=== PATIENT | female | born 1930 | race Caucasian/White ===

== ENCOUNTER 2018-04-18 16:07 | Emergency (ER) | payer MEDICARE, BC ==
[~2018-04-18] VITALS: Ht 160 cm; Wt 67.0 kg
[~2018-04-18 16:07] MED LIST: COUM2.5T PO; DOFE500 PO; FURO1TAB60 PO; LOSA50TA PO; METO50TA PO; NORC5TAB PO; OCUVTAB PO; PANT40TA3 PO; POTA-163 PO
[2018-04-18 16:46] VITALS: BP 113/69; PULSE 109; RESP 17; TEMP 97.3; O2SAT 98
[2018-04-18 17:46] LABS: BASOPHIL # 0.1 TH/MM3 (0-0.2); BASOPHIL % 2.1 % (0.0-2.0); EOSINOPHIL # 0.3 TH/MM3 (0-0.4); EOSINOPHIL % 5.1 % (0.0-4.0); HEMATOCRIT 37.3 % (35.0-46.0); HEMOGLOBIN 12.1 GM/DL (11.6-15.3); LYMPH % 19.4 % (9.0-44.0); MEAN CELL VOLUME 95.9 FL (80.0-100.0); MEAN CORPUSCULAR HEMOGLOBIN 31.1 PG (27.0-34.0); MEAN CORPUSCULAR HGB CONC 32.4 % (32.0-36.0); MEAN PLATELET VOLUME 7.9 FL (7.0-11.0); MONO % 14.6 % (0.0-8.0); MONOCYTE # 0.7 TH/MM3 (0-0.9); NEUT % 58.8 % (16.0-70.0); PLATELET COUNT 287 TH/MM3 (150-450); RED BLOOD COUNT 3.89 MIL/MM3 (4.00-5.30); WHITE BLOOD COUNT 5.1 TH/MM3 (4.0-11.0)
[2018-04-18 17:59] LABS: LACTIC ACID SEPSIS PROTOCOL 2.2 mmol/L (0.4-2.0)
[2018-04-18 18:02] LABS: ALBUMIN 3.3 GM/DL (3.4-5.0); ALT (GPT) 23 U/L (10-53); AST (GOT) 33 U/L (15-37); BICARBONATE 34.4 MEQ/L (21.0-32.0); BLOOD UREA NITROGEN 19 MG/DL (7-18); CALCIUM 8.8 MG/DL (8.5-10.1); CHLORIDE 102 MEQ/L (98-107); CREATININE 1.25 MG/DL (0.50-1.00); GLOMERULAR FILTRATION RATE 41 ML/MIN (>89); GLUCOSE,RANDOM 92 MG/DL (74-106); SODIUM (NA) 143 MEQ/L (136-145)
[2018-04-18 18:04] LABS: ALKALINE PHOSPHATASE 110 U/L (45-117); TOTAL BILIRUBIN ADULT 1.8 MG/DL (0.2-1.0); TOTAL PROTEIN 7.6 GM/DL (6.4-8.2)
[2018-04-18 19:24] LABS: BILIRUBIN, URINE NEG (NEG); BLOOD, URINE NEG (NEG); GLUCOSE,URINE NEG (NEG); KETONE, URINE NEG (NEG); NITRITE,URINE NEG (NEG); SQUAMOUS EPITHELIAL CELL URINE <1 /hpf (0-5); URINE COLOR LIGHT-YELLOW (YELLW/STRAW); URINE LEUKOCYTE ESTERASE NEG (NEG)
[2018-04-18 19:38] VITALS: BP 125/60; PULSE 109; RESP 18; O2SAT 98
--- NOTE | 2018-04-18 19:55 | PD ---
HPI Chief Complaint: Altered Mental Status Time Seen by Provider: 19:50 Travel History International Travel<30 days: No Contact w/Intl Traveler<30days: No Traveled to known affect area: No History of Present Illness HPI 87-year-old female presents to the emergency department by private transportation the care of her [id number]-uco for evaluation of possible altered mentation. Patient has underlying dementia diagnosis. Patient was recently hospitalized 1 month for pneumonia sepsis in [facility] and recently returned back to the [facility] where she lives with her daughter-in- law. Patient had been in the care of her grandson. Patient returned Sunday and according to the kibllccs-hh-xzz she was in her normal normal health and her baseline mentation. Patient was actually seen by her primary care provider Dr. Cisse on 04/17/18 for a routine medicine visit at which time her INR was checked and was reportedly elevated at 6.8. At that time the recommendation was to hold her Coumadin dosing. Reportedly according to the [id number]-mc-gmq last evening last afternoon she started act peculiar acting as though she was confused and even reportedly walked about the house without clothing at one point. The zmdfrigo-vr-crg phoned the primary care provider this morning Dr. Cisse and told her of her change in behavior he ordered a CT brain noncontrast to be performed as an outpatient for tomorrow at [place] but because of her intermittent confusion the daughter decided to bring her to the emergency department at this time. According to the daughter- in-law and the patient she has had no fever patient denies chills patient has had no headache no change in her speech no chest pain no shortness of breath no cough no abdominal pain no reported nausea no vomiting no diarrhea no dysuria no frequency no urgency no new joint pain joint swelling or skin rash. Patient has been noted to have some chronic recurrent pedal and ankle edema that is associated with dependent position but resolves upon lower extremity elevation. There is been no report of shortness of breath orthopnea PND dyspnea on exertion. Patient here denies any symptoms. Patient does report occasionally she will have some chest discomfort and while she was hospitalized she had chest discomfort that was treated with Tylenol but when she returned home she did receive a one-time dose of hydrocodone with acetaminophen that resolved her symptoms. Patient has had no chest pain over the past several days and daughter -in-law reports she only received a one-time half dose of hydrocodone with acetaminophen on Sunday and has had no subsequent doses of narcotic medication. Patient is taking no antibiotics. Patient's chronic medications does include warfarin. Past medical history is significant for hypertension atrial fibrillation aortic valve replacement CHF GERD pneumonia with sepsis and patient is status post aortic valve replacement hysterectomy AICD pacemaker placement and left ankle tib-fib fracture repair. No tobacco use no alcohol use. PFS Past Medical History Narrative Medical Coumadin therapy hypertension A. fib CHF GERD pneumonia sepsis aortic valve replacement and ICD pacemaker appendectomy hysterectomy left ankle fracture repair tib-fib fracture repair no tobacco use no alcohol use; nursing notes reviewed Arthritis: No Asthma: No Autoimmune Disease: No Anxiety: No Depression: No Heart Rhythm Problems: Yes (AFIB) Cancer: No Cardiovascular Problems: Yes High Cholesterol: No Chemotherapy: No Chest Pain: No Congestive Heart Failure: Yes COPD: No Cerebrovascular Accident: No Diabetes: No Diminished Hearing: Yes Endocrine: No Gastrointestinal Disorders: Yes (GERD) GERD: Yes Genitourinary: No Headaches: No Hiatal Hernia: No Heparin Induced Thrombocytopen: No Hypertension: Yes Immune Disorder: No Implanted Vascular Access Dvce: Yes Kidney Stones: No Musculoskeletal: No Neurologic: Yes Psychiatric: No Reproductive: No Respiratory: Yes Migraines: No Radiation Therapy: No Renal Failure: No Seizures: No Sickle Cell Disease: No Sleep Apnea: No Thyroid Disease: No Ulcer: No Tetanus Vaccination: Unknown Influenza Vaccination: Yes Past Surgical History Abdominal Surgery: Yes (APPENDECTOMY) AICD: Yes Appendectomy: Yes Arteriovenous Shunt: No Cardiac Surgery: Yes (AICD;AVR) Ear Surgery: No Endocrine Surgery: No Eye Surgery: No Genitourinary Surgery: No Gynecologic Surgery: No Hysterectomy: Yes Insulin Pump: No Joint Replacement: Yes (LEFT ANKLE//SPIRAL FX LEFT TIB/FIB) Neurologic Surgery: No Oral Surgery: No Pacemaker: No Thoracic Surgery: No Other Surgery: Yes Social History Alcohol Use: No Tobacco Use: No Substance Use: No Allergies-Medications (Allergen,Severity, Reaction): Coded Allergies: benazepril (Unverified Allergy, Severe, 06/26/17) captopril (Unverified Allergy, Severe, 06/26/17) enalaprilat (Unverified Allergy, Severe, 06/26/17) fosinopril (Unverified Allergy, Severe, 06/26/17) lisinopril (Unverified Allergy, Severe, 06/26/17) penicillin G (Unverified Allergy, Severe, 06/26/17) quinapril (Unverified Allergy, Severe, 06/26/17) Reported Meds & Prescriptions Reported Meds & Active Scripts Active Ceftin (Cefuroxime Axetil) 250 Mg Tab 500 Mg PO BID 7 Days Reported Spironolactone 25 Mg Tab 25 Mg PO DAILY Digoxin 0.125 Mg Tab 0.125 Mg PO DAILY [place] Respiclick Inh (Fluticasone Propionate) 55 Mcg/Actuation Aer.pow.ba 55 Mg INH BID Torsemide 20 Mg Tab 20 Mg PO DAILY Acetaminophen 325 Mg Capsule Lactulose Liq (Lactulose) 10 Gm/15 Ml Soln 30 Ml PO Q6H PRN Warfarin 4 Mg Tab 4 Mg PO DAILY [place] (Hydrocodone-Acetaminophen) 5-325 mg Tab 1-2 Tab PO Q6H PRN Ocuvite (Multiple Vitamins W/ Minerals) 1 Tab 1 Tab PO DAILY Metoprolol Tartrate 50 Mg Tab 50 Mg PO BID Potassium Chloride ER (Potassium Chloride) 20 Meq Tab 20 Meq PO QID (KLOR-CON) Review of Systems Except as stated in HPI: all other systems reviewed are Neg General / Constitutional: No: Fever, Chills HENT: No: Headaches, Lightheadedness, Sore Throat, Congestion, Neck Pain Cardiovascular: Positive: Edema (Dependent), No: Chest Pain or Discomfort, Palpitations, Diaphoresis, Syncope, Dyspnea on exertion Respiratory: No: Cough ( pedal and ankle edema), Shortness of Breath, Wheezing Gastrointestinal: No: Nausea, Vomiting, Diarrhea, Abdominal Pain Genitourinary: No: Urgency, Frequency, Dysuria Musculoskeletal: Positive: Edema, No: Myalgias, Arthralgias Skin: No Rash (Recurrent dependent pedal and ankle edema) Neurologic: Positive: Change in Mentation (Orxixxpv-it-zxe states intermittent agitation and at times behavior change), No: Weakness, Dizziness, Syncope, Focal Abnormalities Psychiatric: No: Anxiety, Depression, Suicidal Ideations Hematologic/Lymphatic: No: Easy Bruising (Noted elevated INR 04/17/18) Physical Exam Narrative GENERAL: Well-developed well-nourished pleasant female no acute distress no respiratory distress is aware of who she is where she is her date of her zpvwnlnb-tc-oif and identified president but unable to identify the year--this is baseline mentation according to fozyjvtk-cj-csf at bedside SKIN: Warm and dry. HEAD: Atraumatic. Normocephalic. EYES: Pupils equal and round. No scleral icterus. No injection or drainage. ENT: No nasal bleeding or discharge. Mucous membranes pink and moist. NECK: Trachea midline. No JVD. CARDIOVASCULAR: Regular rate and rhythm. RESPIRATORY: No accessory muscle use. Clear to auscultation. Breath sounds equal bilaterally. GASTROINTESTINAL: Abdomen soft, non-tender, nondistended. Hepatic and splenic margins not palpable. MUSCULOSKELETAL: Extremities without clubbing, cyanosis, bilateral distal lower leg ankle and pedal edema. No obvious deformities. Radial and dorsalis pedis pulses 2+ to palpation bilaterally NEUROLOGICAL: Awake and alert. No obvious cranial nerve deficits. Motor grossly within normal limits. Five out of 5 muscle strength in the arms and legs. Normal speech. PSYCHIATRIC: Appropriate mood and affect; insight and judgment normal. Data Data Last Documented VS Vital Signs Date Time Temp Pulse Resp B/P (MAP) Pulse Ox O2 Delivery O2 Flow Rate FiO2 04/18/18 23:22 04/18/18 22:52 95 16 98 Room Air 04/18/18 16:46 97.3 Orders Orders Complete Blood Count With Diff (04/18/18 16:48) Comprehensive Metabolic Panel (04/18/18 16:48) Urinalysis - C+S If Indicated (04/18/18 16:48) Lactic Acid Sepsis Protocol (04/18/18 16:48) Ct Brain W/O Iv Contrast(Rout) (04/18/18 ) Electrocardiogram (04/18/18 ) Chest, Single Ap (04/18/18 ) Troponin I (04/18/18 19:50) Ckmb (Isoenzyme) Profile (04/18/18 19:50) Lipase (04/18/18 19:50) Prothrombin Time / Inr (Pt) (04/18/18 19:50) Chest, Pa & Lat (04/18/18 ) Sodium Chlor 0.9% 250 Ml Inj (Ns 250 Ml (04/18/18 21:45) Blood Culture (04/18/18 22:42) Ceftriaxone Inj (Rocephin Inj) (04/18/18 22:45) Ed Discharge Order (04/18/18 23:21) Labs Laboratory Tests Test 04/18/18 17:25 04/18/18 18:48 04/18/18 20:10 White Blood Count 5.1 TH/MM3 Red Blood Count 3.89 MIL/MM3 Hemoglobin 12.1 GM/DL Hematocrit 37.3 % Mean Corpuscular Volume 95.9 FL Mean Corpuscular Hemoglobin 31.1 PG Mean Corpuscular Hemoglobin Concent 32.4 % Red Cell Distribution Width 18.0 % Platelet Count 287 TH/MM3 Mean Platelet Volume 7.9 FL Neutrophils (%) (Auto) 58.8 % Lymphocytes (%) (Auto) 19.4 % Monocytes (%) (Auto) 14.6 % Eosinophils (%) (Auto) 5.1 % Basophils (%) (Auto) 2.1 % Neutrophils # (Auto) 3.0 TH/MM3 Lymphocytes # (Auto) 1.0 TH/MM3 Monocytes # (Auto) 0.7 TH/MM3 Eosinophils # (Auto) 0.3 TH/MM3 Basophils # (Auto) 0.1 TH/MM3 CBC Comment DIFF FINAL Differential Comment Blood Urea Nitrogen 19 MG/DL Creatinine 1.25 MG/DL Random Glucose 92 MG/DL Total Protein 7.6 GM/DL Albumin 3.3 GM/DL Calcium Level 8.8 MG/DL Alkaline Phosphatase 110 U/L Aspartate Amino Transf (AST/SGOT) 33 U/L Alanine Aminotransferase (ALT/SGPT) 23 U/L Total Bilirubin 1.8 MG/DL Sodium Level 143 MEQ/L Potassium Level 3.6 MEQ/L Chloride Level 102 MEQ/L Carbon Dioxide Level 34.4 MEQ/L Anion Gap 7 MEQ/L Estimat Glomerular Filtration Rate 41 ML/MIN Lactic Acid Level 2.2 mmol/L 2.1 mmol/L Total Creatine Kinase 54 U/L Troponin I 0.02 NG/ML Lipase 206 U/L Urine Color LIGHT-YELLOW Urine Turbidity CLEAR Urine pH 7.0 Urine Specific [place] 1.006 Urine Protein NEG mg/dL Urine Glucose (UA) NEG mg/dL Urine Ketones NEG mg/dL Urine Occult Blood NEG Urine Nitrite NEG Urine Bilirubin NEG Urine Urobilinogen LESS THAN 2.0 MG/DL Urine Leukocyte Esterase NEG Urine RBC LESS THAN 1 /hpf Urine WBC LESS THAN 1 /hpf Urine Squamous Epithelial Cells <1 /hpf Microscopic Urinalysis Comment CULT NOT INDICATED Prothrombin Time 48.8 SEC Prothromb Time International Ratio 4.9 RATIO MDM Medical Decision Making Medical Screen Exam Complete: Yes Emergency Medical Condition: Yes Medical Record Reviewed: Yes Interpretation(s) EKG: Ventricular paced rhythm rate 114 Differential Diagnosis Altered mental status, dehydration, hypoxemia, sepsis, UTI, pneumonia, electrolyte disturbance, TIA, CVA, coagulopathy, dementia exacerbation, , adverse medication reaction Narrative Course Pleasant 87-year-old female in no acute distress no apparent distress vital signs remarkable for mild tachycardia heart rate 109 stable blood pressure O2 saturations and afebrile. Specimens collected per protocol in triage; additional orders will include EKG and cardiac enzymes INR is patient is on Coumadin and CT brain noncontrast and chest x-ray is patient with recent pneumonia; current lab values resulted CBC with automated differential normal total white cell count otherwise grossly within normal range except for nonspecific monocytosis; complete metabolic panel values grossly normal range except for renal insufficiency BUN 19 creatinine 1.25; urinalysis normal. EKG is paced rhythm rate of 114; cardiac enzymes are found to be in normal range ; INR is 4.9 this is decreased from reported INR of 6.8 at doctor's office yesterday; CT brain noncontrast reveals no acute intracranial abnormality and specifically no bleed; chest x-ray reveals no acute obvious abnormality on AP portable study although electrode overlies area of suspicion for possible infiltrate therefore electrodes changed location and chest x-ray PA and lateral ordered; also as part of initial labs ordered a lactic acid was obtained which was 2.2 mildly elevated however repeat lactic acid per sepsis protocol was 2.1 without any medication intervention. Patient will be given small bolus of normal saline in view of heart rate and renal insufficiency along with repeat chest x-ray and patient be reassessed for probable outpatient management as no clear indication for admission at this time @ 9:45 ambulates with ease with walker assistance to bathroom and back in no acute distress no respiratory distress without complaint of discomfort fatigue or pain. Patient and wnenqvee-[id number] informed INR has now decreased to 4.9 after holding Wednesdays dose of Coumadin and patient has not yet received dose of Coumadin is encouraged that this does be held as well with recommendation for INR recheck tomorrow Sunday through her primary care provider or through the emergency department. At this point time only significant lab abnormality with relative nonspecific information is a lactic acid of 2.2 upon initial assessment and because performed is a sepsis protocol repeat lactic acid was 2.1 without intervention patient is noted to have some mild renal insufficiency has been ordered a 250 bolus of normal saline remains afebrile in the emergency department will obtain additional complete set of vital signs with plan to discharge patient to home with close follow-up through primary care provider and with ongoing monitoring of temperature at home. At 11:20 PM patient is responded well to fluid hydration patient has been given one-time dose of IV antibiotic and stable for oral antibiotic as an outpatient patient is continue current medications as presently prescribed except she is to hold her warfarin/Coumadin dose again today 04/18/18 and she should have her INR checked tomorrow 04/19/18 at her primary care provider's office or through the emergency department. Patient is complete oral antibiotic as prescribed. Daughter is to monitor her closely for fever and patient and daughter are aware of plan for return to the emergency department for reevaluation should she develop fever or have another episode of change in behavior. Mentation appears intact at this time patient has been completely coherent cooperative and able to provide all her information [id number] affirming her mentation being back to normal at this time. Unclear as to significance of lactic acid of 2.2 patient has remained afebrile tachycardia has resolved and blood pressures remained stable patient appears stable at this time for outpatient management of nonspecific left pulmonary infiltrate on chest x-ray unclear if this is residual from pneumonia that was identified during hospitalization recently at [facility] supratherapeutic INR is being addressed with holding warfarin and identifies this to be tapering towards therapeutic range and dependent edema is a chronic condition that is not a new finding. Sepsis Criteria SIRS Criteria (2 or more): Heart rate over 90 Diagnosis Primary Impression: Supratherapeutic INR Additional Impressions: Left pulmonary infiltrate on CXR Dependent edema Referrals: Roman Cisse MD 1 day Patient Instructions: General Instructions Additional Instructions: Monitor temperature every 4 hours with thermometer administer as needed Tylenol every 4-6 hours for fever 100.4F or greater Encourage fluid hydration Elevate lower extremities Complete course of antibiotic as prescribed Follow-up with primary care provider 1 day for reevaluation and for INR check Return to the emergency department for concern or change in condition; recommend 1 day recheck to the emergency department if unable to be seen by primary care in order to have INR rechecked and to reassess status in 12-24 hours. Med/Other Pt SpecificInfo: Existing Med Changed (HOLD COUMADIN 04/18/18; INR check 04/19/18) Scripts Cefuroxime (Ceftin) 250 Mg Tab 500 MG PO BID for 7 Days, #28 TAB Prov: China Bernard MD 04/18/18 Disposition: 01 DISCHARGE HOME Condition: Stable China Bernard MD Apr 18, 2018 19:54
[2018-04-18 20:21] LABS: TROPONIN I 0.02 NG/ML (0.02-0.05)
--- NOTE | 2018-04-18 20:24 | RADRPT ---
EXAM DATE: 04/18/2018 8:18 PM EDT AGE/SEX: 87 years / Female INDICATIONS: Short of breath. CLINICAL DATA: This is the patient's initial encounter. Patient reports that signs and symptoms have been present for 1 day and indicates a pain score of 0/10. MEDICAL/SURGICAL HISTORY: . A-fib. Pacemaker. [place] [facility] [place]. . FINDINGS: Upright portable AP view of the chest demonstrates mildly enlarged cardiac silhouette with calcificat ion of the aorta. Median sternotomy wires are present with biventricular leads. EKG lines overlie the patient. No pleural effusion or pneumothorax is identified. There is a questionable opacity in the l eft midlung zone directly adjacent to the overlying EKG leads. Bones demonstrate no acute finding. CONCLUSION: 1. No definite acute abnormality is identified. 2. There is a questionable airspace opacity in the left midlung zone. There is an overlying EKG lead s in this region and therefore the density could be related to that structure. Suggest either attenti on to this at follow-up imaging when EKG leads are removed or consider repositioning EKG leads and re peating chest x-ray. Electronically signed by: Randy Wick MD 04/18/2018 8:22 PM EDT
--- NOTE | 2018-04-18 20:37 | RADRPT ---
EXAM DATE: 04/18/2018 8:30 PM EDT AGE/SEX: 87 years / Female INDICATIONS: Altered mental status. CLINICAL DATA: This is the patient's initial encounter. Patient reports that signs and symptoms have been present for 1 day and indicates a pain score of 0/10. MEDICAL/SURGICAL HISTORY: Hypertension. Congestive heart failure. Cardiovascular disease. Umbilic al hernia repair. RADIATION DOSE: 56.35 CTDI (mGy) [place] [facility] [place]. . TECHNIQUE: CT of the head without contrast. Using automated exposure control and adjustment of the mA and/or kV according to patient size, radiation dose was kept as low as reasonably achievable to ob tain optimal diagnostic quality images. FINDINGS: Cerebrum: There is mild generalized atrophy and ventricles are normal given the degree of atrophy. M ild periventricular white matter change is present. No midline shift, mass lesion, hemorrhage or acu te infarction. No extraaxial fluid collections are seen. Posterior Fossa: The cerebellum and brainstem demonstrate no acute abnormality. The 4th ventricle is midline. The cerebellopontine angle is within normal limits. Extracranial: The visualized sinuses are clear. Skull: The calvaria is intact. No skull fracture. CONCLUSION: 1. Stable noncontrast head CT. No acute intracranial abnormality is identified. 2. Stable chronic findings include mild generalized atrophy and periventricular white matter change characteristic of chronic microvascular ischemia. Electronically signed by: Randy Wick MD 04/18/2018 8:36 PM EDT
[2018-04-18 20:47] LABS: INTERNATIONAL NORMALIZED RATIO 4.9 RATIO; PROTHROMBIN TIME - PATIENT 48.8 SEC (9.8-11.6)
[2018-04-18] MEDS ORDERED: WARF-20 PO (21:22)
[2018-04-18] MEDS ORDERED: SPIR25TA PO (21:22)
[2018-04-18] MEDS ORDERED: LACT10SO PO (21:22)
[2018-04-18] MEDS ORDERED: DIGO0.12 PO (21:22)
[2018-04-18] MEDS ORDERED: TORS20TA PO (21:22)
[2018-04-18] MEDS ORDERED: FLUT55AE INH (21:22)
[2018-04-18] MEDS ORDERED: ACET325C (21:22)
[2018-04-18] MEDS ORDERED: SODIUM CHLOR 0.9% 250 ML INJ 250 ML IV ONE (21:45)
--- NOTE | 2018-04-18 22:23 | RADRPT ---
EXAM DATE: 04/18/2018 10:17 PM EDT AGE/SEX: 87 years / Female INDICATIONS: Possible altered mental status. Evaluate for pneumonia. CLINICAL DATA: This is the patient's initial encounter. Patient reports that signs and symptoms have been present for 3 days and indicates a pain score of 3/10. MEDICAL/SURGICAL HISTORY: Congestive heart failure. Gastroesophageal reflux disease. Hyperten alycia. AICD. AVR. AFIB. Hysterectomy. Appendectomy. Internal defibrillator COMPARISON: [facility], CHEST SINGLE AP, 04/18/2018. . FINDINGS: Frontal and lateral views of the chest demonstrate mildly enlarged cardiac silhouette with calcificat ion of the aorta. Median sternotomy wires are present. Left chest wall cardiac pacing device/AICD is in place. The EKG leads on the left was not removed. The right EKG lead has been removed. Lateral vie w demonstrates no definite airspace consolidation to correspond with the questionable opacity adjacen t to the EKG leads. However, there is mild airspace opacity in one of the lower lobes on the lateral projection. No pleural effusion or pneumothorax is seen. CONCLUSION: 1. Unfortunately, the left EKG leads was not moved as suggested. The right EKG leads was removed. Ho wever, on the lateral view I do not see a definite airspace opacity to correlate suggesting that it i s most likely related to overlying structures. Consider follow-up chest x-ray once condition improves . 2. Mild airspace opacity in one of the lower lobes only visualized on the lateral projection. This c ould represent atelectasis or consolidation. Electronically signed by: Randy Wick MD 04/18/2018 10:22 PM EDT
[2018-04-18 22:30] VITALS: BP 110/70; PULSE 105; RESP 16; O2SAT 98
[2018-04-18] MEDS ORDERED: CEFU1TAB18 PO (22:42)
[2018-04-18] MEDS ORDERED: cefTRIAXone INJ 1,000 MG in SODIUM CHLORIDE 0.9% INJ 100 ML IV ONE (22:45)
[2018-04-18 22:52] VITALS: BP 121/68; PULSE 100; PULSE 95; RESP 16; O2SAT 98
--- NOTE | 2018-04-19 16:16 | EKG ---
Date Performed: 04/18/2018 Time Performed: 20:01:25 PTAGE: 87 years EKG: ELECTRONIC VENTRICULAR PACEMAKER ABNORMAL RHYTHM ECG Compared to PREVIOUS TRACING , previously EKG showed atrial fibrillation. Present EKG shows dual oneil matilda pacing. PREVIOUS TRACIN09/24/2016 09.58 DOCTOR: Jb Mckeon Interpretating Date/Time 04/19/2018 16:15:39
== END 2018-04-18 23:38 | disposition home or self-care (01) ==
LOC: NEPC 16:07
DX: R79.1 Abnormal coagulation profile (principal); R91.8 Other nonspecific abnormal finding of lung field; R60.9 Edema, unspecified; R94.31 Abnormal electrocardiogram [ECG] [EKG]; F03.90 Unspecified dementia, unspecified severity, without behavioral disturbance, psychotic disturbance, mood disturbance, and anxiety; I11.0 Hypertensive heart disease with heart failure; I50.9 Heart failure, unspecified; K21.9 Gastro-esophageal reflux disease without esophagitis; I48.91 Unspecified atrial fibrillation
CPT/HCPCS: 70450; 71045; 71046; 80053; 81001; 82550; 83605; 83690; 84484; 85025; 85610; 87040; 93005; 96361; 96365; 99285; J0696; J7050

== ENCOUNTER 2018-04-20 21:06 | Inpatient (IN) | payer MEDICARE, BC ==
[~2018-04-20] VITALS: Ht 160 cm; Wt 59.0 kg
[~2018-04-20 21:06] MED LIST changes: +ACET325C; +CEFU1TAB18 PO; -COUM2.5T PO; +DIGO0.12 PO; -DOFE500 PO; +FLUT55AE INH; -FURO1TAB60 PO; +LACT10SO PO; -LOSA50TA PO; -PANT40TA3 PO; +SPIR25TA PO; +TORS20TA PO; +WARF-20 PO
[2018-04-20 21:19] VITALS: BP 119/68; PULSE 117; RESP 18; TEMP 98.1; O2SAT 99
[2018-04-20 21:26] VITALS: PULSE 90
[2018-04-20] MEDS ORDERED: SODIUM CHLORID 0.9% 500 ML INJ 500 ML IV ONE (21:30)
[2018-04-20] MEDS ORDERED: DOFE500 PO (21:30)
[2018-04-20] MEDS ORDERED: SODIUM CHLORIDE 0.9% FLUSH 10 ML FLUSH IV FLUSH PRN (21:30)
[2018-04-20 21:41] VITALS: O2SAT 98
[2018-04-20 21:42] VITALS: PULSE 127
--- NOTE | 2018-04-20 21:59 | PD ---
HPI Chief Complaint: Abnormal Results Time Seen by Provider: 21:49 Travel History International Travel<30 days: No Contact w/Intl Traveler<30days: No Traveled to known affect area: No History of Present Illness HPI Patient is an 87-year-old female presenting to the emergency department for evaluation of abnormal vital signs. [id number] stated that home health nurse was at their house this afternoon and patient's blood pressure was recorded at 98 over 60s. She was advised to call the [employer] developer who told her to come to the emergency department to be evaluated. She also states that patient's heart rate goes up and down as well. Patient has no physical complaints, she denies any chest pain, shortness of breath, abdominal pain, fever, chills, headache. Patient has a history of atrial fibrillation, she reports compliance with her medications. PFSH Past Medical History Atrial Fibrillation: Yes Congestive Heart Failure: Yes Diminished Hearing: Yes GERD: Yes Hypertension: Yes Implanted Vascular Access Dvce: Yes Neurologic: Yes Respiratory: Yes Tetanus Vaccination: Unknown Influenza Vaccination: No Past Surgical History AICD: Yes Appendectomy: Yes Cardiac Surgery: Yes (AVR) Hysterectomy: Yes Joint Replacement: Yes (LEFT ANKLE//SPIRAL FX LEFT TIB/FIB) Social History Alcohol Use: No Tobacco Use: No Substance Use: No Allergies-Medications (Allergen,Severity, Reaction): Coded Allergies: benazepril (Unverified Allergy, Severe, 04/20/18) captopril (Unverified Allergy, Severe, 04/20/18) enalaprilat (Unverified Allergy, Severe, 04/20/18) fosinopril (Unverified Allergy, Severe, 04/20/18) lisinopril (Unverified Allergy, Severe, 04/20/18) penicillin G (Unverified Allergy, Severe, 04/20/18) quinapril (Unverified Allergy, Severe, 04/20/18) Reported Meds & Prescriptions Reported Meds & Active Scripts Active Ceftin (Cefuroxime Axetil) 250 Mg Tab 500 Mg PO BID 7 Days Reported Tikosyn (Dofetilide) 500 Mcg Cap 500 Mcg PO BID For Creatinine Clearance >60 mL/min Spironolactone 25 Mg Tab 25 Mg PO DAILY Digoxin 0.125 Mg Tab 0.125 Mg PO DAILY [place]on[place] Respiclick Inh (Fluticasone Propionate) 55 Mcg/Actuation Aer.pow.ba 55 Mg INH BID Torsemide 20 Mg Tab 20 Mg PO DAILY Acetaminophen 325 Mg Capsule Lactulose Liq (Lactulose) 10 Gm/15 Ml Soln 30 Ml PO Q6H PRN Warfarin 4 Mg Tab 4 Mg PO DAILY [place] (Hydrocodone-Acetaminophen) 5-325 mg Tab 1-2 Tab PO Q6H PRN Ocuvite (Multiple Vitamins W/ Minerals) 1 Tab 1 Tab PO DAILY Metoprolol Tartrate 50 Mg Tab 50 Mg PO BID Potassium Chloride ER (Potassium Chloride) 20 Meq Tab 20 Meq PO QID (KLOR-CON) Review of Systems Except as stated in HPI: all other systems reviewed are Neg General / Constitutional: No: Fever, Chills Eyes: No: Blurred Vision HENT: No: Headaches, Lightheadedness Cardiovascular: Positive: Irregular Rhythm, No: Chest Pain or Discomfort Respiratory: No: Shortness of Breath Gastrointestinal: No: Nausea, Abdominal Pain Physical Exam Narrative GENERAL: Well-developed, well-nourished, alert elderly female. Presenting in no acute distress. SKIN: Warm and dry. HEAD: Atraumatic. Normocephalic. EYES: Pupils equal and round. No scleral icterus. No injection or drainage. ENT: No nasal bleeding or discharge. Mucous membranes pink and moist. NECK: Trachea midline. No JVD. CARDIOVASCULAR: Irregularly irregular RESPIRATORY: No accessory muscle use. Clear to auscultation. Breath sounds equal bilaterally. GASTROINTESTINAL: Abdomen soft, non-tender, nondistended. Hepatic and splenic margins not palpable. MUSCULOSKELETAL: Extremities without clubbing, cyanosis, or edema. No obvious deformities. NEUROLOGICAL: Awake and alert. No obvious cranial nerve deficits. Motor grossly within normal limits. Five out of 5 muscle strength in the arms and legs. Normal speech. PSYCHIATRIC: Appropriate mood and affect; insight and judgment normal. Data Data Last Documented VS Vital Signs Date Time Temp Pulse Resp B/P (MAP) Pulse Ox O2 Delivery O2 Flow Rate FiO2 04/20/18 21:42 127 04/20/18 21:41 98 Room Air 04/20/18 21:19 98.1 18 Orders Orders Electrocardiogram (04/20/18 21:28) Complete Blood Count With Diff (04/20/18 21:28) Comprehensive Metabolic Panel (04/20/18 21:28) Prothrombin Time / Inr (Pt) (04/20/18 21:28) Act Partial Throm Time (Ptt) (04/20/18 21:28) Chest, Single Ap (04/20/18 21:28) Ecg Monitoring (04/20/18 21:28) Iv Access Insert/Monitor (04/20/18 21:28) Oximetry (04/20/18 21:28) Sodium Chloride 0.9% Flush (Ns Flush) (04/20/18 21:30) Sodium Chlorid 0.9% 500 Ml Inj (Ns 500 M (04/20/18 21:30) Troponin I (04/20/18 22:16) Ckmb (Isoenzyme) Profile (04/20/18 22:16) Acetaminophen (Tylenol) (04/20/18 22:30) Metoprolol Tartrate Inj (Lopressor Inj) (04/20/18 22:30) Labs Laboratory Tests Test 04/20/18 21:55 White Blood Count 6.2 TH/MM3 Red Blood Count 3.74 MIL/MM3 Hemoglobin 11.7 GM/DL Hematocrit 35.8 % Mean Corpuscular Volume 95.7 FL Mean Corpuscular Hemoglobin 31.2 PG Mean Corpuscular Hemoglobin Concent 32.6 % Red Cell Distribution Width 18.2 % Platelet Count 259 TH/MM3 Mean Platelet Volume 7.9 FL Neutrophils (%) (Auto) 66.4 % Lymphocytes (%) (Auto) 14.8 % Monocytes (%) (Auto) 12.9 % Eosinophils (%) (Auto) 5.0 % Basophils (%) (Auto) 0.9 % Neutrophils # (Auto) 4.1 TH/MM3 Lymphocytes # (Auto) 0.9 TH/MM3 Monocytes # (Auto) 0.8 TH/MM3 Eosinophils # (Auto) 0.3 TH/MM3 Basophils # (Auto) 0.1 TH/MM3 CBC Comment DIFF FINAL Differential Comment Blood Urea Nitrogen 29 MG/DL Creatinine 2.06 MG/DL Random Glucose 98 MG/DL Total Protein 7.0 GM/DL Albumin 2.9 GM/DL Calcium Level 8.4 MG/DL Alkaline Phosphatase 103 U/L Aspartate Amino Transf (AST/SGOT) 31 U/L Alanine Aminotransferase (ALT/SGPT) 21 U/L Total Bilirubin 1.3 MG/DL Sodium Level 137 MEQ/L Potassium Level 4.6 MEQ/L Chloride Level 100 MEQ/L Carbon Dioxide Level 26.5 MEQ/L Anion Gap 11 MEQ/L Estimat Glomerular Filtration Rate 23 ML/MIN MDM Medical Decision Making Medical Screen Exam Complete: Yes Emergency Medical Condition: Yes Medical Record Reviewed: Yes Interpretation(s) Vital Signs Date Time Temp Pulse Resp B/P (MAP) Pulse Ox O2 Delivery O2 Flow Rate FiO2 04/20/18 21:42 127 04/20/18 21:41 98 Room Air 04/20/18 21:26 90 04/20/18 21:19 98.1 117 18 119/68 (85) 99 Room Air Differential Diagnosis Cardiac arrhythmia versus metabolic abnormality versus hypotension versus normal examination versus other Narrative Course Patient is well-appearing 87-year-old female presenting for evaluation of abnormal vital signs. Patient is normotensive in the emergency department, her heart rate does fluctuate between low 100s and 120s. Patient was seen and evaluated in the emergency department 2 days ago. She had an essentially negative workup at that time and was discharged home. Again patient has no complaints at this time. She was sent in on the advice of her home health nurse. We will check basic labs, EKG and chest x-ray. Patient was given a small fluid bolus. 2014 patient complained of chest pain. She asked for a Lortab or Tylenol for the pain. She states after that she would feel better. Cardiac enzymes were added onto patient's labs. Discussed findings with my attending physician. Dr. Dorantes ordered Lopressor 3 doses as needed for tachycardia. Care of patient transferred to my attending physician, she will determine patient's disposition. Laura Saleem Apr 20, 2018 21:59
--- NOTE | 2018-04-20 22:06 | RADRPT ---
EXAM DATE: 04/20/2018 9:57 PM EDT AGE/SEX: 87 years / Female INDICATIONS: Palpitations. General weakness. CLINICAL DATA: This is the patient's initial encounter. Patient reports that signs and symptoms have been present for 1 day and indicates a pain score of 0/10. MEDICAL/SURGICAL HISTORY: . Congestive heart failure. Gastroesophageal reflux disease. Hyperten alycia. AICD. AVR. AFIB. . Hysterectomy. Appendectomy. Internal defibrillator. COMPARISON: [facility] [place], CHEST SINGLE AP, 04/18/2018. . FINDINGS: Facial leads overlie right atrium, right ventricle and coronary sinus. Cardiomegaly. Subsegmental bas ilar airspace disease. No effusion. No pneumothorax. CONCLUSION: Subsegmental basilar opacity most characteristic of atelectasis. Cardiomegaly with pacer leads as abo ve. Electronically signed by: Dylan Vasquez MD 04/20/2018 10:05 PM EDT
[2018-04-20 22:15] LABS: AUTOMATED NEUTROPHIL # 4.1 TH/MM3 (1.8-7.7); BASOPHIL # 0.1 TH/MM3 (0-0.2); BASOPHIL % 0.9 % (0.0-2.0); EOSINOPHIL # 0.3 TH/MM3 (0-0.4); HEMATOCRIT 35.8 % (35.0-46.0); HEMOGLOBIN 11.7 GM/DL (11.6-15.3); LYMPH % 14.8 % (9.0-44.0); LYMPHOCYTE # 0.9 TH/MM3 (1.0-4.8); MEAN CELL VOLUME 95.7 FL (80.0-100.0); MEAN CORPUSCULAR HEMOGLOBIN 31.2 PG (27.0-34.0); MEAN CORPUSCULAR HGB CONC 32.6 % (32.0-36.0); MEAN PLATELET VOLUME 7.9 FL (7.0-11.0); MONO % 12.9 % (0.0-8.0); MONOCYTE # 0.8 TH/MM3 (0-0.9); NEUT % 66.4 % (16.0-70.0); PLATELET COUNT 259 TH/MM3 (150-450); RED BLOOD COUNT 3.74 MIL/MM3 (4.00-5.30); RED CELL DISTRIBUTION WIDTH 18.2 % (11.6-17.2); WHITE BLOOD COUNT 6.2 TH/MM3 (4.0-11.0)
[2018-04-20] MEDS ORDERED: ACETAMINOPHEN 325 MG TAB PO ONE (22:30)
[2018-04-20] MEDS: METOPROLOL TARTRATE 5 MG/5 ML VIAL IV PUSH PRN (22:36)
[2018-04-20 22:37] LABS: ALBUMIN 2.9 GM/DL (3.4-5.0); ALKALINE PHOSPHATASE 103 U/L (45-117); ALT (GPT) 21 U/L (10-53); AST (GOT) 31 U/L (15-37); BICARBONATE 26.5 MEQ/L (21.0-32.0); BLOOD UREA NITROGEN 29 MG/DL (7-18); CALCIUM 8.4 MG/DL (8.5-10.1); CHLORIDE 100 MEQ/L (98-107); CREATININE 2.06 MG/DL (0.50-1.00); GLOMERULAR FILTRATION RATE 23 ML/MIN (>89); GLUCOSE,RANDOM 98 MG/DL (74-106); SODIUM (NA) 137 MEQ/L (136-145); TOTAL BILIRUBIN ADULT 1.3 MG/DL (0.2-1.0)
[2018-04-20 23:02] LABS: TROPONIN I 0.04 NG/ML (0.02-0.05)
[2018-04-20 23:28] VITALS: BP 118/60; PULSE 124; RESP 18; O2SAT 96
[2018-04-20 23:36] LABS: INTERNATIONAL NORMALIZED RATIO 3.5 RATIO; PROTHROMBIN TIME - PATIENT 35.7 SEC (9.8-11.6)
[2018-04-20 23:55] VITALS: BP 116/57; PULSE 130; RESP 18; O2SAT 98
[2018-04-21] VITALS (14 sets, daily range): BP systolic 76–116; BP diastolic 43–70; PULSE 69–127; RESP 12–22; TEMP 97.6–98; O2SAT 98–100
[2018-04-21] MEDS: METOPROLOL TARTRATE 5 MG/5 ML VIAL IV PUSH PRN
[2018-04-21] MEDS ORDERED: ESMOLOL DRIP INJ PREMIX 250 ML IV PRN (00:45)
--- NOTE | 2018-04-21 01:31 | PD ---
Physical Exam Date Seen by Provider: Apr 21, 2018 Data Data Last Documented VS Vital Signs Date Time Temp Pulse Resp B/P (MAP) Pulse Ox O2 Delivery O2 Flow Rate FiO2 04/21/18 01:06 125 115/58 04/21/18 00:59 18 98 Room Air 04/20/18 21:19 98.1 Orders Orders Electrocardiogram (04/20/18 21:28) Complete Blood Count With Diff (04/20/18 21:28) Comprehensive Metabolic Panel (04/20/18 21:28) Prothrombin Time / Inr (Pt) (04/20/18 21:28) Act Partial Throm Time (Ptt) (04/20/18 21:28) Chest, Single Ap (04/20/18 21:28) Ecg Monitoring (04/20/18:28) Iv Access Insert/Monitor (04/20/18 21:28) Oximetry (04/20/18 21:28) Sodium Chloride 0.9% Flush (Ns Flush) (04/20/18 21:30) Sodium Chlorid 0.9% 500 Ml Inj (Ns 500 M (04/20/18 21:30) Troponin I (04/20/18 22:16) Ckmb (Isoenzyme) Profile (04/20/18 22:16) Acetaminophen (Tylenol) (04/20/18 22:30) Metoprolol Tartrate Inj (Lopressor Inj) (04/20/18 22:30) Esmolol Drip Inj Premix (Brevibloc Drip (04/21/18 00:45) Admit Order (Ed Use Only) (04/21/18 01:31) Labs Laboratory Tests Test 04/20/18 21:55 04/20/18 22:44 White Blood Count 6.2 TH/MM3 Red Blood Count 3.74 MIL/MM3 Hemoglobin 11.7 GM/DL Hematocrit 35.8 % Mean Corpuscular Volume 95.7 FL Mean Corpuscular Hemoglobin 31.2 PG Mean Corpuscular Hemoglobin Concent 32.6 % Red Cell Distribution Width 18.2 % Platelet Count 259 TH/MM3 Mean Platelet Volume 7.9 FL Neutrophils (%) (Auto) 66.4 % Lymphocytes (%) (Auto) 14.8 % Monocytes (%) (Auto) 12.9 % Eosinophils (%) (Auto) 5.0 % Basophils (%) (Auto) 0.9 % Neutrophils # (Auto) 4.1 TH/MM3 Lymphocytes # (Auto) 0.9 TH/MM3 Monocytes # (Auto) 0.8 TH/MM3 Eosinophils # (Auto) 0.3 TH/MM3 Basophils # (Auto) 0.1 TH/MM3 CBC Comment DIFF FINAL Differential Comment Blood Urea Nitrogen 29 MG/DL Creatinine 2.06 MG/DL Random Glucose 98 MG/DL Total Protein 7.0 GM/DL Albumin 2.9 GM/DL Calcium Level 8.4 MG/DL Alkaline Phosphatase 103 U/L Aspartate Amino Transf (AST/SGOT) 31 U/L Alanine Aminotransferase (ALT/SGPT) 21 U/L Total Bilirubin 1.3 MG/DL Sodium Level 137 MEQ/L Potassium Level 4.6 MEQ/L Chloride Level 100 MEQ/L Carbon Dioxide Level 26.5 MEQ/L Anion Gap 11 MEQ/L Estimat Glomerular Filtration Rate 23 ML/MIN Total Creatine Kinase 56 U/L Troponin I 0.04 NG/ML Prothrombin Time 35.7 SEC Prothromb Time International Ratio 3.5 RATIO Activated Partial Thromboplast Time 42.5 SEC MDM Medical Record Reviewed: Yes Supervised Visit with NEAL: Yes Narrative Course I, Dr. Dorantes, have reviewed the advance practice practitioner's documentation and am in agreement, met with the patient face to face, made the diagnosis, and the medical decision making was done by me. *My assessment and Findings: Patient is an 87-year-old female who returns to the emergency room for evaluation of abnormal vital signs. As per the home health nurse, patient was hypotensive with a blood pressure of 98/60 at home today. Reports concerns of an abnormal heart rate as her heart rate goes high to low and has been erratic. Patient does have history of atrial fibrillation is not taking Lopressor for this. She does follow up with Dr. Pichardo in the office, reports that they have been trying to get an appointment for the past week with him but is unable to reach him. Also reports that she was recently hospitalized for treatment of pneumonia in [place], reports that she was seen in the emergency room a few days ago and was also diagnosed with pneumonia and was discharged on antibiotics. Patient at this point has no complaints. Patient reports that she did have chest pain while in the emergency room, patient was found to be in A. fib with RVR. Patient was given 3 doses of Lopressor 5 mg IV 5 minutes apart, heart rate still in the 120s-130s. An esmolol drip was started, patient will require admission to the ICU. Patient's INR is 3.5, she is currently on Coumadin as she has history of atrial fibrillation. Patient's BUN is 29, creatinine is 2.06 which is elevated from baseline. Patient was placed on esmolol gtt, hr now 80. Case reviewed with Dr Hay who accepts pt to service Critical Care Narrative Aggregate critical care time was 30 minutes. Time to perform other separately billable procedures was not included in the critical care time. My time did not include minutes spent treating any other patients simultaneously or on activities that did not directly contribute to the patient's treatment. The services I provided to this patient were to treat and/or prevent clinically significant deterioration that could result in: , decompensation, deterioration. I provided critical care services requiring my management, as noted below: Chart data review, documentation time, medication orders and management, vital sign assessments/reviewing monitor data, ordering and reviewing lab tests, ordering and interpreting/reviewing x-rays and diagnostic studies, care of the patient and discussion of the patient with the admitting physicians. Diagnosis Primary Impression: Atrial fibrillation with RVR Additional Impressions: Renal failure Chest pain Admitting Information Admitting Physician Requests: Admit Jenny Dorantes DO Apr 21, 2018 01:31
[2018-04-21] MEDS ORDERED: SODIUM CHLOR 0.9% 1000 ML INJ 1,000 ML IV SCH ×2 (02:59→04:45)
[2018-04-21] MEDS ORDERED: ACETAMINOPHEN/HYDROcodone 325 MG/5 MG TAB PO PRN (03:00)
[2018-04-21] MEDS ORDERED: NURSING INFORMATION XX SCH (03:00)
[2018-04-21] MEDS ORDERED: ONDANSETRON ODT 4 MG TAB PO PRN (03:00)
[2018-04-21] MEDS ORDERED: SODIUM CHLORIDE 0.9% FLUSH 10 ML FLUSH IV FLUSH PRN (03:00)
[2018-04-21] MEDS ORDERED: CHLORHEXIDINE GLUCONATE 2 % 1 PACK (2 CLOTHS) TOP PRN (03:00)
[2018-04-21] MEDS ORDERED: SENNOSIDES 8.6 MG TAB PO PRN (03:00)
[2018-04-21] MEDS ORDERED: LACTULOSE SYRUP 20 GM/30 ML CUP PO PRN (03:00)
[2018-04-21] MEDS ORDERED: TEMAZEPAM 15 MG CAP PO PRN (03:00)
[2018-04-21] MEDS ORDERED: ACETAMINOPHEN 325 MG TAB PO PRN (03:00)
[2018-04-21] MEDS ORDERED: BISACODYL 10 MG SUPP RECTAL PRN (03:00)
[2018-04-21] MEDS ORDERED: MAGNESIUM HYDROXIDE SUSP 30 ML CUP PO PRN (03:00)
[2018-04-21] MEDS ORDERED: RESP: ALBUTEROL 2.5 MG/IPRATROPIUM 0.5 MG NEB (PRN) INH (03:00)
--- NOTE | 2018-04-21 03:02 | HHI.HP ---
[facility] Service Critical Care Medicine Primary Care Physician Roman Cisse MD Admission Diagnosis Afib with RVR Diagnosis: Travel History International Travel<30 Days: No Contact w/Intl Traveler <30 Da: No Traveled to Known Affected Are: No History of Present Illness 87-year-old female presents for an evaluation of abnormal vital signs. Daughter -in-law stated that home health nurse was at their house this afternoon and patient's blood pressure was recorded at 98 over 60s. She was advised to call the metal pattern maker who told her to come to the emergency department to be evaluated. She also states that patient's heart rate goes up and down as well. Patient has no physical complaints, she denies any chest pain, shortness of breath, abdominal pain, fever, chills, headache. Patient has a history of atrial fibrillation, she reports compliance with her medications. Review of Systems Constitutional: DENIES: Diaphoretic episodes, Fatigue, Fever, Weight gain, Weight loss, Chills, Dizziness, Change in appetite, Night Sweats Endocrine: DENIES: Abnorml menstrual pattern, Heat/cold intolerance, Polydipsia , Polyuria, Polyphagia Eyes: DENIES: Blurred vision, Diplopia, Eye inflammation, Eye pain, Vision loss , Photosensitivity, Double Vision Ears, nose, mouth, throat: DENIES: Tinnitus, Hearing loss, Vertigo, Nasal discharge, Oral lesions, Throat pain, Hoarseness, Ear Pain, Running Nose, Epistaxis, Sinus Pain, Toothache, Odynophagia Respiratory: DENIES: Apneas, Cough, Snoring, Wheezing, Hemoptysis, Sputum production, Shortness of breath Cardiovascular: DENIES: Chest pain, Palpitations, Syncope, Dyspnea on Exertion , PND, Lower Extremity Edema, Orthopnea, Claudication Gastrointestinal: DENIES: Abdominal pain, Black stools, Bloody stools, Constipation, Diarrhea, Nausea, Vomiting, Difficulty Swallowing, Anorexia Genitourinary: DENIES: Abnormal vaginal bleeding, Dysmenorrhea, Dyspareunia, Sexual dysfunction, Urinary frequency, Urinary incontinence, Urgency, Hematuria , Dysuria, Nocturia, Vaginal discharge Musculoskeletal: DENIES: Joint pain, Muscle aches, Stiffness, Joint Swelling, Back pain, Neck pain Integumentary: DENIES: Abnormal pigmentation, Pruritus, Rash, Nail changes, Breast masses, Breast skin changes, Nipple discharge Hematologic/lymphatic: DENIES: Bruising, Lymphadenopathy Immunologic/allergic: DENIES: Eczema, Urticaria Neurologic: DENIES: Abnormal gait, Headache, Localized weakness, Paresthesias, Seizures, Speech Problems, Tremor, Poor Balance Psychiatric: DENIES: Anxiety, Confusion, Mood changes, Depression, Hallucinations, Agitation, Suicidal Ideation, Homicidal Ideation, Delusions Past Family Social History Allergies: Coded Allergies: benazepril (Unverified Allergy, Severe, 04/20/18) captopril (Unverified Allergy, Severe, 04/20/18) enalaprilat (Unverified Allergy, Severe, 04/20/18) fosinopril (Unverified Allergy, Severe, 04/20/18) lisinopril (Unverified Allergy, Severe, 04/20/18) penicillin G (Unverified Allergy, Severe, 04/20/18) quinapril (Unverified Allergy, Severe, 04/20/18) Past Medical History Aortic valve replacement on chronic anticoagulation with Coumadin AICD/pacemaker, Chronic congestive heart failure Hypertension Atrial fibrillation Past Surgical History Aortic valve replacement with mechanical valve on chronic anticoagulation with Coumadin AICD/pacemaker placement Appendectomy 2 Fracture of the left tibia and fibula status post repair February 2016 Left hip fracture with left hip intramedullary near nail placement 06/09/2016 Reported Medications Reported Meds & Active Scripts Active Ceftin (Cefuroxime Axetil) 250 Mg Tab 500 Mg PO BID 7 Days Reported Tikosyn (Dofetilide) 500 Mcg Cap 500 Mcg PO BID For Creatinine Clearance >60 mL/min Spironolactone 25 Mg Tab 25 Mg PO DAILY Digoxin 0.125 Mg Tab 0.125 Mg PO DAILY Armonair Respiclick Inh (Fluticasone Propionate) 55 Mcg/Actuation Aer.pow.ba 55 Mg INH BID Torsemide 20 Mg Tab 20 Mg PO DAILY Acetaminophen 325 Mg Capsule Lactulose Liq (Lactulose) 10 Gm/15 Ml Soln 30 Ml PO Q6H PRN Warfarin 4 Mg Tab 4 Mg PO DAILY [place] (Hydrocodone-Acetaminophen) 5-325 mg Tab 1-2 Tab PO Q6H PRN Ocuvite (Multiple Vitamins W/ Minerals) 1 Tab 1 Tab PO DAILY Metoprolol Tartrate 50 Mg Tab 50 Mg PO BID Potassium Chloride ER (Potassium Chloride) 20 Meq Tab 20 Meq PO QID (KLOR-CON) Active Ordered Medications Current Medications Medications (Trade) Dose Ordered Sig/Suman Route PRN Reason Start Time Stop Time Status Last Admin Dose Admin Metoprolol Tartrate (Lopressor Inj) 5 mg Q5M PRN IV PUSH RAPID HEART RATE 04/20/18 22:30 04/21/18 00:00 Digoxin (Lanoxin) 0.125 mg DAILY PO 04/21/18 09:00 Dofetilide (Tikosyn) 500 mcg BID PO 04/21/18 09:00 Acetaminophen/ Hydrocodone Bitart ([place] 5-325 Mg) 1 tab Q6H PRN PO PAIN 04/21/18 03:00 Metoprolol Tartrate (Lopressor) 50 mg BID PO 04/21/18 09:00 Vit C/Vit E/Zinc/ Copper/Lutein (Ocuvite) 1 tab DAILY PO 04/21/18 09:00 Potassium Chloride (KCl) 20 meq QID PO 04/21/18 09:00 Spironolactone (Aldactone) 25 mg DAILY PO 04/21/18 09:00 Torsemide (Demadex) 20 mg DAILY PO 04/21/18 09:00 Warfarin Sodium (Coumadin) 4 mg DAILY@1600 PO 04/21/18 16:00 Patient Own Medication PT OWN MED: Fluticas... BID INH 04/21/18 09:00 Esmolol HCl/ Sodium Chloride 250 ml @ 18.6 mls/hr TITRATE PRN IV Blood Pressure Management 04/21/18 03:00 Sodium Chloride 1,000 ml @ 84 mls/hr [id number] IV 04/21/18 02:59 04/21/18 14:53 04/21/18 03:42 Sodium Chloride (NS Flush) 2 ml UNSCH PRN IV FLUSH FLUSH AFTER USING IV ACCESS 04/21/18 03:00 Sodium Chloride (NS Flush) 2 ml BID IV FLUSH 04/21/18 09:00 Acetaminophen (Tylenol) 650 mg Q6H PRN PO PAIN 1-10 AND/OR FEVER >101F 04/21/18 03:00 Famotidine (Pepcid) 20 mg Q12HR PO 04/21/18 09:00 Ondansetron HCl (Zofran Odt) 4 mg Q6H PRN PO NAUSEA OR VOMITING 04/21/18 03:00 Temazepam (Restoril) 15 mg HS PRN PO INSOMNIA 04/21/18 03:00 Albuterol/ Ipratropium (Duoneb Neb) 1 ampule Q2HR NEB PRN INH WHEEZING 04/21/18 03:00 Heparin Sodium (Porcine) (Heparin Inj) 5,000 units Q8H SQ 04/21/18 06:00 Miscellaneous Information ([facility] [place] [facility]) 1 [id number] XX 04/21/18 03:00 04/21/18 03:00 Chlorhexidine Gluconate (Chlorhexidine 2% Cloth) 3 pack Taper DAILY@04 TOP 04/21/18 04:00 04/17/19 03:59 04/21/18 03:13 Chlorhexidine Gluconate (Chlorhexidine 2% Cloth) 3 pack UNSCH PRN TOP HYGIENIC CARE 04/21/18 03:00 Senna/Docusate Sodium (Rhea-Colace) 1 tab BID PO 04/21/18 09:00 Magnesium Hydroxide (Milk Of Magnesia Liq) 30 ml Q12H PRN PO Mild constipation 04/21/18 03:00 Sennosides (Senokot) 17.2 mg Q12H PRN PO Moderate constipation 04/21/18 03:00 Bisacodyl (Dulcolax Supp) 10 mg DAILY PRN RECTAL SEVERE CONSITIPATION 04/21/18 03:00 Lactulose (Lactulose Liq) 30 ml DAILY PRN PO SEVERE CONSITIPATION 04/21/18 03:00 Family History Patient's mother in her 90s of old age did have hypertension Patient's father 68 secondary congestive heart failure Social History Patient lives at home with her [id number] EtOH use proximally once a month she'll have a beer with pizza She quit smoking 40+ years ago Denies illicit drug use Physical Exam Vital Signs Vital Signs Date Time Temp Pulse Resp B/P (MAP) Pulse Ox O2 Delivery O2 Flow Rate FiO2 04/21/18 01:53 80 16 101/48 (65) 98 Room Air 04/21/18 01:06 125 115/58 04/21/18 00:59 124 18 115/60 (78) 98 Room Air 04/21/18 00:09 127 04/20/18 23:55 130 18 116/57 (76) 98 Room Air 04/20/18 23:28 124 18 118/60 (79) 96 Room Air 04/20/18 21:42 127 04/20/18 21:41 98 Room Air 04/20/18 21:26 90 04/20/18 21:19 98.1 117 18 119/68 (85) 99 Room Air Physical Exam GENERAL: Well-nourished, well-developed patient. SKIN: Warm and dry. HEAD: Normocephalic. EYES: No scleral icterus. No injection or drainage. NECK: Supple, trachea midline. No JVD or lymphadenopathy. CARDIOVASCULAR: Regular rate and rhythm without gallops, or rubs. RESPIRATORY: Breath sounds equal bilaterally. No accessory muscle use. GASTROINTESTINAL: Abdomen soft, non-tender, nondistended. MUSCULOSKELETAL: No cyanosis, or edema. BACK: Nontender without obvious deformity. NEURO EXAM: GCS: 15 Mental Status: The patient is alert and oriented to person, place, and time with normal speech. Cranial Nerves: Visual acuity intact bilaterally. Visual mueller normal in all quadrants. Pupils are round, reactive to light. Extraocular movements are intact without ptosis. Hearing is normal bilaterally. Voice is normal. Tongue protrudes midline and moves symmetrically. Laboratory Laboratory Tests Test 04/20/18 21:55 04/20/18 22:44 White Blood Count 6.2 Red Blood Count 3.74 Hemoglobin 11.7 Hematocrit 35.8 Mean Corpuscular Volume 95.7 Mean Corpuscular Hemoglobin 31.2 Mean Corpuscular Hemoglobin Concent 32.6 Red Cell Distribution Width 18.2 Platelet Count 259 Mean Platelet Volume 7.9 Neutrophils (%) (Auto) 66.4 Lymphocytes (%) (Auto) 14.8 Monocytes (%) (Auto) 12.9 Eosinophils (%) (Auto) 5.0 Basophils (%) (Auto) 0.9 Neutrophils # (Auto) 4.1 Lymphocytes # (Auto) 0.9 Monocytes # (Auto) 0.8 Eosinophils # (Auto) 0.3 Basophils # (Auto) 0.1 CBC Comment DIFF FINAL Differential Comment Blood Urea Nitrogen 29 Creatinine 2.06 Random Glucose 98 Total Protein 7.0 Albumin 2.9 Calcium Level 8.4 Alkaline Phosphatase 103 Aspartate Amino Transf (AST/SGOT) 31 Alanine Aminotransferase (ALT/SGPT) 21 Total Bilirubin 1.3 Sodium Level 137 Potassium Level 4.6 Chloride Level 100 Carbon Dioxide Level 26.5 Anion Gap 11 Estimat Glomerular Filtration Rate 23 Total Creatine Kinase 56 Troponin I 0.04 Prothrombin Time 35.7 Prothromb Time International Ratio 3.5 Activated Partial Thromboplast Time 42.5 Result Diagram: 04/20/18215404/20/182154 Imaging Last 24 hours Impressions Chest X-Ray 04/20/182127 Signed Impressions: CONCLUSION: Subsegmental basilar opacity most characteristic of atelectasis. Cardiomegaly w ith pacer leads as above. Caprini VTE Risk Assessment Caprini VTE Risk Assessment: Mod/High Risk (score >= 2) Caprini Risk Assessment Model Point Value = 1 Point Value = 2 Point Value = 3 Point Value = 5 Age 41-60 Minor surgery BMI > 25 kg/m2 Swollen legs Varicose veins or History of unexplained or recurrent spontaneous Oral contraceptives or hormone replacement Sepsis (< 1 month) Serious lung disease, including pneumonia (< 1 month) Abnormal pulmonary function Acute myocardial infarction Congestive heart failure (< 1 month) History of inflammatory bowel disease Medical patient at bed rest Age 61-74 Arthroscopic surgery Major open surgery (> 45 min) Laparoscopic surgery (> 45 min) Malignancy Confined to bed (> 72 hours) Immobilizing plaster cast Central venous access Age >= 75 History of VTE Family history of VTE Factor V Leiden Prothrombin [id number] Lupus anticoagulant Anticardiolipin antibodies Elevated serum homocysteine Heparin-induced thrombocytopenia Other congenital or acquired thrombophilia Stroke (< 1 month) Elective arthroplasty Hip, pelvis, or leg fracture Acute spinal cord injury (< 1 month) Prophylaxis Regimen Total Risk Factor Score Risk Level Prophylaxis Regimen 0-1 Low Early ambulation 2 Moderate Order ONE of the following: *Sequential Compression Device (SCD) *Heparin 5000 units SQ BID 3-4 Higher Order ONE of the following medications: *Heparin 5000 units SQ TID *Enoxaparin/Lovenox 40 mg SQ daily (WT < 150 kg, CrCl > 30 mL/min) *Enoxaparin/Lovenox 30 mg SQ daily (WT < 150 kg, CrCl > 10-29 mL/min) *Enoxaparin/Lovenox 30 mg SQ BID (WT < 150 kg, CrCl > 30 mL/min) AND/OR *Sequential Compression Device (SCD) 5 or more Highest Order ONE of the following medications: *Heparin 5000 units SQ TID (Preferred with Epidurals) *Enoxaparin/Lovenox 40 mg SQ daily (WT < 150 kg, CrCl > 30 mL/min) *Enoxaparin/Lovenox 30 mg SQ daily (WT < 150 kg, CrCl > 10-29 mL/min) *Enoxaparin/Lovenox 30 mg SQ BID (WT < 150 kg, CrCl > 30 mL/min) AND *Sequential Compression Device (SCD) Assessment and Plan Assessment and Plan Atrial fibrillation -Esmolol drip for rate control -Continue home meds -Metoprolol -Digoxin -Tikosyn -Coumadin per pharmacy Congestive heart failure -Metoprolol -Torsemide Hypertension -Metoprolol Acute kidney injury -Dehydration -Hold diuretic -Gentle IV hydration -Monitor trend of creatinine and electrolyte DVT GI prophylaxis -Kiran's and SCDs -Subcu heparin -Pepcid Critical Care: The total critical care time was 35 minutes. Time to perform other separately billable procedures was not included in the critical care time. Pankaj Tsai MD Apr 21, 2018 03:02
[2018-04-21] MEDS: CHLORHEXIDINE GLUCONATE 2 % 1 PACK (2 CLOTHS) TOP SCH (03:13)
[2018-04-21] MEDS ORDERED: ALBUMIN 5% INJ 500 ML IV ONE (05:15)
[2018-04-21] MEDS ORDERED: SODIUM CHLOR 0.9% 1000 ML INJ 1,000 ML IV ONE (05:15)
[2018-04-21] MEDS: HEPARIN SODIUM - SQ 10,000 UNITS/ML VIAL SQ SCH ×3 (05:27→21:23)
[2018-04-21] MEDS ORDERED: POTASSIUM CHLORIDE 25 MEQ EFFERVESCENT TAB PO PRN (07:00)
[2018-04-21] MEDS ORDERED: POTASSIUM PHOSPHATE INJ 30 MMOL in SODIUM CHLOR 0.9% 250 ML INJ 250 ML IV PRN (07:00)
[2018-04-21] MEDS ORDERED: POTASSIUM PHOSPHATE MONOBASIC 500 MG TAB PO PRN (07:00)
[2018-04-21] MEDS ORDERED: MAGNESIUM SULFATE INJ 2 GM in SODIUM CHLORIDE 0.9% INJ 96 ML IV PRN (07:00)
[2018-04-21] MEDS ORDERED: SODIUM PHOSPHATE INJ 30 MMOL in SODIUM CHLOR 0.9% 250 ML INJ 240 ML IV PRN (07:00)
[2018-04-21] MEDS ORDERED: POTASSIUM CHLOR 40 MEQ PREMIX 100 ML IV PRN ×2 (07:00)
[2018-04-21] MEDS ORDERED: POTASSIUM PHOSPHATE MONOBASIC 500 MG TAB PO/TUBE PRN (07:00)
[2018-04-21] MEDS ORDERED: MAGNESIUM SULFATE INJ 4 GM in SODIUM CHLORIDE 0.9% INJ 92 ML IV PRN (07:00)
[2018-04-21] MEDS ORDERED: MAGNESIUM OXIDE 400 MG TAB PO PRN (07:00)
[2018-04-21] MEDS ORDERED: POTASSIUM CHLOR 20 MEQ PREMIX 100 ML IV PRN ×2 (07:00)
[2018-04-21] MEDS: FLUTICASONE PROPIONATE INH SCH (09:00)
[2018-04-21] MEDS: MULTIVITAMIN-OPHTHALMIC 1 TAB PO SCH (09:00)
[2018-04-21] MEDS ORDERED: METOPROLOL TARTRATE 50 MG TAB PO SCH (09:00)
[2018-04-21] MEDS: FAMOTIDINE 20 MG TAB PO SCH ×2 (09:14→21:22)
[2018-04-21] MEDS: DIGOXIN 0.125 MG TAB PO SCH (09:14)
[2018-04-21] MEDS: SPIRONOLACTONE 25 MG TAB PO SCH (09:14)
[2018-04-21] MEDS: DOCUSATE SODIUM 50 MG/SENNA 8.6 MG TAB PO SCH ×2 (09:14→21:00)
[2018-04-21] MEDS: SODIUM CHLORIDE 0.9% FLUSH 10 ML FLUSH IV FLUSH SCH ×2 (09:15→21:00)
[2018-04-21] MEDS: TORSEMIDE 20 MG TAB PO SCH (09:15)
[2018-04-21] MEDS: DOFETILIDE 250 MCG CAP PO SCH ×2 (09:15→21:23)
[2018-04-21] MEDS: POTASSIUM CHLORIDE 20 MEQ CONTROLLED RELEASE TAB PO SCH ×4 (09:15→21:23)
--- NOTE | 2018-04-21 14:27 | EKG ---
Date Performed: 04/21/2018 Time Performed: 09:09:41 PTAGE: 87 years EKG: ELECTRONIC ATRIAL PACEMAKER ELECTRONIC VENTRICULAR PACEMAKER ABNORMAL RHYTHM ECG PREVIOUS TRACING : 04/21/2018 03.59 Since the previous tracing, no significant change noted DOCTOR: Andrea Avery Interpretating Date/Time 04/21/2018 14:25:23
--- NOTE | 2018-04-21 14:31 | EKG ---
Date Performed: 04/21/2018 Time Performed: 03:59:38 PTAGE: 87 years EKG: DUAL-CHAMBER PACEMAKER RHYTHM Abnormal ECG NO PREVIOUS TRACING DOCTOR: Andrea Avery Interpretating Date/Time 04/21/2018 14:29:39
--- NOTE | 2018-04-21 14:37 | EKG ---
Date Performed: 04/20/2018 Time Performed: 20:29:49 PTAGE: 87 years EKG: ELECTRONIC ATRIAL PACEMAKER ELECTRONIC VENTRICULAR PACEMAKER ABNORMAL RHYTHM ECG INTERPRETA TION BASED ON A DEFAULT AGE OF 40 YEARS PREVIOUS TRACING : 04/18/2018 20.01 Since the previous tracing, no significant change not ed DOCTOR: Andrea Avery Interpretating Date/Time 04/21/2018 14:35:33
[2018-04-21] MEDS ORDERED: WARFARIN SOD 4 MG TAB PO SCH (16:00)
--- NOTE | 2018-04-21 16:06 | MB ---
cc: Devon Shultz DO DATE: 04/21/2018 REASON FOR CONSULTATION: Atrial fibrillation, hypotension. HISTORY OF PRESENT ILLNESS: Karis Howell is a pleasant 87-year-old female who sees my partner, Dr. Pichardo, in the office and presented to [facility] on 04/20/2018 due to atrial fibrillation and hypotension. She was seen by the visiting nurse yesterday who called me and stated that her blood pressure was 90/40 and 90/50 with heart rates mostly around 100, but occasionally higher than this. I suggested that she come to the hospital to be further evaluated. On arrival, she was found to be in atrial fibrillation with rapid ventricular response and started on an esmolol drip. Around 4:00 a.m. this morning, she converted to sinus rhythm and since then, heart rates have been in the 60s-70s and blood pressures have been much better at around 120/60. She states that yesterday when she was hypotensive, her [id number] told her that she was somewhat lethargic and confused. She denied chest pain, shortness of breath or palpitations during those episodes. In seeing her, she states that she feels well with no complaints at this time. PAST MEDICAL HISTORY: 1. Chronic congestive heart failure. 2. Atrial fibrillation. 3. Hypertension. PAST SURGICAL HISTORY: 1. Aortic valve replacement with a mechanical valve, on chronic anticoagulation with Coumadin (patient believes this was done around 20 years ago). 2. AICD placement for cardiomyopathy. 3. Appendectomy. 4. x 2. 5. Fracture of left tibia and fibula, status post repair (02/2016). 6. Left hip fracture with left hip intramedullary nail placement (06/09/2016). ALLERGIES: 1. ANTHONY INHIBITORS. 2. PENICILLIN. MEDICATIONS: 1. Ceftin 500 mg b.i.d. 2. Coumadin 4 mg daily. 3. Tikosyn 500 mcg b.i.d. 4. Digoxin 0.125 mg daily. 5. Metoprolol tartrate 50 mg b.i.d. 6. Spironolactone 25 mg daily. 7. Pierce 5/325 every 6 hours as needed for pain. 8. Potassium 20 mEq q.i.d. 9. Furosemide 20 mg daily. FAMILY HISTORY: Mother in her 90s of old age, but did have a history of hypertension. Father at 68 secondary to congestive heart failure. SOCIAL HISTORY: The patient lives at home with her [id number]. Rarely drinks alcohol. Previously smoked, but quit greater than 40 years ago. Denies drug abuse. REVIEW OF SYSTEMS: Fourteen systems were reviewed including osteopathic. Pertinent positives and negatives above, otherwise negative. PHYSICAL EXAMINATION: VITAL SIGNS: Temperature 97.6, heart rate 69, blood pressure 120/60, respirations 12, pulse oximetry 100 percent on room air. GENERAL: The patient appears well, in no acute distress, alert, awake and oriented x 3. HEENT: Extraocular muscles intact. Mucous membranes moist. NECK: Supple. No JVD at 45 degrees. No carotid bruits heard bilaterally. Carotid upstroke is brisk in nature. HEART: Regular rate and rhythm. Positive for and second heart sounds with a I/ holosystolic murmur noted at the apex. LUNGS: Clear to auscultation bilaterally. No wheezes, rales or rhonchi. ABDOMEN: Soft, nontender and nondistended. No organomegaly noted. EXTREMITIES: Show no clubbing, cyanosis or edema. Femoral distal pulses intact bilaterally. NEUROLOGIC: No focal deficits. SKIN: Warm, dry and intact. OSTEOPATHIC: Mild kyphoscoliosis. No lordosis or paraspinal tender points. LABORATORY DATA: Hemoglobin 11.7, hematocrit 35.8, platelets 259. INR is 3.5, potassium 4.6, BUN 29, creatinine 2.06. Troponin negative x 2. Electrocardiogram (04/21/2018 at 0909) AV paced. IMPRESSION: 1. Atrial fibrillation with rapid ventricular response, currently atrioventricular paced with occasional sinus rhythm. 2. Supratherapeutic INR. 3. Acute kidney injury. 4. Chronic congestive heart failure. 5. Previous hypotension with atrial fibrillation with rapid ventricular response. 6. History of mechanical aortic valve replacement. 7. Known cardiomyopathy with implantable cardioverter-defibrillator placement. RECOMMENDATIONS: 1. Ms. Howell presented, as she was noted to have atrial fibrillation with rapid ventricular response, as well as hypotension. Since that time, she has converted back to sinus rhythm with AV pacing and blood pressure is much better. 2. She was supratherapeutic on her INR, and this may be due to the antibiotic she was given for what was believed to be a UTI. 3. She will continue on Coumadin for her mechanical aortic valve. 4. She will continue on her torsemide, spironolactone and metoprolol tartrate for her cardiomyopathy. 5. She will continue on digoxin and dofetilide for now for her atrial fibrillation. 6. Dr. Pichardo will return tomorrow for further recommendations. Thank you for allowing me to see Karis Howell. If there are any questions, please do not hesitate to call. Devon Shultz DO VGP/KD , 03:38 PM , 04:04 PM
[2018-04-22] VITALS (11 sets, daily range): BP systolic 107–128; BP diastolic 53–75; PULSE 69–130; RESP 14–23; TEMP 97.6–98.2; O2SAT 94–100
[2018-04-22] MEDS: CHLORHEXIDINE GLUCONATE 2 % 1 PACK (2 CLOTHS) TOP SCH (04:00)
[2018-04-22 04:27] LABS: BASOPHIL # 0.1 TH/MM3 (0-0.2); BASOPHIL % 3.2 % (0.0-2.0); EOSINOPHIL # 0.2 TH/MM3 (0-0.4); EOSINOPHIL % 7.2 % (0.0-4.0); HEMATOCRIT 33.5 % (35.0-46.0); LYMPH % 17.7 % (9.0-44.0); LYMPHOCYTE # 0.6 TH/MM3 (1.0-4.8); MEAN CELL VOLUME 95.4 FL (80.0-100.0); MEAN CORPUSCULAR HEMOGLOBIN 31.2 PG (27.0-34.0); MEAN CORPUSCULAR HGB CONC 32.7 % (32.0-36.0); MEAN PLATELET VOLUME 8.4 FL (7.0-11.0); MONO % 12.1 % (0.0-8.0); MONOCYTE # 0.4 TH/MM3 (0-0.9); NEUT % 59.8 % (16.0-70.0); PLATELET COUNT 199 TH/MM3 (150-450); RED BLOOD COUNT 3.52 MIL/MM3 (4.00-5.30); RED CELL DISTRIBUTION WIDTH 17.6 % (11.6-17.2); WHITE BLOOD COUNT 3.3 TH/MM3 (4.0-11.0)
[2018-04-22 04:33] LABS: INTERNATIONAL NORMALIZED RATIO 4.5 RATIO; PROTHROMBIN TIME - PATIENT 45.2 SEC (9.8-11.6)
[2018-04-22 04:45] LABS: ALBUMIN 3.1 GM/DL (3.4-5.0); AST (GOT) 24 U/L (15-37); BICARBONATE 28.2 MEQ/L (21.0-32.0); BLOOD UREA NITROGEN 28 MG/DL (7-18); CALCIUM 8.6 MG/DL (8.5-10.1); CHLORIDE 104 MEQ/L (98-107); CREATININE 1.41 MG/DL (0.50-1.00); GLOMERULAR FILTRATION RATE 35 ML/MIN (>89); GLUCOSE,RANDOM 72 MG/DL (74-106); MAGNESIUM 2.1 MG/DL (1.5-2.5); SODIUM (NA) 141 MEQ/L (136-145)
[2018-04-22 04:46] LABS: ALT (GPT) 19 U/L (10-53); PHOSPHORUS 3.1 MG/DL (2.5-4.9)
[2018-04-22 05:00] LABS: ALKALINE PHOSPHATASE 87 U/L (45-117); DIGOXIN 0.6 NG/ML (0.8-2.0); TOTAL BILIRUBIN ADULT 1.2 MG/DL (0.2-1.0); TOTAL PROTEIN 6.7 GM/DL (6.4-8.2)
[2018-04-22] MEDS: HEPARIN SODIUM - SQ 10,000 UNITS/ML VIAL SQ SCH ×3 (06:27→21:02)
[2018-04-22] MEDS: TORSEMIDE 20 MG TAB PO SCH (08:36)
[2018-04-22] MEDS: DOCUSATE SODIUM 50 MG/SENNA 8.6 MG TAB PO SCH ×2 (08:36→21:02)
[2018-04-22] MEDS: DOFETILIDE 250 MCG CAP PO SCH ×2 (08:36→21:04)
[2018-04-22] MEDS: POTASSIUM CHLORIDE 20 MEQ CONTROLLED RELEASE TAB PO SCH ×4 (08:36→21:02)
[2018-04-22] MEDS: SPIRONOLACTONE 25 MG TAB PO SCH (08:36)
[2018-04-22] MEDS: MULTIVITAMIN-OPHTHALMIC 1 TAB PO SCH (08:36)
[2018-04-22] MEDS: FAMOTIDINE 20 MG TAB PO SCH ×2 (08:36→21:02)
[2018-04-22] MEDS: SODIUM CHLORIDE 0.9% FLUSH 10 ML FLUSH IV FLUSH SCH ×2 (08:36→21:02)
[2018-04-22] MEDS: DIGOXIN 0.125 MG TAB PO SCH (08:36)
[2018-04-22] MEDS: FLUTICASONE PROPIONATE INH SCH ×2 (09:00→21:00)
--- NOTE | 2018-04-22 09:01 | PD.CARD.PN ---
Subjective Subjective Remarks no complaints Objective Medications Current Medications Medications (Trade) Dose Ordered Sig/Suman Route Start Time Stop Time Status Last Admin (Lopressor Inj) 5 mg Q5M PRN IV PUSH 04/20/18 22:30 04/21/18 00:00 (Lanoxin) 0.125 mg DAILY PO 04/21/18 09:00 04/22/18 08:36 (Tikosyn) 500 mcg BID PO 04/21/18 09:00 04/22/18 08:36 ([place] 5-325 Mg) 1 tab Q6H PRN PO 04/21/18 03:00 (Lopressor) 50 mg BID PO 04/21/18 09:00 Future Hold (Ocuvite) 1 tab DAILY PO 04/21/18 09:00 04/22/18 08:36 (KCl) 20 meq QID PO 04/21/18 09:00 04/22/18 08:36 (Aldactone) 25 mg DAILY PO 04/21/18 09:00 04/22/18 08:36 (Demadex) 20 mg DAILY PO 04/21/18 09:00 04/22/18 08:36 (Coumadin) 4 mg DAILY@1600 PO 04/21/18 16:00 04/21/18 16:10 Patient Own Medication PT OWN MED: Fluticas... BID INH 04/21/18 09:00 Esmolol HCl/ Sodium Chloride 250 ml @ 18.6 mls/hr TITRATE PRN IV 04/21/18 03:00 (NS Flush) 2 ml UNSCH PRN IV FLUSH 04/21/18 03:00 (NS Flush) 2 ml BID IV FLUSH 04/21/18 09:00 04/22/18 08:36 (Tylenol) 650 mg Q6H PRN PO 04/21/18 03:00 04/21/18 19:01 (Pepcid) 20 mg Q12HR PO 04/21/18 09:00 04/22/18 08:36 (Zofran Odt) 4 mg Q6H PRN PO 04/21/18 03:00 (Restoril) 15 mg HS PRN PO 04/21/18 03:00 (Duoneb Neb) 1 ampule Q2HR NEB PRN INH 04/21/18 03:00 (Heparin Inj) 5,000 units Q8H SQ 04/21/18 06:00 04/22/18 06:27 ([facility]) 1 Q361D XX 04/21/18 03:00 04/21/18 03:00 (Chlorhexidine 2% Cloth) 3 pack Taper DAILY@04 TOP 04/21/18 04:00 04/17/19 03:59 04/21/18 03:13 (Chlorhexidine 2% Cloth) 3 pack UNSCH PRN TOP 04/21/18 03:00 (Rhea-Colace) 1 tab BID PO 04/21/18 09:00 04/22/18 08:36 (Milk Of Magnesia Liq) 30 ml Q12H PRN PO 04/21/18 03:00 (Senokot) 17.2 mg Q12H PRN PO 04/21/18 03:00 (Dulcolax Supp) 10 mg DAILY PRN RECTAL 04/21/18 03:00 (Lactulose Liq) 30 ml DAILY PRN PO 04/21/18 03:00 Potassium Chloride 100 ml @ 50 mls/hr Q2H PRN IV 04/21/18 07:00 Potassium Chloride 100 ml @ 50 mls/hr Q2H PRN IV 04/21/18 07:00 (K-Lyte Cl Eff) 50 meq UNSCH PRN PO 04/21/18 07:00 Potassium Chloride 100 ml @ 25 mls/hr UNSCH PRN IV 04/21/18 07:00 Potassium Chloride 100 ml @ 50 mls/hr Q2H PRN IV 04/21/18 07:00 Magnesium Sulfate 4 gm/Sodium Chloride 100 ml @ 50 mls/hr UNSCH PRN IV 04/21/18 07:00 (Mag-Ox) 800 mg UNSCH PRN PO 04/21/18 07:00 Magnesium Sulfate 2 gm/Sodium Chloride 100 ml @ 50 mls/hr UNSCH PRN IV 04/21/18 07:00 (K-Phos) 2,000 mg Q4H PRN PO 04/21/18 07:00 Sodium Phosphate 30 mmol/Sodium Chloride 250 ml @ 42 mls/hr UNSCH PRN IV 04/21/18 07:00 (K-Phos) 2,000 mg UNSCH PRN PO/TUBE 04/21/18 07:00 Potassium Phosphate 30 mmol/ Sodium Chloride 260 ml @ 42 mls/hr UNSCH PRN IV 04/21/18 07:00 Vital Signs / I&O Vital Signs Date Time Temp Pulse Resp B/P (MAP) Pulse Ox O2 Delivery O2 Flow Rate FiO2 04/22/18 07:00 98 Room Air 04/22/18 06:00 69 04/22/18 04:00 97.6 69 14 128/58 (81) 94 04/22/18 04:00 69 04/22/18 02:00 69 04/22/18 00:00 69 04/21/18 22:00 69 04/21/18 20:00 96 Room Air 04/21/18 20:00 98.0 69 20 98/49 (65) 98 04/21/18 20:00 69 04/21/18 18:00 69 04/21/18 16:00 69 04/21/18 16:00 97.6 69 21 116/56 (76) 99 04/21/18 14:00 69 04/21/18 12:00 69 04/21/18 12:00 97.9 69 17 107/55 (72) 100 04/21/18 10:00 69 I/O 04/21/18 04/21/18 04/21/18 04/22/18 04/22/18 04/22/18 07:00 15:00 23:00 07:00 15:00 23:00 Intake Total 2053 ml 609 ml 720 ml 150 ml Output Total 650 ml Balance 2053 ml 609 ml 720 ml -500 ml Intake Oral 720 ml 150 ml IV Total 2053 ml 609 ml Output Urine Total 650 ml # Voids 1 3 # Bowel Movements 2 Physical Exam Alert neck no JVD chest clear CV nl S1, click S2, 1/6 MR 1+ edema Laboratory Laboratory Tests Test 04/21/18 13:47 04/22/18 03:59 Troponin I 0.04 NG/ML White Blood Count 3.3 TH/MM3 Red Blood Count 3.52 MIL/MM3 Hemoglobin 11.0 GM/DL Hematocrit 33.5 % Mean Corpuscular Volume 95.4 FL Mean Corpuscular Hemoglobin 31.2 PG Mean Corpuscular Hemoglobin Concent 32.7 % Red Cell Distribution Width 17.6 % Platelet Count 199 TH/MM3 Mean Platelet Volume 8.4 FL Neutrophils (%) (Auto) 59.8 % Lymphocytes (%) (Auto) 17.7 % Monocytes (%) (Auto) 12.1 % Eosinophils (%) (Auto) 7.2 % Basophils (%) (Auto) 3.2 % Neutrophils # (Auto) 2.0 TH/MM3 Lymphocytes # (Auto) 0.6 TH/MM3 Monocytes # (Auto) 0.4 TH/MM3 Eosinophils # (Auto) 0.2 TH/MM3 Basophils # (Auto) 0.1 TH/MM3 CBC Comment DIFF FINAL Differential Comment Prothrombin Time 45.2 SEC Prothromb Time International Ratio 4.5 RATIO Activated Partial Thromboplast Time 58.5 SEC Blood Urea Nitrogen 28 MG/DL Creatinine 1.41 MG/DL Random Glucose 72 MG/DL Total Protein 6.7 GM/DL Albumin 3.1 GM/DL Calcium Level 8.6 MG/DL Phosphorus Level 3.1 MG/DL Magnesium Level 2.1 MG/DL Alkaline Phosphatase 87 U/L Aspartate Amino Transf (AST/SGOT) 24 U/L Alanine Aminotransferase (ALT/SGPT) 19 U/L Total Bilirubin 1.2 MG/DL Sodium Level 141 MEQ/L Potassium Level 4.8 MEQ/L Chloride Level 104 MEQ/L Carbon Dioxide Level 28.2 MEQ/L Anion Gap 9 MEQ/L Estimat Glomerular Filtration Rate 35 ML/MIN Digoxin Level 0.6 NG/ML Assessment and Plan Problem List: (1) Cardiomyopathy ICD Codes: I42.9 - Cardiomyopathy, unspecified Permanent Comment: Non-ischemic Last Edited By: Baltazar Pichardo MD on Apr 22, 2018 09:00 (2) AICD (automatic cardioverter/defibrillator) present ICD Codes: Z95.810 - Presence of automatic (implantable) cardiac defibrillator Status: Chronic (3) S/P AVR ICD Codes: Z95.2 - Presence of prosthetic heart valve Status: Chronic Permanent Comment: [facility] mechanical bileaflet Last Edited By: Baltazar Pichardo MD on Apr 22, 2018 09:00 (4) Paroxysmal atrial fibrillation ICD Codes: I48.0 - Paroxysmal atrial fibrillation Status: Chronic Plan: Consult Dr. Woodard (5) CHF (congestive heart failure) ICD Codes: I50.9 - Heart failure, unspecified Status: Chronic Plan: stable at present Problem Qualifiers (1) CHF (congestive heart failure): Qualified Codes: I50.22 - Chronic systolic (congestive) heart failure Baltazar Pichardo MD Apr 22, 2018 09:01
--- NOTE | 2018-04-22 09:05 | HHI.PR ---
Subjective Remarks Patient reports she is feeling okay today. No chest pain or shortness of breath. V pacing overnight. Objective Vitals Vital Signs Date Time Temp Pulse Resp B/P (MAP) Pulse Ox O2 Delivery O2 Flow Rate FiO2 04/22/18 07:00 98 Room Air 04/22/18 06:00 69 04/22/18 04:00 97.6 69 14 128/58 (81) 94 04/22/18 04:00 69 04/22/18 02:00 69 04/22/18 00:00 69 04/21/18 22:00 69 04/21/18 20:00 96 Room Air 04/21/18 20:00 98.0 69 20 98/49 (65) 98 04/21/18 20:00 69 04/21/18 18:00 69 04/21/18 16:00 69 04/21/18 16:00 97.6 69 21 116/56 (76) 99 04/21/18 14:00 69 04/21/18 12:00 69 04/21/18 12:00 97.9 69 17 107/55 (72) 100 04/21/18 10:00 69 I/O 04/21/18 04/21/18 04/21/18 04/22/18 04/22/18 04/22/18 07:00 15:00 23:00 07:00 15:00 23:00 Intake Total 2053 ml 609 ml 720 ml 150 ml Output Total 650 ml Balance 2053 ml 609 ml 720 ml -500 ml Intake Oral 720 ml 150 ml IV Total 2053 ml 609 ml Output Urine Total 650 ml # Voids 1 3 # Bowel Movements 2 Result Diagram: 04/22/18 0359 04/22/18 0359 Objective Remarks GENERAL: Elderly female, in no apparent distress. CARDIOVASCULAR: Normal rate and regular rhythm without murmurs, gallops, or rubs. RESPIRATORY: Good respiratory efforts. Breath sounds equal and clear to auscultation bilaterally. GASTROINTESTINAL: Abdomen soft, non-tender, non-distended. Normal active bowel sounds MUSCULOSKELETAL: Extremities without cyanosis, or edema. NEURO: Alert & Oriented x4 to person, place, time, situation. Moves all ext x4. Apparent mild dementia PSYCH: Appropriate mood and affect. A/P Problem List: (1) Atrial fibrillation, persistent ICD Code: I48.1 - Persistent atrial fibrillation Plan: Appreciate cardiology following. Status post esmolol drip. Law Enforcement Director, Dr. Woodard has been consulted Continue metoprolol, digoxin, and Tikosyn, continue warfarin (2) Cardiomyopathy ICD Code: I42.9 - Cardiomyopathy, unspecified Plan: Continue home dose medications. Metoprolol and torsemide. Cardiology following. Permanent Comment: Non-ischemic Last Edited By: Baltazar Pichardo MD on Apr 22, 2018 09:00 (3) AICD (automatic cardioverter/defibrillator) present ICD Code: Z95.810 - Presence of automatic (implantable) cardiac defibrillator Status: Chronic (4) S/P AVR ICD Code: Z95.2 - Presence of prosthetic heart valve Status: Chronic Plan: Continue warfarin. Permanent Comment: [facility] mechanical bileaflet Last Edited By: Baltazar Pichardo MD on Apr 22, 2018 09:00 (5) CHAO (acute kidney injury) ICD Code: N17.9 - Acute kidney failure, unspecified Plan: Likely secondary to A. fib and dehydration. Much improved. Continue to monitor. Avoid nephrotoxins. Discharge Planning Stable for transfer to [facility]. Jose C Cueto MD Apr 22, 2018 09:05
[2018-04-22] MEDS: METOPROLOL TARTRATE 5 MG/5 ML VIAL IV PUSH PRN (23:22)
[2018-04-23] VITALS (8 sets, daily range): BP systolic 97–120; BP diastolic 52–66; PULSE 69–116; RESP 17–22; TEMP 97.8–98.2; O2SAT 83–100
[2018-04-23] MEDS: CHLORHEXIDINE GLUCONATE 2 % 1 PACK (2 CLOTHS) TOP SCH (02:31)
[2018-04-23] MEDS: HEPARIN SODIUM - SQ 10,000 UNITS/ML VIAL SQ SCH ×3 (05:34→21:25)
[2018-04-23 06:19] LABS: HEMATOCRIT 33.1 % (35.0-46.0); MEAN CELL VOLUME 94.8 FL (80.0-100.0); MEAN CORPUSCULAR HEMOGLOBIN 31.4 PG (27.0-34.0); MEAN CORPUSCULAR HGB CONC 33.1 % (32.0-36.0); MEAN PLATELET VOLUME 8.6 FL (7.0-11.0); PLATELET COUNT 202 TH/MM3 (150-450); RED CELL DISTRIBUTION WIDTH 17.7 % (11.6-17.2); WHITE BLOOD COUNT 5.1 TH/MM3 (4.0-11.0)
[2018-04-23 06:26] LABS: BICARBONATE 28.2 MEQ/L (21.0-32.0); CALCIUM 8.7 MG/DL (8.5-10.1); CREATININE 1.03 MG/DL (0.50-1.00)
--- NOTE | 2018-04-23 08:54 | HHI.PR ---
Subjective Remarks Patient reprots she is feeling ok today. Heart rate went up last night and she was given a dose of IV Lopressor. Rate controlled this morning. RUBA RN. Objective Vitals Vital Signs Date Time Temp Pulse Resp B/P (MAP) Pulse Ox O2 Delivery O2 Flow Rate FiO2 04/23/18 04:00 69 04/23/18 04:00 97.8 69 21 120/66 (84) 84 04/23/18 00:00 98.0 69 17 108/62 (77) 97 04/23/18 00:00 69 04/22/18 20:00 97.7 130 18 110/57 (74) 100 04/22/18 20:00 130 04/22/18 19:00 100 Room Air 04/22/18 18:00 129 04/22/18 16:00 127 04/22/18 16:00 98.2 127 23 107/75 (86) 04/22/18 14:00 71 04/22/18 12:00 97.9 69 18 108/53 (71) 100 04/22/18 12:00 69 04/22/18 10:00 71 I/O 04/22/18 04/22/18 04/22/18 04/23/18 04/23/18 04/23/18 07:00 15:00 23:00 07:00 15:00 23:00 Intake Total 150 ml 400 ml 240 ml Output Total 650 ml 1000 ml Balance -500 ml 400 ml -760 ml Intake Oral 150 ml 400 ml 240 ml Output Urine Total 650 ml 1000 ml # Voids 5 # Bowel Movements 1 0 Result Diagram: 04/23/18 0324 04/23/18 0324 Objective Remarks GENERAL: Elderly female, in no apparent distress. CARDIOVASCULAR: Normal rate and regular rhythm without murmurs, gallops, or rubs. RESPIRATORY: Good respiratory efforts. Breath sounds equal and clear to auscultation bilaterally. GASTROINTESTINAL: Abdomen soft, non-tender, non-distended. Normal active bowel sounds MUSCULOSKELETAL: Extremities without cyanosis, or edema. NEURO: Alert & Oriented x4 to person, place, time, situation. Moves all ext x4. Apparent mild dementia PSYCH: Appropriate mood and affect. A/P Problem List: (1) Atrial fibrillation, persistent ICD Code: I48.1 - Persistent atrial fibrillation Plan: Appreciate cardiology following. Status post esmolol drip. Shoe Folder, Dr. Woodard has been consulted. RUBA RN. Plans for ablation. Continue metoprolol, digoxin, and Tikosyn, continue warfarin (2) Cardiomyopathy ICD Code: I42.9 - Cardiomyopathy, unspecified Plan: Continue home dose medications. Metoprolol and torsemide. Cardiology following. Permanent Comment: Non-ischemic Last Edited By: Baltazar Pichardo MD on Apr 22, 2018 09:00 (3) AICD (automatic cardioverter/defibrillator) present ICD Code: Z95.810 - Presence of automatic (implantable) cardiac defibrillator Status: Chronic (4) S/P AVR ICD Code: Z95.2 - Presence of prosthetic heart valve Status: Chronic Plan: Warfarin on hold for INR of 4.5 Repeat INR. Permanent Comment: [facility] mechanical bileaflet Last Edited By: Baltazar Pichardo MD on Apr 22, 2018 09:00 (5) CHAO (acute kidney injury) ICD Code: N17.9 - Acute kidney failure, unspecified Plan: Likely secondary to A. fib and dehydration. Much improved. Continue to monitor. Avoid nephrotoxins. Discharge Planning Stable for transfer to [facility]. Jose C Cueto MD Apr 23, 2018 08:53
[2018-04-23] MEDS: DOCUSATE SODIUM 50 MG/SENNA 8.6 MG TAB PO SCH ×2 (09:00→21:00)
[2018-04-23] MEDS: FLUTICASONE PROPIONATE INH SCH ×2 (09:00→21:00)
[2018-04-23] MEDS: DIGOXIN 0.125 MG TAB PO SCH (09:00)
[2018-04-23] MEDS: SODIUM CHLORIDE 0.9% FLUSH 10 ML FLUSH IV FLUSH SCH ×2 (09:00→21:24)
[2018-04-23] MEDS: TORSEMIDE 20 MG TAB PO SCH (09:00)
[2018-04-23] MEDS: POTASSIUM CHLORIDE 20 MEQ CONTROLLED RELEASE TAB PO SCH ×4 (09:01→21:24)
[2018-04-23] MEDS: SPIRONOLACTONE 25 MG TAB PO SCH (09:02)
[2018-04-23] MEDS: DOFETILIDE 250 MCG CAP PO SCH ×2 (09:02→21:24)
[2018-04-23] MEDS: MULTIVITAMIN-OPHTHALMIC 1 TAB PO SCH (09:02)
[2018-04-23] MEDS: FAMOTIDINE 20 MG TAB PO SCH (09:02)
[2018-04-23 11:02] LABS: INTERNATIONAL NORMALIZED RATIO 3.6 RATIO; PROTHROMBIN TIME - PATIENT 35.9 SEC (9.8-11.6)
[2018-04-23] MEDS: METOPROLOL TARTRATE 5 MG/5 ML VIAL IV PUSH PRN ×5 (14:24→19:38)
--- NOTE | 2018-04-23 17:11 | ECHRPT ---
Indication: ATRIAL FIB/FLUTTER CONCLUSIONS Moderately dilated left ventricle. Wall thickness is measured at the upper limits of normal. The left ventricular systolic function is severely reduced with an estimated ejection fraction in th e range of 20-25%. There is global left ventricular dysfunction. A pacemaker/defibrillator wire is noted. The left atrial size is aicp-pd-rveyrfmmwf dilated. The right atrial size is azvd-hv-clyyrxnufg dilated. There is a pacemaker/defibrillator wire present in the right atrial cavity. No atrial level shunt is demonstrated by color flow Doppler interrogation. The aortic root and proximal ascending aorta are not well visualized. Ectx-ux-frktyvyj mitral valve regurgitation. Mild thickening of the mitral valve leaflets. The aortic valve mechanical prosthesis is normal to two-dimensional, color flow and Doppler interrog ation. There is moderate tricuspid regurgitation. The estimated pulmonary arterial pressure is 39 mmHg. The pulmonary valve is not well visualized. A right sided pleural effusion is present. BP: 128 / 59 HR: 69 Rhythm: Atrial fibrillation, Atrial flut ter MEASUREMENTS (Male / Female) Normal Values Technical Quality:Fair 2D ECHO LV Diastolic Diameter PLAX 4.3 cm 4.2 - 5.9 / 3.9 - 5.3 cm LV Systolic Diameter PLAX 3.7 cm IVS Diastolic Thickness 1.0 cm 0.6 - 1.0 / 0.6 - 0.9 cm LVPW Diastolic Thickness 1.0 cm 0.6 - 1.0 / 0.6 - 0.9 cm LV Relative Wall Thickness 0.5 RV Internal Dim ED PLAX 2.8 cm LVOT Diameter 2.8 cm Aortic Root Diameter 4.2 cm LA Systolic Diameter LX 4.2 cm 3.0 - 4.0 / 2.7 - 3.8 cm DOPPLER AV Peak Velocity 154.0 cm/s AV Peak Gradient 9.5 mmHg AV Mean Gradient 5.7 mmHg AV Velocity Time Integral 21.2 cm LVOT Peak Velocity 48.9 cm/s LVOT Peak Gradient 1.0 mmHg LVOT Velocity Time Integral 6.2 cm AV Area Cont Eq vti 1.8 cm AV Area Cont Eq pk 2.0 cm Mitral E Point Velocity 101.6 cm/s TR Peak Velocity 266.0 cm/s TR Peak Gradient 28.3 mmHg Right Atrial Pressure 10.0 mmHg Pulmonary Artery Systolic Pressu 38.3 mmHg Right Ventricular Systolic Press 38.3 mmHg FINDINGS LEFT VENTRICLE Moderately dilated left ventricle. Wall thickness is measured at the upper limits of normal. The left ventricular systolic function is severely reduced with an estimated ejection fraction in th e range of 20-25%. There is global left ventricular dysfunction. RIGHT VENTRICLE Normal right ventricular size and systolic function. A pacemaker/defibrillator wire is noted. LEFT ATRIUM The left atrial size is jjkd-tb-umoudjgins dilated. RIGHT ATRIUM The right atrial size is tdsb-og-kgcpxkaptm dilated. There is a pacemaker/defibrillator wire present in the right atrial cavity. ATRIAL SEPTUM No atrial level shunt is demonstrated by color flow Doppler interrogation. AORTA The aortic root and proximal ascending aorta are not well visualized. MITRAL VALVE Dlnp-fu-qfahpdof mitral valve regurgitation. Mild thickening of the mitral valve leaflets. AORTIC VALVE The aortic valve mechanical prosthesis is normal to two-dimensional, color flow and Doppler interrog ation. TRICUSPID VALVE There is moderate tricuspid regurgitation. The estimated pulmonary arterial pressure is 39 mmHg. PULMONARY VALVE The pulmonary valve is not well visualized. VESSELS The inferior vena cava is normal in size. PERICARDIUM No pericardial effusion. A right sided pleural effusion is present. Durga Hsieh MD, FACC (Electronically Signed) Final Date:23 April 2018 17:10
[2018-04-24] VITALS (8 sets, daily range): BP systolic 100–133; BP diastolic 51–58; PULSE 69–119; RESP 18–23; TEMP 97.8–98.8; O2SAT 94–100
[2018-04-24] MEDS: CHLORHEXIDINE GLUCONATE 2 % 1 PACK (2 CLOTHS) TOP SCH (01:19)
[2018-04-24 05:44] LABS: BICARBONATE 29.5 MEQ/L (21.0-32.0); CREATININE 1.04 MG/DL (0.50-1.00)
[2018-04-24] MEDS: HEPARIN SODIUM - SQ 10,000 UNITS/ML VIAL SQ SCH ×3 (06:00→21:22)
[2018-04-24] MEDS: SPIRONOLACTONE 25 MG TAB PO SCH (08:26)
[2018-04-24] MEDS: DOCUSATE SODIUM 50 MG/SENNA 8.6 MG TAB PO SCH ×2 (08:26→21:22)
[2018-04-24] MEDS: DOFETILIDE 250 MCG CAP PO SCH ×2 (08:26→21:22)
[2018-04-24] MEDS: MULTIVITAMIN-OPHTHALMIC 1 TAB PO SCH (08:26)
[2018-04-24] MEDS: FAMOTIDINE 20 MG TAB PO SCH (08:26)
[2018-04-24] MEDS: POTASSIUM CHLORIDE 20 MEQ CONTROLLED RELEASE TAB PO SCH ×4 (08:26→21:22)
[2018-04-24] MEDS: SODIUM CHLORIDE 0.9% FLUSH 10 ML FLUSH IV FLUSH SCH ×2 (08:29→21:23)
[2018-04-24] MEDS: DIGOXIN 0.125 MG TAB PO SCH (08:35)
[2018-04-24] MEDS: TORSEMIDE 20 MG TAB PO SCH (11:44)
[2018-04-24] MEDS: METOPROLOL TARTRATE 5 MG/5 ML VIAL IV PUSH PRN ×3 (13:51→15:23)
[2018-04-24] MEDS: ESMOLOL DRIP INJ PREMIX 250 ML IV PRN ×2 (15:50→20:08)
--- NOTE | 2018-04-24 16:04 | HHI.PR ---
Subjective Remarks Patient resting in bed "feeling fine" Discussed with nurse No acute event overnight Objective Vitals Vital Signs Date Time Temp Pulse Resp B/P (MAP) Pulse Ox O2 Delivery O2 Flow Rate FiO2 04/24/18 15:50 121 110/57 04/24/18 08:25 98.8 04/24/18 07:00 96 Room Air 04/24/18 04:00 98.0 69 19 133/58 (83) 97 04/24/18 04:00 69 04/24/18 00:00 69 04/24/18 00:00 97.8 69 20 118/56 (76) 94 04/23/18 20:00 69 04/23/18 20:00 98.2 69 22 97/52 (67) 83 04/23/18 19:00 100 Room Air I/O 04/23/18 04/23/18 04/23/18 04/24/18 04/24/18 04/24/18 07:00 15:00 23:00 07:00 15:00 23:00 Intake Total 240 ml 0 ml Output Total 1000 ml 350 ml Balance -760 ml -350 ml Intake Oral 240 ml 0 ml Output Urine Total 1000 ml 350 ml # Bowel Movements 0 0 Result Diagram: 04/23/18 0324 04/24/18 0315 Objective Remarks GENERAL: Frail elderly female in no apparent distress. CARDIOVASCULAR: Paced rhythm RESPIRATORY: Fair air entry bilaterally. No W, R, or R GASTROINTESTINAL: Abdomen soft, non-tender, nondistended. Positive bowel sounds MUSCULOSKELETAL: Extremities without clubbing, cyanosis, or edema. Pedal pulses appreciated NEUROLOGICAL: Awake and alert. Moves all extremity. Normal speech.no focal neurological deficit A/P Problem List: (1) Atrial fibrillation, persistent ICD Code: I48.1 - Persistent atrial fibrillation (2) Cardiomyopathy ICD Code: I42.9 - Cardiomyopathy, unspecified Permanent Comment: Non-ischemic Last Edited By: Baltazar Pichardo MD on Apr 22, 2018 09:00 (3) AICD (automatic cardioverter/defibrillator) present ICD Code: Z95.810 - Presence of automatic (implantable) cardiac defibrillator Status: Chronic (4) S/P AVR ICD Code: Z95.2 - Presence of prosthetic heart valve Status: Chronic Permanent Comment: [facility] mechanical bileaflet Last Edited By: Baltazar Pichardo MD on Apr 22, 2018 09:00 (5) CHAO (acute kidney injury) ICD Code: N17.9 - Acute kidney failure, unspecified Assessment and Plan 04/24: Creatinine trending nicely down from 2.06-1.04, INR is 3 today EF 20-25%, Repeat CBC BMP in a.m., monitor temperature, blood pressure (1) Atrial fibrillation, persistent Cardiology consult, on esmolol drip, EP athletic equipment manager consultation and for ablation Continue metoprolol, digoxin, and Tikosyn, continue warfarin (2) Cardiomyopathy Non-ischemic Continue home dose medications. Metoprolol and torsemide. Cardiology following. (3) AICD (automatic cardioverter/defibrillator) present (4) S/P AVR Warfarin on hold for INR of 4.5 [facility] mechanical bileaflet (5) CHAO (acute kidney injury) Likely secondary to A. fib and dehydration. Much improved. Continue to monitor. Avoid nephrotoxins. Cirilo Rodriguez MD Apr 24, 2018 16:04
[2018-04-24] MEDS: FLUTICASONE PROPIONATE INH SCH (21:00)
[2018-04-25] VITALS (34 sets, daily range): BP systolic 87–125; BP diastolic 46–57; PULSE 68–71; RESP 14–32; TEMP 97.9–98.3; O2SAT 91–100
[2018-04-25] MEDS: ESMOLOL DRIP INJ PREMIX 250 ML IV PRN ×2 (00:08→05:29)
[2018-04-25] MEDS: CHLORHEXIDINE GLUCONATE 2 % 1 PACK (2 CLOTHS) TOP SCH (03:15)
[2018-04-25] MEDS: HEPARIN SODIUM - SQ 10,000 UNITS/ML VIAL SQ SCH ×3 (05:21→19:23)
[2018-04-25] MEDS: TORSEMIDE 20 MG TAB PO SCH (08:47)
[2018-04-25] MEDS: MULTIVITAMIN-OPHTHALMIC 1 TAB PO SCH (08:47)
[2018-04-25] MEDS: FAMOTIDINE 20 MG TAB PO SCH (08:47)
[2018-04-25] MEDS: SPIRONOLACTONE 25 MG TAB PO SCH (08:48)
[2018-04-25] MEDS: DOFETILIDE 250 MCG CAP PO SCH ×2 (08:48→21:17)
[2018-04-25] MEDS: DIGOXIN 0.125 MG TAB PO SCH (08:48)
[2018-04-25] MEDS: POTASSIUM CHLORIDE 20 MEQ CONTROLLED RELEASE TAB PO SCH ×4 (08:48→21:17)
[2018-04-25] MEDS: FLUTICASONE PROPIONATE INH SCH (08:49)
[2018-04-25] MEDS: SODIUM CHLORIDE 0.9% FLUSH 10 ML FLUSH IV FLUSH SCH ×2 (08:49→21:18)
[2018-04-25] MEDS: DOCUSATE SODIUM 50 MG/SENNA 8.6 MG TAB PO SCH ×2 (08:51→21:00)
[2018-04-25 12:32] LABS: INTERNATIONAL NORMALIZED RATIO 1.8 RATIO; PROTHROMBIN TIME - PATIENT 18.1 SEC (9.8-11.6)
--- NOTE | 2018-04-25 14:53 | HHI.PR ---
Subjective Remarks Late entry note patient seen earlier this morning around 1130 Patient resting she denied complain No fever acute event overnight Heart rate is controlled on esmolol drip still cardiology following INR was 3 yesterday, awaiting level today Objective Vitals Vital Signs Date Time Temp Pulse Resp B/P (MAP) Pulse Ox O2 Delivery O2 Flow Rate FiO2 04/25/18 14:00 70 04/25/18 12:00 69 04/25/18 12:00 98.1 69 18 116/53 (74) 100 04/25/18 11:00 69 20 120/55 (76) 100 04/25/18 10:00 69 04/25/18 10:00 69 18 109/56 (73) 99 04/25/18 09:01 71 27 122/57 (78) 96 04/25/18 09:00 69 22 95 04/25/18 09:00 69 122/57 04/25/18 08:00 98.3 69 15 99/51 (67) 92 04/25/18 08:00 69 04/25/18 08:00 69 99/51 04/25/18 07:00 95 Room Air 04/25/18 07:00 69 18 102/51 (68) 91 04/25/18 07:00 69 102/51 04/25/18 06:00 69 04/25/18 05:29 70 97/49 04/25/18 04:00 97.9 69 16 92/46 (61) 94 04/25/18 04:00 69 04/25/18 02:00 69 04/25/18 00:08 69 87/47 04/25/18 00:00 98.1 69 16 87/47 (60) 93 04/25/18 00:00 69 04/24/18 22:00 119 04/24/18 20:08 69 100/51 04/24/18 20:00 69 04/24/18 20:00 98.1 69 19 100/51 (67) 100 04/24/18 19:00 97 Room Air 04/24/18 16:00 97.8 70 18 114/57 (76) 94 04/24/18 16:00 70 04/24/18 15:50 121 110/57 I/O 04/24/18 04/24/18 04/24/18 04/25/18 04/25/18 04/25/18 07:00 15:00 23:00 07:00 15:00 23:00 Intake Total 0 ml 730 ml 740 ml Output Total 350 ml 1000 ml Balance -350 ml -270 ml 740 ml Intake Oral 0 ml 480 ml 240 ml IV Total 250 ml 500 ml Output Urine Total 350 ml 1000 ml # Voids 7 3 # Bowel Movements 0 2 0 Result Diagram: 04/23/18 0324 04/24/18 0315 Objective Remarks GENERAL: Frail elderly female in no apparent distress. CARDIOVASCULAR: Paced rhythm RESPIRATORY: Fair air entry bilaterally. No W, R, or R GASTROINTESTINAL: Abdomen soft, non-tender, nondistended. Positive bowel sounds MUSCULOSKELETAL: Extremities without clubbing, cyanosis, or edema. Pedal pulses appreciated NEUROLOGICAL: Awake and alert. Moves all extremity. Normal speech.no focal neurological deficit A/P Problem List: (1) Atrial fibrillation, persistent ICD Code: I48.1 - Persistent atrial fibrillation (2) Cardiomyopathy ICD Code: I42.9 - Cardiomyopathy, unspecified Permanent Comment: Non-ischemic Last Edited By: Baltazar Pichardo MD on Apr 22, 2018 09:00 (3) AICD (automatic cardioverter/defibrillator) present ICD Code: Z95.810 - Presence of automatic (implantable) cardiac defibrillator Status: Chronic (4) S/P AVR ICD Code: Z95.2 - Presence of prosthetic heart valve Status: Chronic Permanent Comment: [facility] mechanical bileaflet Last Edited By: Baltazar Pichardo MD on Apr 22, 2018 09:00 (5) CHAO (acute kidney injury) ICD Code: N17.9 - Acute kidney failure, unspecified Assessment and Plan 04/24: Creatinine trending nicely down from 2.06-1.04, INR is 3 today, EF 20-25% , repeat CBC BMP in a.m., monitor temperature, blood pressure 04/25: Patient on esmolol drip per cardiology, heart rate control, INR yesterday was 3, today is 1.8 will resume Coumadin, I discussed with pharmacist regarding Coumadin, DC heparin for DVT prophylaxis is no need for A/P: Atrial fibrillation, persistent Cardiology consult, on esmolol drip, EP head girls golf coach consultation and for ablation Continue metoprolol, digoxin, and Tikosyn, continue warfarin Cardiomyopathy Non-ischemic Continue home dose medications. Metoprolol and torsemide. Cardiology following. EF 20-25%, -AICD (automatic cardioverter/defibrillator) present -S/P AVR on Coumadin -Coumadin toxicity Warfarin on hold for INR of 4.5 [facility] mechanical bileaflet - CHAO (acute kidney injury) Likely secondary to A. fib and dehydration. Much improved. Continue to monitor. Avoid nephrotoxins. Cirilo Rodriguez MD Apr 25, 2018 14:53
--- NOTE | 2018-04-25 15:27 | MB ---
cc: Jeffrey Woodard MD,Devon Hood MD, DO DATE: 04/22/2018 REASON FOR CONSULTATION: Atrial fibrillation, unable to control with medication. HISTORY OF PRESENT ILLNESS: Ms. Howell is an 87-year-old female with history of atrial fibrillation with ablation years ago. The patient is on Tikosyn. Despite that, heart rate cannot be controlled and she was admitted for atrial fibrillation and fast ventricular response. Your multiple medications were initiated. Heart rate still high. I was consulted for evaluation and management. The chart was reviewed. The patient was evaluated. ALLERGIES: MULTIPLE. BENAZEPRIL, CAPTOPRIL, ENALAPRIL, FOSINOPRIL, PRINIVIL, PENICILLIN, QUINAPRIL. SOCIAL HISTORY: Negative for smoking and drinking. FAMILY HISTORY: Noncontributory to her current medical condition. MEDICATIONS: She is on potassium, magnesium. She is on [place], digoxin 0.125 mg per day, Tikosyn 500 mg twice a day, famotidine, metoprolol 50 mg twice per day, and Coumadin as directed. REVIEW OF SYSTEMS: Currently the patient refers no chest pain, no chest discomfort. Shortness of breath and palpitations, but no fever. PHYSICAL EXAMINATION: GENERAL: Alert, fully oriented. VITAL SIGNS: Blood pressure 110/57, pulse 130, respiratory rate 20. LUNGS: Ventilated. CARDIOVASCULAR: S1, S2, tachycardic. ABDOMEN: Soft. EXTREMITIES: No edema. ELECTROCARDIOGRAM: Episode of supraventricular tachyarrhythmia with fast ventricular response. LABORATORY DATA: Hemoglobin 11, white blood cell count 3.3. Potassium is 4.8, creatinine 1.2. INR is 4.5. ASSESSMENT AND RECOMMENDATIONS: Mrs. Howell' heart rate is very high. Around a year or 2 ago, I had a conversation with her about the need for atrioventricular node modification. She already has a defibrillator. At that time, she refused. This conversation was brought up again today. She is still thinking about it. I discussed the case with Dr. Pichardo who is her primary patrol man. The risks, the nature and the benefits of the procedure were clearly stated to her. The risks include cardiac arrest, infection, need for open heart surgery and even . She understands and tomorrow morning we will talk again and if she wants to proceed, the procedure will be scheduled. MD LILIANA Li , 02:47 PM , 03:24 PM
[2018-04-25] MEDS: WARFARIN SOD 3 MG TAB PO SCH (16:00)
--- NOTE | 2018-04-25 18:17 | HHI.PR ---
Subjective Remarks Tired Objective Vital Signs Date Time Temp Pulse Resp B/P (MAP) Pulse Ox O2 Delivery O2 Flow Rate FiO2 04/25/18 18:00 69 04/25/18 16:00 69 04/25/18 14:00 70 04/25/18 12:00 69 04/25/18 12:00 98.1 69 18 116/53 (74) 100 04/25/18 11:00 69 20 120/55 (76) 100 04/25/18 10:00 69 04/25/18 10:00 69 18 109/56 (73) 99 04/25/18 09:01 71 27 122/57 (78) 96 04/25/18 09:00 69 22 95 04/25/18 09:00 69 122/57 04/25/18 08:00 98.3 69 15 99/51 (67) 92 04/25/18 08:00 69 04/25/18 08:00 69 99/51 04/25/18 07:00 95 Room Air 04/25/18 07:00 69 18 102/51 (68) 91 04/25/18 07:00 69 102/51 04/25/18 06:00 69 04/25/18 05:29 70 97/49 04/25/18 04:00 97.9 69 16 92/46 (61) 94 04/25/18 04:00 69 04/25/18 02:00 69 04/25/18 00:08 69 87/47 04/25/18 00:00 98.1 69 16 87/47 (60) 93 04/25/18 00:00 69 04/24/18 22:00 119 04/24/18 20:08 69 100/51 04/24/18 20:00 69 04/24/18 20:00 98.1 69 19 100/51 (67) 100 04/24/18 19:00 97 Room Air I/O 04/24/18 04/24/18 04/24/18 04/25/18 04/25/18 04/25/18 07:00 15:00 23:00 07:00 15:00 23:00 Intake Total 0 ml 730 ml 740 ml Output Total 350 ml 1000 ml Balance -350 ml -270 ml 740 ml Intake Oral 0 ml 480 ml 240 ml IV Total 250 ml 500 ml Output Urine Total 350 ml 1000 ml # Voids 7 3 # Bowel Movements 0 2 0 Result Diagram: 04/23/18 0324 04/24/18 0315 Imaging Alert, fully oriented Lungs: ventilated Heart: s1, S2 regular, no gallop abdomen: soft, no mass Ext: no edema Vital Signs Date Time Temp Pulse Resp B/P (MAP) Pulse Ox O2 Delivery O2 Flow Rate FiO2 04/25/18 18:00 69 04/25/18 16:00 69 04/25/18 14:00 70 04/25/18 12:00 69 04/25/18 12:00 98.1 69 18 116/53 (74) 100 04/25/18 11:00 69 20 120/55 (76) 100 04/25/18 10:00 69 04/25/18 10:00 69 18 109/56 (73) 99 04/25/18 09:01 71 27 122/57 (78) 96 04/25/18 09:00 69 22 95 04/25/18 09:00 69 122/57 04/25/18 08:00 98.3 69 15 99/51 (67) 92 04/25/18 08:00 69 04/25/18 08:00 69 99/51 04/25/18 07:00 95 Room Air 04/25/18 07:00 69 18 102/51 (68) 91 04/25/18 07:00 69 102/51 04/25/18 06:00 69 04/25/18 05:29 70 97/49 04/25/18 04:00 97.9 69 16 92/46 (61) 94 04/25/18 04:00 69 04/25/18 02:00 69 04/25/18 00:08 69 87/47 04/25/18 00:00 98.1 69 16 87/47 (60) 93 04/25/18 00:00 69 04/24/18 22:00 119 04/24/18 20:08 69 100/51 04/24/18 20:00 69 04/24/18 20:00 98.1 69 19 100/51 (67) 100 04/24/18 19:00 97 Room Air Current Medications Medications (Trade) Dose Ordered Sig/Suman Route Start Time Stop Time Status Last Admin (Lopressor Inj) 5 mg Q5M PRN IV PUSH 04/20/18 22:30 04/24/18 15:23 (Lanoxin) 0.125 mg DAILY PO 04/21/18 09:00 04/24/18 08:35 (Tikosyn) 500 mcg BID PO 04/21/18 09:00 04/25/18 08:48 ([place] 5-325 Mg) 1 tab Q6H PRN PO 04/21/18 03:00 (Lopressor) 50 mg BID PO 04/21/18 09:00 Future Hold (Ocuvite) 1 tab DAILY PO 04/21/18 09:00 04/25/18 08:47 (KCl) 20 meq QID PO 04/21/18 09:00 04/25/18 08:48 (Aldactone) 25 mg DAILY PO 04/21/18 09:00 04/25/18 08:48 (Demadex) 20 mg DAILY PO 04/21/18 09:00 04/25/18 08:47 Patient Own Medication PT OWN MED: Fluticas... BID INH 04/21/18 09:00 Esmolol HCl/ Sodium Chloride 250 ml @ 18.6 mls/hr TITRATE PRN IV 04/21/18 03:00 04/25/18 05:29 (NS Flush) 2 ml UNSCH PRN IV FLUSH 04/21/18 03:00 (NS Flush) 2 ml BID IV FLUSH 04/21/18 09:00 04/25/18 08:49 (Tylenol) 650 mg Q6H PRN PO 04/21/18 03:00 04/21/18 19:01 (Zofran Odt) 4 mg Q6H PRN PO 04/21/18 03:00 (Restoril) 15 mg HS PRN PO 04/21/18 03:00 (Duoneb Neb) 1 ampule Q2HR NEB PRN INH 04/21/18 03:00 (Heparin Inj) 5,000 units Q8H SQ 04/21/18 06:00 04/25/18 05:21 ([facility] [place] [facility]) 1 Q361D XX 04/21/18 03:00 04/21/18 03:00 (Chlorhexidine 2% Cloth) 3 pack Taper DAILY@04 TOP 04/21/18 04:00 04/17/19 03:59 04/25/18 03:15 (Chlorhexidine 2% Cloth) 3 pack UNSCH PRN TOP 04/21/18 03:00 (Rhea-Colace) 1 tab BID PO 04/21/18 09:00 04/24/18 21:22 (Milk Of Magnesia Liq) 30 ml Q12H PRN PO 04/21/18 03:00 (Senokot) 17.2 mg Q12H PRN PO 04/21/18 03:00 (Dulcolax Supp) 10 mg DAILY PRN RECTAL 04/21/18 03:00 (Lactulose Liq) 30 ml DAILY PRN PO 04/21/18 03:00 Potassium Chloride 100 ml @ 50 mls/hr Q2H PRN IV 04/21/18 07:00 Potassium Chloride 100 ml @ 50 mls/hr Q2H PRN IV 04/21/18 07:00 (K-Lyte Cl Eff) 50 meq UNSCH PRN PO 04/21/18 07:00 Potassium Chloride 100 ml @ 25 mls/hr UNSCH PRN IV 04/21/18 07:00 Potassium Chloride 100 ml @ 50 mls/hr Q2H PRN IV 04/21/18 07:00 Magnesium Sulfate 4 gm/Sodium Chloride 100 ml @ 50 mls/hr UNSCH PRN IV 04/21/18 07:00 (Mag-Ox) 800 mg UNSCH PRN PO 04/21/18 07:00 Magnesium Sulfate 2 gm/Sodium Chloride 100 ml @ 50 mls/hr UNSCH PRN IV 04/21/18 07:00 (K-Phos) 2,000 mg Q4H PRN PO 04/21/18 07:00 Sodium Phosphate 30 mmol/Sodium Chloride 250 ml @ 42 mls/hr UNSCH PRN IV 04/21/18 07:00 (K-Phos) 2,000 mg UNSCH PRN PO/TUBE 04/21/18 07:00 Potassium Phosphate 30 mmol/ Sodium Chloride 260 ml @ 42 mls/hr UNSCH PRN IV 04/21/18 07:00 (Pepcid) 20 mg DAILY PO 04/23/18 09:00 04/25/18 08:47 Pharmacy Profile Note 0 ml @ 0 mls/hr UNSCH OTHER 04/25/18 15:00 (Coumadin) 3 mg DAILY@16 PO 04/25/18 16:00 Assessment and Plan Problem List: (1) Atrial fibrillation with rapid ventricular response ICD Codes: I48.91 - Unspecified atrial fibrillation; T18.128A - Food in esophagus causing other injury, initial encounter Status: Acute Plan: In sinus rhythm A pacing V sensing Doing better AV node modification was planning for today, case delayed by anesthesia. Because of recurrent episodes of afib and a tach, ablation is necessary. Will be scheduled for tomorrow (2) CHF (congestive heart failure) ICD Codes: I50.9 - Heart failure, unspecified Status: Chronic Plan: On optimal medical management some SOB reported Problem Qualifiers (1) CHF (congestive heart failure): Qualified Codes: I50.22 - Chronic systolic (congestive) heart failure Jeffrey Woodard MD Apr 25, 2018 18:17
[2018-04-26] VITALS (40 sets, daily range): BP systolic 91–131; BP diastolic 46–78; PULSE 68–125; RESP 15–25; TEMP 97.8–98.5; O2SAT 92–100
[2018-04-26] MEDS: HEPARIN SODIUM - SQ 10,000 UNITS/ML VIAL SQ SCH ×3 (06:00→22:00)
[2018-04-26 07:13] LABS: BICARBONATE 24.4 MEQ/L (21.0-32.0); CALCIUM 8.5 MG/DL (8.5-10.1); CREATININE 0.98 MG/DL (0.50-1.00)
[2018-04-26] MEDS: FLUTICASONE PROPIONATE INH SCH ×2 (09:00→21:00)
[2018-04-26] MEDS: DIGOXIN 0.125 MG TAB PO SCH (09:00)
[2018-04-26] MEDS: SODIUM CHLORIDE 0.9% FLUSH 10 ML FLUSH IV FLUSH SCH ×2 (09:00→22:02)
[2018-04-26] MEDS: DOCUSATE SODIUM 50 MG/SENNA 8.6 MG TAB PO SCH ×2 (09:00→21:00)
[2018-04-26] MEDS: FAMOTIDINE 20 MG TAB PO SCH (09:43)
[2018-04-26] MEDS: DOFETILIDE 250 MCG CAP PO SCH (09:43)
[2018-04-26] MEDS: POTASSIUM CHLORIDE 20 MEQ CONTROLLED RELEASE TAB PO SCH ×4 (09:43→21:00)
[2018-04-26] MEDS: MULTIVITAMIN-OPHTHALMIC 1 TAB PO SCH (09:43)
[2018-04-26] MEDS: TORSEMIDE 20 MG TAB PO SCH (09:44)
[2018-04-26] MEDS: SPIRONOLACTONE 25 MG TAB PO SCH (09:44)
[2018-04-26] MEDS: METOPROLOL TARTRATE 5 MG/5 ML VIAL IV PUSH PRN ×2 (10:33→11:45)
[2018-04-26 11:46] LABS: INTERNATIONAL NORMALIZED RATIO 1.5 RATIO; PROTHROMBIN TIME - PATIENT 15.3 SEC (9.8-11.6)
[2018-04-26] MEDS ORDERED: PROPOFOL 200 MG/20 ML AMP IV ONE (12:00)
[2018-04-26] MEDS ORDERED: PHENYLEPH/NS 1000 MCG/10 ML SYR IV ONE (12:00)
[2018-04-26] MEDS ORDERED: LIDOCAINE HCL 1% PF 5 ML SYRINGE OTHER ONE (12:00)
[2018-04-26] MEDS ORDERED: ONDANSETRON HCL 4 MG/2 ML VIAL IV ONE (12:00)
[2018-04-26] MEDS ORDERED: MIDAZOLAM HCL 2 MG/2 ML VIAL ONE (14:34)
[2018-04-26] MEDS ORDERED: ISOPROTERENOL INJ PREMIX 0 ML IV ONE (14:34)
[2018-04-26] MEDS ORDERED: HEPARIN SODIUM - IV 10,000 UNITS/10 ML VIAL ONE (14:34)
[2018-04-26] MEDS ORDERED: HEPARIN-NS/PF INJ 500 ML ONE (14:54)
--- NOTE | 2018-04-26 15:29 | HHI.PR ---
Subjective Remarks Seen earlier today patient is going for ablation No acute event overnight Objective Vitals Vital Signs Date Time Temp Pulse Resp B/P (MAP) Pulse Ox O2 Delivery O2 Flow Rate FiO2 04/26/18 14:00 110 04/26/18 14:00 110 22 111/78 (89) 97 04/26/18 13:00 111 25 104/56 (72) 97 04/26/18 12:00 98.0 117 19 91/54 (66) 97 04/26/18 12:00 109 04/26/18 11:00 119 20 92/57 (69) 97 04/26/18 10:00 125 04/26/18 10:00 125 20 104/55 (71) 96 04/26/18 09:00 68 24 131/56 (81) 97 04/26/18 08:00 69 04/26/18 08:00 97.8 69 16 100/50 (67) 92 04/26/18 07:00 69 24 115/56 (75) 96 04/26/18 07:00 96 Room Air 04/26/18 06:00 69 15 125/58 (80) 93 04/26/18 06:00 69 04/26/18 05:48 69 15 93 04/26/18 05:33 69 16 94 04/26/18 05:18 69 15 92 04/26/18 05:03 69 16 94 04/26/18 05:00 69 19 105/52 (69) 93 04/26/18 04:48 69 20 94 04/26/18 04:33 69 15 94 04/26/18 04:18 70 16 95 04/26/18 04:03 69 16 92 04/26/18 04:00 69 15 122/56 (78) 95 04/26/18 04:00 69 04/26/18 04:00 98.3 04/26/18 03:48 69 16 94 04/26/18 03:33 69 16 95 04/26/18 03:18 69 16 94 04/26/18 03:03 69 17 94 04/26/18 03:00 69 16 97/51 (66) 94 04/26/18 02:48 69 17 94 04/26/18 02:33 71 22 95 04/26/18 02:18 69 21 95 04/26/18 02:00 69 04/26/18 02:00 69 17 110/55 (73) 94 04/26/18 01:45 69 19 94 04/26/18 01:30 71 20 95 04/26/18 01:15 69 19 94 04/26/18 01:00 69 18 109/53 (71) 94 04/26/18 00:45 69 16 94 04/26/18 00:30 69 17 93 04/26/18 00:15 69 16 93 04/26/18 00:00 98.2 04/26/18 00:00 69 04/26/18 00:00 69 17 92/46 (61) 93 04/25/18 23:30 69 16 94 04/25/18 23:15 69 16 94 04/25/18 23:00 69 16 105/51 (69) 94 04/25/18 22:45 70 23 96 04/25/18 22:30 69 19 94 04/25/18 22:15 69 16 94 04/25/18 22:00 69 23 106/53 (70) 95 04/25/18 22:00 69 04/25/18 21:45 69 17 95 04/25/18 21:30 69 21 98 04/25/18 21:15 69 32 97 04/25/18 21:00 69 22 111/53 (72) 100 04/25/18 20:45 69 18 98 04/25/18 20:30 69 21 100 04/25/18 20:15 69 18 98 04/25/18 20:00 68 17 105/51 (69) 99 04/25/18 20:00 98.3 04/25/18 20:00 96 Room Air 04/25/18 20:00 68 04/25/18 19:45 68 19 99 04/25/18 18:00 69 04/25/18 18:00 68 17 99/49 (66) 100 04/25/18 17:01 69 19 101/50 (67) 100 04/25/18 17:00 69 20 100 04/25/18 16:00 98.1 69 24 117/56 (76) 100 04/25/18 16:00 69 I/O 04/25/18 04/25/18 04/25/18 04/26/18 04/26/18 04/26/18 07:00 15:00 23:00 07:00 15:00 23:00 Intake Total 740 ml 240 ml 200 ml Output Total 1700 ml 600 ml Balance 740 ml -1460 ml -400 ml Intake Oral 240 ml 240 ml 200 ml IV Total 500 ml Output Urine Total 1700 ml 600 ml # Voids 3 # Bowel Movements 0 0 0 Result Diagram: 04/23/18 0324 04/26/18 0449 Objective Remarks GENERAL: Frail elderly female in no apparent distress. CARDIOVASCULAR: Paced rhythm RESPIRATORY: Fair air entry bilaterally. No W, R, or R GASTROINTESTINAL: Abdomen soft, non-tender, nondistended. Positive bowel sounds MUSCULOSKELETAL: Extremities without clubbing, cyanosis, or edema. Pedal pulses appreciated NEUROLOGICAL: Awake and alert. Moves all extremity. Normal speech.no focal neurological deficit A/P Problem List: (1) Atrial fibrillation, persistent ICD Code: I48.1 - Persistent atrial fibrillation (2) Cardiomyopathy ICD Code: I42.9 - Cardiomyopathy, unspecified Permanent Comment: Non-ischemic Last Edited By: Baltazar Pichardo MD on Apr 22, 2018 09:00 (3) AICD (automatic cardioverter/defibrillator) present ICD Code: Z95.810 - Presence of automatic (implantable) cardiac defibrillator Status: Chronic (4) S/P AVR ICD Code: Z95.2 - Presence of prosthetic heart valve Status: Chronic Permanent Comment: [employer] mechanical bileaflet Last Edited By: Baltazar Pichardo MD on Apr 22, 2018 09:00 (5) CHAO (acute kidney injury) ICD Code: N17.9 - Acute kidney failure, unspecified Assessment and Plan 04/24: Creatinine trending nicely down from 2.06-1.04, INR is 3 today, EF 20-25% , repeat CBC BMP in a.m., monitor temperature, blood pressure 04/25: Patient on esmolol drip per cardiology, heart rate control, INR yesterday was 3, today is 1.8 will resume Coumadin, I discussed with pharmacist regarding Coumadin, DC heparin for DVT prophylaxis is no need for 04/26: Stable going for ablation today, monitor postprocedure, INR in a.m. today' s 1.5 A/P: Atrial fibrillation, persistent Cardiology consult, on esmolol drip, EP sterile processing technologist consultation and for ablation Continue metoprolol, digoxin, and Tikosyn, continue warfarin Cardiomyopathy Non-ischemic Continue home dose medications. Metoprolol and torsemide. Cardiology following. EF 20-25%, -AICD (automatic cardioverter/defibrillator) present -S/P AVR on Coumadin -Coumadin toxicity Warfarin on hold for INR of 4.5 [facility] [facility] mechanical bileaflet - CHAO (acute kidney injury) Likely secondary to A. fib and dehydration. Much improved. Continue to monitor. Avoid nephrotoxins. Cirilo Rodriguez MD Apr 26, 2018 15:29
[2018-04-26] MEDS: WARFARIN SOD 3 MG TAB PO SCH (16:00)
--- NOTE | 2018-04-26 16:13 | CATHPROC ---
Patient Name: KAZ MILIAN Study #: [id number] Initial MD: Jeffrey Woodard Date of : 1930 Study Date: 04/26/2018 Cardiac Catheterization Report 04/26/2018 4:23:04 PM Financial #: [id number] 1 of 9 Patient Name: KAZ MILIAN Study #: [id number] Initial MD: Jeffrey Woodard Date of : 1930 Study Date: 04/26/2018 Entire Case Report Patient Information Patient Name KAZ MILIAN Date of 1930 Age 87 years Financial # [id number] Gender F AlternateID Lab Number 2 Room Number 503 Height (in) 65.0 Height (cm) 165.1 BSA 1.72 Weight (lbs) 144.1 Weight (kg) 65.5 Patient Address/Phone Number Home Address [facility] Home Phone Number [facility] [id number] Study Information Study Number Admission Scheduled Start Study Start [id number] Apr 21 2018 1:33AM 04/26/2018 Apr 26 2018 2:42PM [facility] Electrophysiology Study Admit Source Facility Department Other [facility] - Bakery Manager Physician and Clinical Staff Initial Jeffrey Olsen Vegetable Grader Nuha Cheek,PULMONARY CARE NURSE TECH2 Other Anesthesia, CHAINSTITCH ELASTIC ATTACHER Recorder Donna Maxwell,RN Recorder Susanne Reis,TREMAYNE Scrub Chayito Parker,RT(R) TECH2 Procedures Performed Procedure Location (Site) Vessel Name Cardioversion RF Ablation Isthmus Other 04/26/2018 4:23:04 PM Financial #: [id number] 2 of 9 Patient Name: KAZ MILIAN Study #: [id number] Initial MD: Jeffrey Woodard Date of : 1930 Study Date: 04/26/2018 Equipment Time Food And Beverage Assistant Manager Description Size Mfg Part Number Used/Scraped BIOSENSE DODGE CATHETER, CELSIUS DS, 8MM, F [id number] 15:05 FR 7 Used INC. TYPE QUAD *[id number] 14:44 Mayvenn BLANKET,WARM AIR CCL * Used *[id number] 14:44 MEDLINE IND[employer] PACK, CCL CUSTOM * Used *[id number] 14:44 MEDLINE PACER SALVADOR, LIMB * 2530 *[id number] Used [id number] 14:44 [employer] MEDICAL CATHETER, JSN, QUAD FR 5 Used *[id number] 14:44 [employer] MEDICAL CATHETER, JSN, QUAD FR 5 Used *[id number] 14:44 [employer] MEDICAL CATHETER, JSN, QUAD FR 5 Used *[id number] 14:44 [employer] MEDICAL ELECTRODE KIT, TRAVON X SURFACE * Used *[id number] 14:45 [employer] MEDICAL SHEATH, EPS, FR5 FAST CATH FR 5 Used *[id number] 14:45 [employer] MEDICAL SHEATH, EPS, FR5 FAST CATH FR 5 Used *[id number] 14:45 [facility] MEDICAL SHEATH, EPS, FR6 FAST CATH FR 6 Used *[id number] 14:45 [facility] MEDICAL SHEATH, EPS, FR8 FAST CATH FR 8 Used *[id number] [facility] PAD, ELECTROSURGICAL 14:44 * [id number] *[id number] Used SURGICAL GROUNDING (BLUE) Insurance Information Insurance Payor Medicare Third Republican Third Republican Number MEDICARE A B MCRAB History: Allergies Allergy Reaction captopril lisinopril benazepril quinapril fosinopril penicillin G enalaprilat History: Risk Factors Hypertension Previous Heart Failure Yes Yes 04/26/2018 4:23:04 PM Financial #: [id number] 3 of 9 Patient Name: KAZ MILIAN Study #: [id number] Initial MD: Jeffrey Woodard Date of : 1930 Study Date: 04/26/2018 Labs Hgb (g/dl) Hct (%) RBC (MIL/MM3) WBC (l/cumm) Platelets (thousands) 11.60-17.00 35.00-51.00 4.00-5.90 4.00-11.00 150.00-450.00 11.0 33 3.5 5.1 202 Glucose (mg/dl) BUN (mg/dl) Creatinine (mg/dl) BUN:Creatinine (1:x) 74.00-106.00 7.00-18.00 0.50-1.30 10.00-20.00 70 25 0.9 27.8 Na (meq/l) K (meq/l) 136.00-145.00 3.50-5.10 136 4.7 INR (PTT:PT) 0.90-1.10 1.8 Medication Medication Total Dose (Bolus/Oral) Medication Total Dosage/Unit 1% XYLOCAINE 20 mL Medications (Bolus/Oral) Medication Time Given Dosage/Unit Administered By Reason 1% XYLOCAINE 04/26/2018 3:20:08 PM 20 mL Jeffrey Woodard 20 mL 1% XYLOCAINE given in lab by Jeffrey Woodard via Subcutaneous. Ordered by Jeffrey Woodard. 04/26/2018 4:23:04 PM Financial #: [id number] 4 of 9 Patient Name: KAZ MILIAN Study #: [id number] Initial MD: Jeffrey Woodard Date of : 1930 Study Date: 04/26/2018 Initial Case Assessment Cardiovascular HR Rhythm NIBP Chest Pain 111 af 115/56 0 Edema Present Skin color Skin Mild Normal Warm Dry Circulatory - Right Pulses Dorsalis Pedis 1 Scale (0,1,2,3,4,d) Circulatory - Left Pulses Dorsalis Pedis 1 Scale (0,1,2,3,4,d) Circulatory - Lower Extremities Color Lower Right Color Lower Left Normal Normal Neurological State Oriented to time-place- Alert Moves all extremities person Respiration - General Respiration Rate SpO2 (%) (B/min) 18 98 04/26/2018 4:23:04 PM Financial #: [id number] 5 of 9 Patient Name: KAZ MILIAN Study #: [id number] Initial MD: Jeffrey Woodard Date of : 1930 Study Date: 04/26/2018 Final Case Assessment Cardiovascular HR NIBP 80 100/58 Edema Present Skin color Skin None Normal Warm Dry Circulatory - Right Pulses Dorsalis Pedis 1 Scale (0,1,2,3,4,d) Circulatory - Left Pulses Dorsalis Pedis 1 Scale (0,1,2,3,4,d) Circulatory - Lower Extremities Color Lower Right Color Lower Left Normal Normal Neurological State Drowsy Moves all extremities Respiration - General Respiration Rate SpO2 (%) (B/min) 14 91 Chronological Log Time Study Chronological Log 14:41:47 Patient arrived via Bed. 14:41:48 Patient Name, D.O.B, / Armband Verified By R.N. 14:41:49 Consent signed by the physician and the patient and verified by the Bakery Manager staff. 14:41:50 Pre-op and post- op instructions given; patient acknowledges understanding of instructions. 14:41:50 Verbal Stimulation=2 Physical Stimulation=2 Airway=2 Respiration=2 TOTAL=8. (0=absent, 1=li mited, 2=present) 14:41:51 Anesthesia at bedside. Assumes care of patient. Cliff 14:42:22 Patient has been NPO for More than 6Hrs. 14:42:26 Skin Breakdown- R arm w ecchymosis and edema 14:42:30 Patient Warmer Placed on the Table. 04/26/2018 4:23:04 PM Financial #: [id number] Patient Name: KAZ MILIAN Study #: [id number] Initial MD: Jeffrey Woodard Date of : 1930 Study Date: 04/26/2018 14:43:00 Disposable Defibrillator Pads Placed On Patient. 14:43:39 Syeda Prominences Protected 14:45:47 A # 20 IV was noted in the Antecubital (left). Grade = 0 0.9ns kvo 14:45:49 History and physical on the chart. Assessment: Initial Case, DV=010 BPM, Rhythm=af, HPPH=977/56 mmhg, Chest Pain=0, Edema=Mild, Co john=Normal, Skin = Warm, Dry Right Pulses: Quang Ped=1 Left Pulses: Quang Ped=1 14:55:32 Lower Right Extremities: Color=Normal Lower Left Extremities: Color=Normal Neurological: State=Alert, Ox3, LO Respiration: Resp=18 B/min, SpO2=98 % 14:58:24 Table restraints applied according to hospital policy 15:03:06 Bilateral groins prepped with 2% chlorhexidine, and draped after a 3 minute waiting time. 15:06:13 Dr. Joseph at bedside from anesthesia. 15:14:54 ICD pacemaker turned off and set to VVI 40 HR by rep Hodge from [facility] per Dr. Woodard's orde r. 15:16:49 MD arrived. Time Out. Correct patient, procedure, procedure equipment, site and side verified with physicia n present. Time 15:19:48 concurred by MD, individual staff and CHAINSTITCH ELASTIC ATTACHER. Time Out #2 - Consents verified, patient in correct position, all results are labled and displa yed, safety precautions 15:19:51 taken, antibiotics administered. Time out concurred by MD, individual staff and CHAINSTITCH ELASTIC ATTACHER in procedu re 15:20:05 Case Start 15:20:08 20 mL 1% XYLOCAINE given in lab by Jeffrey Woodard via Subcutaneous. Ordered by Jeffrey Woodard . 15:22:44 Vascular access was obtained in the Fem Vein (right). 15:22:45 Vascular access was obtained in the Fem Vein (right). 15:22:46 Vascular access was obtained in the Fem Vein (right). 15:22:47 Vascular access was obtained in the Fem Vein (right). 15:23:27 A SHEATH, EPS, FR8 FAST CATH FR 8 was advanced into the Fem Art (right) using the Modified Seldinger technique. 15:23:28 A SHEATH, EPS, FR5 FAST CATH FR 5 was advanced into the Fem Art (right) using the Modified Seldinger technique. 15:23:29 A SHEATH, EPS, FR5 FAST CATH FR 5 was advanced into the Fem Art (right) using the Modified Seldinger technique. 15:23:30 A SHEATH, EPS, FR6 FAST CATH FR 6 was advanced into the Fem Art (right) using the Modified Seldinger technique. A CATHETER, JSN, QUAD FR 5 was advanced vis Fem Vein (right) and placed in the CS. Placement wa s visually 15:23:55 confirmed under fluoroscopy. A CATHETER, JSN, QUAD FR 5 was advanced vis Fem Vein (right) and placed in the HIS. Placement w as visually 15:23:56 confirmed under fluoroscopy. A CATHETER, JSN, QUAD FR 5 was advanced vis Fem Vein (right) and placed in the RVA. Placement w as visually 15:25:05 confirmed under fluoroscopy. 15:32:43 Pacing via Quad cath to CS 15:36:20 Medications reviewed. A CATHETER, DARLINEUS DS, 8MM, F TYPE QUAD FR 7 was advanced vis Fem Vein (right) and placed in t he Isthmus. 15:37:00 Placement was visually confirmed under fluoroscopy. 15:39:47 RF Ablation of the Isthmus with a CATHETER, CELSIUS DS, 8MM, F TYPE QUAD FR 7. 15:41:10 ECG rhythm of NSR noted. Patient cardioverted at 200 joules. Success 15:42:32 Pacing via Quad cath to HIS 04/26/2018 4:23:04 PM Financial #: [id number] 7 of 9 Patient Name: KAZ MILIAN Study #: [id number] Initial MD: Jeffrey Woodard Date of : 1930 Study Date: 04/26/2018 15:46:38 RF Ablation of the Isthmus with a CATHETER, CELSIUS DS, 8MM, F TYPE QUAD FR 7. 15:47:50 Pacing via Quad cath to RV 15:49:44 Case End (Physician broke scrub) 15:56:59 Pacing off. 15:57:[address] [employer] [address] Dr[address] Woodard giving orders. 15:58:26 Catheter(s) removed without difficulty 16:03:52 Sheaths removed; pressure applied to access sites. 16:07:30 Holding Area notified of successful intervention. 16:07:34 Bedside Report will be given. 16:10:10 Sterile dressing applied to site Assessment: Final Case, HR=80 BPM, DNJD=630/58 mmhg, Edema=None, Color=Normal, Skin = Warm, Dr frandy Right Pulses: Quang Ped=1 Left Pulses: Quang Ped=1 16:10:52 Lower Right Extremities: Color=Normal Lower Left Extremities: Color=Normal Neurological: State=Drowsy, LO Respiration: Resp=14 B/min, SpO2=91 % 16:11:19 No case complications noted. 16:11:26 Cine recording checked. 16:12:28 Defibrillator and ground pads removed. Skin intact. 16:13:47 Patient moved to stretcher. Pt remains very sedated but breathing independently with nasal cannula supplemental o2. 16:14:44 PACU called. Spoke to [place]. 16:15:15 Pt transported to PACU via bed with CHAINSTITCH ELASTIC ATTACHER and tech accompanying pt, in stable condition. 16:16:28 Notified [facility] pt now going to PACU first. Spoke with Lolita End Study - Contrast Media Used In Study Contrast Total Opened (mL) Total Used (mL) Total Wasted (mL) Unspecified 0 0 0 End Study - Maximum Contrast Load Max Contrast Load (mL) 363.9 End Study - Radiation Exposure Fluoro Time (minutes) 5.5 04/26/2018 4:23:04 PM Financial #: [id number] Patient Name: KAZ MILIAN Study #: [id number] Initial MD: Jeffrey Woodard Date of : 1930 Study Date: 04/26/2018 End Study - Patient Disposition Complications Transferred To No Telemetry Bed 04/26/2018 4:23:04 PM Financial #: [id number]
[2018-04-26] MEDS ORDERED: oxyCODONE/ACETAMINOPHEN 5 MG/325 MG TAB PO PRN ×2 (16:15)
[2018-04-26] MEDS ORDERED: ATROPINE SULFATE 1 MG/ML VIAL IV PUSH PRN (16:15)
[2018-04-26] MEDS ORDERED: BACITRACIN OINT 0.9 GM PKT TOP ONE (16:15)
[2018-04-26] MEDS ORDERED: LORazepam 2 MG/ML VIAL IV PUSH PRN (16:15)
[2018-04-26] MEDS ORDERED: SODIUM CHLOR 0.9% 250 ML INJ 250 ML IV PRN (16:15)
[2018-04-26] MEDS ORDERED: ONDANSETRON HCL 4 MG/2 ML VIAL IV PUSH PRN (16:15)
[2018-04-26] MEDS ORDERED: LIDOCAINE HCL 1% 50 ML VIAL INFIL PRN (16:15)
[2018-04-26] MEDS ORDERED: DO NOT ADM ANY ANTICOAGULANT DRUGS PRN (16:25)
[2018-04-26] MEDS ORDERED: ONDANSETRON ODT 4 MG TAB PO PRN (16:45)
--- NOTE | 2018-04-26 17:12 | MA ---
cc: Jeffrey Woodard MD, Hanscy MD Nemou,Cirilo Cisse,Devon Hood MD, DO DATE: 04/26/2018 PROCEDURES: Electrophysiology study, CS cannulation, 3-D mapping, AV node ablation, device reprogramming, ventricular tachycardia, cardioversion. INDICATIONS: Mrs. Howell is an 87-year-old female with atrial fibrillation on multiple medications, still has atrial fibrillation with biventricular response. Decision for AV node modification was taken. The risks, the nature and the benefits of the procedure are clearly stated to her. Risks include pneumothorax, cardiac perforation, stroke, need for open heart surgery and even . The patient understood and agreed to proceed. DESCRIPTION OF PROCEDURE: After written informed consent was obtained, the patient was brought to the EP lab where she was prepped and draped in the usual sterile fashion. Conscious sedation was initiated and maintained throughout the procedure by the anesthesiologist. Once sedation was verified, the right inguinal area was anesthetized with 2% Xylocaine. Using modified Seldinger technique, the right femoral vein was cannulated on 4 occasions, 4 guide wires were advanced. Over the wire, two 5, a 6 and a 8 Tanzanian hemaquet were advanced. Then, under fluoroscopic guidance, through the 5 and 6 [place] Hemaquet, three 5 Tanz[place] Bella curved quadripolar electrophysiology catheters were advanced and placed along the his, coronary sinus and right ventricular apex. The patient was in what appeared to be junctional rhythm. Device was reprogrammed to VVI 40. The patient was no longer pacing. The patient has a short VA time and dissociated. At this point, I did realize the patient was in ventricular tachycardia. Electrocardiogram has all the characteristic of ventricular tachyarrhythmia or slow VT. At that point, 100 mg IV bolus lidocaine was given. It slowed down but still in ventricular tachycardia. I decided to proceed with cardioversion. That converted the patient into sinus rhythm and subsequently back in atrial fibrillation, atrial tachycardia with a biventricular response. At this point, I decided to proceed with ablation. Through the 8-T[place] Hemaquet, a AppHero F-curved 8 mm mapping radiofrequency ablation catheter was advanced. Using EnSite endocardial solution mapping, a 3-dimensional configuration of the right atrium was obtained. Then the catheter was placed at the tricuspid valve annulus. When it is observed, radiofrequency energy was delivered. The patient was in junctional rhythm. Further burn was delivered in the area. The patient was V pacing at 40 was observed for around 20 minutes. Pacing was performed at 800 milliseconds cycle length from the RV catheter and discontinued. At that point, there was no reconnection. Procedure complete. All catheters were removed. The biventricular pacer defibrillator was reprogrammed VVI 80, upper rate 100 beats per minute, VVIR upper rate 100 beats per minute. LV first by 40 milliseconds. The defibrillator setting was the same. That was a very complex case. No incident to report. The patient tolerated the procedure. Blood loss minimal. ELECTROCARDIOGRAM: At baseline, the patient was in a ventricular tachyarrhythmia. Postprocedure, the patient in sinus rhythm. BASIC INTERVAL: Basic cycle length was around 500 milliseconds. Tachy - AV node was mapped. Ablation was successful. CONCLUSIONS: Successful electrophysiology study, mapping and radiofrequency ablation of AV node, CS cannulation, cardioversion, biventricular pacer defibrillator reprogramming COMMENT AND RECOMMENDATION: The patient is going to be transferred to the recovery room. Tikosyn and most of the medications will be discontinued. If the patient is stable in the morning, can be discharged home. MD EDWIGE Li/ , 04:08 PM , 05:10 PM
[2018-04-27] VITALS (12 sets, daily range): BP systolic 93–129; BP diastolic 51–70; PULSE 79–80; RESP 14–18; TEMP 97.4–98.3; O2SAT 97–100
[2018-04-27] MEDS: CHLORHEXIDINE GLUCONATE 2 % 1 PACK (2 CLOTHS) TOP SCH (04:00)
[2018-04-27 06:06] LABS: INTERNATIONAL NORMALIZED RATIO 1.6 RATIO; PROTHROMBIN TIME - PATIENT 16.2 SEC (9.8-11.6)
[2018-04-27] MEDS: HEPARIN SODIUM - SQ 10,000 UNITS/ML VIAL SQ SCH ×3 (06:36→21:30)
--- NOTE | 2018-04-27 07:54 | PD.CARD.PN ---
Subjective Subjective Remarks Denies CP, dyspnea, dizziness, palpitations. Hungry. Slept well. Objective Medications Item Value Date Time Warfarin Sodium 3 mg 04/25/18 1600 (Coumadin) DAILY@16/PO Spironolactone 25 mg 04/21/18 0900 (Aldactone) DAILY/PO 04/26/18 0944 Torsemide 20 mg 04/21/18 0900 (Demadex) DAILY/PO 04/26/18 0944 Current Medications Medications (Trade) Dose Ordered Sig/Suman Route Start Time Stop Time Status Last Admin (Lopressor Inj) 5 mg Q5M PRN IV PUSH 04/20/18 22:30 04/26/18 11:45 (Lopressor) 50 mg BID PO 04/21/18 09:00 Future Hold (Ocuvite) 1 tab DAILY PO 04/21/18 09:00 04/26/18 09:43 (KCl) 20 meq QID PO 04/21/18 09:00 04/26/18 09:43 (Aldactone) 25 mg DAILY PO 04/21/18 09:00 04/26/18 09:44 (Demadex) 20 mg DAILY PO 04/21/18 09:00 04/26/18 09:44 Patient Own Medication PT OWN MED: Fluticas... BID INH 04/21/18 09:00 (NS Flush) 2 ml UNSCH PRN IV FLUSH 04/21/18 03:00 (NS Flush) 2 ml BID IV FLUSH 04/21/18 09:00 04/26/18 22:02 (Tylenol) 650 mg Q6H PRN PO 04/21/18 03:00 04/21/18 19:01 (Zofran Odt) 4 mg Q6H PRN PO 04/21/18 03:00 (Restoril) 15 mg HS PRN PO 04/21/18 03:00 (Duoneb Neb) 1 ampule Q2HR NEB PRN INH 04/21/18 03:00 (Heparin Inj) 5,000 units Q8H SQ 04/21/18 06:00 04/27/18 06:36 ([facility] [place] 1 Q361D XX 04/21/18 03:00 04/21/18 03:00 (Chlorhexidine 2% Cloth) Taper DAILY@04 TOP 04/21/18 04:00 04/17/19 03:59 04/25/18 03:15 (Chlorhexidine 2% Cloth) 3 pack UNSCH PRN TOP 04/21/18 03:00 (Rhea-Colace) 1 tab BID PO 04/21/18 09:00 04/24/18 21:22 (Milk Of Magnesia Liq) 30 ml Q12H PRN PO 04/21/18 03:00 (Senokot) 17.2 mg Q12H PRN PO 04/21/18 03:00 (Dulcolax Supp) 10 mg DAILY PRN RECTAL 04/21/18 03:00 (Lactulose Liq) 30 ml DAILY PRN PO 04/21/18 03:00 Potassium Chloride 100 ml @ 50 mls/hr Q2H PRN IV 04/21/18 07:00 Potassium Chloride 100 ml @ 50 mls/hr Q2H PRN IV 04/21/18 07:00 (K-Lyte Cl Eff) 50 meq UNSCH PRN PO 04/21/18 07:00 Potassium Chloride 100 ml @ 25 mls/hr UNSCH PRN IV 04/21/18 07:00 Potassium Chloride 100 ml @ 50 mls/hr Q2H PRN IV 04/21/18 07:00 Magnesium Sulfate 4 gm/Sodium Chloride 100 ml @ 50 mls/hr UNSCH PRN IV 04/21/18 07:00 (Mag-Ox) 800 mg UNSCH PRN PO 04/21/18 07:00 Magnesium Sulfate 2 gm/Sodium Chloride 100 ml @ 50 mls/hr UNSCH PRN IV 04/21/18 07:00 (K-Phos) 2,000 mg Q4H PRN PO 04/21/18 07:00 Sodium Phosphate 30 mmol/Sodium Chloride 250 ml @ 42 mls/hr UNSCH PRN IV 04/21/18 07:00 (K-Phos) 2,000 mg UNSCH PRN PO/TUBE 04/21/18 07:00 Potassium Phosphate 30 mmol/ Sodium Chloride 260 ml @ 42 mls/hr UNSCH PRN IV 04/21/18 07:00 (Pepcid) 20 mg DAILY PO 04/23/18 09:00 04/26/18 09:43 Pharmacy Profile Note 0 ml @ 0 mls/hr UNSCH OTHER 04/25/18 15:00 (Coumadin) 3 mg DAILY@16 PO 04/25/18 16:00 (Percocet 5-325 Mg) 1 tab Q4H PRN PO 04/26/18 16:15 (Percocet 5-325 Mg) 2 tab Q4H PRN PO 04/26/18 16:15 (Ativan Inj) 0.5 mg UNSCH PRN IV PUSH 04/26/18 16:15 04/27/18 16:14 (Atropine Inj) 0.5 mg UNSCH PRN IV PUSH 04/26/18 16:15 Sodium Chloride 250 ml @ 500 mls/hr ONCE PRN IV 04/26/18 16:15 04/27/18 16:14 (Zofran Inj) 4 mg Q4H PRN IV PUSH 04/26/18 16:15 (Xylocaine 1% Inj (50 ml)) 10 ml UNSCH PRN INFIL 04/26/18 16:15 04/27/18 16:14 ([facility] [place] ALL NURSING DEPARTME... UNSCH PRN .XX 04/26/18 16:25 04/27/18 16:24 (Zofran Odt) 4 mg Q4H PRN PO 04/26/18 16:45 Vital Signs / I&O Vital Signs Date Time Temp Pulse Resp B/P (MAP) Pulse Ox O2 Delivery O2 Flow Rate FiO2 04/27/18 06:00 80 04/27/18 04:00 79 04/27/18 04:00 79 15 104/55 (71) 100 04/27/18 02:00 79 04/27/18 00:00 80 04/27/18 00:00 80 14 99/55 (70) 100 04/26/18 22:00 80 04/26/18 20:00 80 04/26/18 20:00 98.1 80 16 107/53 (71) 100 04/26/18 19:00 94 Room Air 04/26/18 18:00 80 04/26/18 17:27 98.5 80 15 105/52 (69) 100 04/26/18 17:00 80 16 136/62 (86) 99 Nasal Cannula 2 04/26/18 16:45 80 16 125/58 (80) 97 Nasal Cannula 2 04/26/18 16:30 80 16 115/54 (74) 95 Nasal Cannula 2 04/26/18 16:25 96.8 80 16 117/56 (76) 94 Nasal Cannula 2 04/26/18 14:00 110 04/26/18 14:00 110 22 111/78 (89) 97 04/26/18 13:00 111 25 104/56 (72) 97 04/26/18 12:00 98.0 117 19 91/54 (66) 97 04/26/18 12:00 109 04/26/18 11:00 119 20 92/57 (69) 97 04/26/18 10:00 125 04/26/18 10:00 125 20 104/55 (71) 96 04/26/18 09:00 68 24 131/56 (81) 97 04/26/18 08:00 69 04/26/18 08:00 97.8 69 16 100/50 (67) 92 I/O 04/26/18 04/26/18 04/26/18 04/27/18 04/27/18 04/27/18 07:00 15:00 23:00 07:00 15:00 23:00 Intake Total 200 ml 250 ml 240 ml Output Total 600 ml 1350 ml Balance -400 ml -1100 ml 240 ml Intake Oral 200 ml 240 ml 240 ml IV Total 10 ml Output Urine Total 600 ml 1350 ml # Bowel Movements 0 1 3 Physical Exam GENERAL: Well developed, thin. No acute distress. HEENT: Jugular venous pressure is normal. CHEST: Lungs clear to auscultation bilaterally. Unlabored respiratory effort. CARDIAC: Regular rate and rhythm without S3, S4, or murmur. ABDOMEN: Soft, nontender, no hepatosplenomegaly. Bowel sounds present. EXTREMITIES: No clubbing, cyanosis, or edema. Laboratory Laboratory Tests Test 04/26/18 11:06 04/27/18 03:35 Prothrombin Time 15.3 SEC 16.2 SEC Prothromb Time International Ratio 1.5 RATIO 1.6 RATIO Activated Partial Thromboplast Time 35.9 SEC Assessment and Plan Problem List: (1) Paroxysmal atrial fibrillation ICD Codes: I48.0 - Paroxysmal atrial fibrillation Status: Chronic Plan: Stable s/p AV node ablation. INR subtherapeutic. Rec keep in hospital until INR > 2.0 given her high thromboembolic risk. Can move out of ICU. (2) Cardiomyopathy ICD Codes: I42.9 - Cardiomyopathy, unspecified Status: Chronic Plan: Stable. Compensate. No CHF. EF 20-25% by echo this admission. Recommend resume lower dose metoprolol. No ANTHONY-I or ARB with relatively low BP' s. Permanent Comment: Non-ischemic Last Edited By: Baltazar Pichardo MD on Apr 22, 2018 09:00 (3) S/P AVR ICD Codes: Z95.2 - Presence of prosthetic heart valve Status: Chronic Permanent Comment: [facility]. Moncho mechanical bileaflet Last Edited By: Baltazar Pichardo MD on Apr 22, 2018 09:00 (4) AICD (automatic cardioverter/defibrillator) present ICD Codes: Z95.810 - Presence of automatic (implantable) cardiac defibrillator Status: Chronic Code Status full code Discussed Condition With patient Problem Qualifiers (1) Cardiomyopathy: Qualified Codes: I42.0 - Dilated cardiomyopathy Bipin Helton MD Apr 27, 2018 07:54
[2018-04-27] MEDS: SODIUM CHLORIDE 0.9% FLUSH 10 ML FLUSH IV FLUSH SCH ×2 (08:46→21:27)
[2018-04-27] MEDS: DOCUSATE SODIUM 50 MG/SENNA 8.6 MG TAB PO SCH ×2 (08:46→21:00)
[2018-04-27] MEDS: MULTIVITAMIN-OPHTHALMIC 1 TAB PO SCH (08:47)
[2018-04-27] MEDS: TORSEMIDE 20 MG TAB PO SCH (08:47)
[2018-04-27] MEDS: SPIRONOLACTONE 25 MG TAB PO SCH (08:47)
[2018-04-27] MEDS: POTASSIUM CHLORIDE 20 MEQ CONTROLLED RELEASE TAB PO SCH ×4 (08:47→21:26)
[2018-04-27] MEDS: METOPROLOL TARTRATE 25 MG TAB PO SCH ×2 (08:47→21:26)
[2018-04-27] MEDS: FAMOTIDINE 20 MG TAB PO SCH (08:47)
[2018-04-27] MEDS: FLUTICASONE PROPIONATE INH SCH ×2 (09:00→21:00)
--- NOTE | 2018-04-27 12:52 | EKG ---
Date Performed: 04/26/2018 Time Performed: 16:38:28 PTAGE: 87 years EKG: ELECTRONIC VENTRICULAR PACEMAKER ABNORMAL RHYTHM ECG PREVIOUS TRACING : 04/21/2018 09.09 Since the previous tracing, no significant change noted DOCTOR: Guillermo Galloway Interpretating Date/Time 04/27/2018 12:50:18
--- NOTE | 2018-04-27 13:25 | HHI.PR ---
Subjective Remarks "I want to go home " Patient denied any dizziness lightheaded chest pain or short of breath She stated post ablation 04/26, cardiology recommended to keep in hospital until INR above 2 She is stable will transfer to medical floor Objective Vitals Vital Signs Date Time Temp Pulse Resp B/P (MAP) Pulse Ox O2 Delivery O2 Flow Rate FiO2 04/27/18 10:00 80 04/27/18 08:00 99 Room Air 04/27/18 08:00 80 04/27/18 08:00 97.7 80 15 101/53 (69) 99 04/27/18 06:50 97 Nasal Cannula 2.00 04/27/18 06:00 80 04/27/18 04:00 79 04/27/18 04:00 79 15 104/55 (71) 100 04/27/18 02:00 79 04/27/18 00:00 80 04/27/18 00:00 80 14 99/55 (70) 100 04/26/18 22:00 80 04/26/18 20:00 80 04/26/18 20:00 98.1 80 16 107/53 (71) 100 04/26/18 19:00 94 Room Air 04/26/18 18:00 80 04/26/18 17:27 98.5 80 15 105/52 (69) 100 04/26/18 17:00 80 16 136/62 (86) 99 Nasal Cannula 2 04/26/18 16:45 80 16 125/58 (80) 97 Nasal Cannula 2 04/26/18 16:30 80 16 115/54 (74) 95 Nasal Cannula 2 04/26/18 16:25 96.8 80 16 117/56 (76) 94 Nasal Cannula 2 04/26/18 14:00 110 04/26/18 14:00 110 22 111/78 (89) 97 I/O 04/26/18 04/26/18 04/26/18 04/27/18 04/27/18 04/27/18 06:59 14:59 22:59 06:59 14:59 22:59 Intake Total 200 ml 250 ml 240 ml Output Total 600 ml 1350 ml Balance -400 ml -1100 ml 240 ml Intake Oral 200 ml 240 ml 240 ml IV Total 10 ml Output Urine Total 600 ml 1350 ml # Bowel Movements 0 1 3 Result Diagram: 04/23/18 0324 04/26/18 0449 Objective Remarks GENERAL: Frail elderly female in no apparent distress. CARDIOVASCULAR: Paced rhythm RESPIRATORY: Fair air entry bilaterally. No W, R, or R GASTROINTESTINAL: Abdomen soft, non-tender, nondistended. Positive bowel sounds MUSCULOSKELETAL: Extremities without clubbing, cyanosis, or edema. Pedal pulses appreciated NEUROLOGICAL: Awake and alert. Moves all extremity. Normal speech.no focal neurological deficit A/P Problem List: (1) Atrial fibrillation, persistent ICD Code: I48.1 - Persistent atrial fibrillation (2) Cardiomyopathy ICD Code: I42.9 - Cardiomyopathy, unspecified Status: Chronic Permanent Comment: Non-ischemic Last Edited By: Baltazar Pichardo MD on Apr 22, 2018 09:00 (3) AICD (automatic cardioverter/defibrillator) present ICD Code: Z95.810 - Presence of automatic (implantable) cardiac defibrillator Status: Chronic (4) S/P AVR ICD Code: Z95.2 - Presence of prosthetic heart valve Status: Chronic Permanent Comment: Last Edited By: Bipin Helton MD on Apr 28, 2018 09:29 (5) CHAO (acute kidney injury) ICD Code: N17.9 - Acute kidney failure, unspecified Assessment and Plan 04/24: Creatinine trending nicely down from 2.06-1.04, INR is 3 today, EF 20-25% , repeat CBC BMP in a.m., monitor temperature, blood pressure 04/25: Patient on esmolol drip per cardiology, heart rate control, INR yesterday was 3, today is 1.8 will resume Coumadin, I discussed with pharmacist regarding Coumadin, DC heparin for DVT prophylaxis is no need for 04/26: Stable going for ablation today, monitor postprocedure, INR in a.m. today' s 1.5 04/27:Patient denied any dizziness lightheaded chest pain or short of breath, She status post ablation 04/26, cardiology recommended to keep in hospital until INR above 2, She is stable will transfer to medical floor, PT OT, monitor INR A/P: Atrial fibrillation, persistent Cardiology consult, on esmolol drip, EP warp splitter consultation and for ablation Continue metoprolol, digoxin, and Tikosyn, continue warfarin Cardiomyopathy Non-ischemic Continue home dose medications. Metoprolol and torsemide. Cardiology following. EF 20-25%, -AICD (automatic cardioverter/defibrillator) present -S/P AVR on Coumadin -Coumadin toxicity Warfarin on hold for INR of 4.5 [facility] Moncho mechanical bileaflet - CHAO (acute kidney injury) Likely secondary to A. fib and dehydration. Much improved. Continue to monitor. Avoid nephrotoxins. Problem Qualifiers (1) Cardiomyopathy: Qualified Codes: I42.0 - Dilated cardiomyopathy Cirilo Rodriguez MD Apr 27, 2018 13:25
[2018-04-27] MEDS: WARFARIN SOD 3 MG TAB PO SCH (16:40)
[2018-04-28] VITALS (11 sets, daily range): BP systolic 93–114; BP diastolic 55–68; PULSE 79–80; RESP 18–20; TEMP 97.1–98.1; O2SAT 94–100
[2018-04-28] MEDS: CHLORHEXIDINE GLUCONATE 2 % 1 PACK (2 CLOTHS) TOP SCH (04:00)
[2018-04-28] MEDS: HEPARIN SODIUM - SQ 10,000 UNITS/ML VIAL SQ SCH ×3 (06:00→21:18)
--- NOTE | 2018-04-28 07:47 | HHI.PR ---
Objective Vitals Vital Signs Date Time Temp Pulse Resp B/P (MAP) Pulse Ox O2 Delivery O2 Flow Rate FiO2 04/28/18 07:23 Room Air 04/28/18 04:00 97.7 80 18 114/68 (83) 96 04/28/18 03:41 80 04/28/18 00:00 98.1 80 18 100/62 (75) 95 04/27/18 23:42 80 04/27/18 20:00 Room Air 04/27/18 20:00 97.4 79 18 129/70 (89) 97 04/27/18 16:00 98.3 80 16 98/55 (69) 98 04/27/18 16:00 80 04/27/18 14:00 80 04/27/18 12:00 80 04/27/18 12:00 98.1 80 18 93/51 (65) 99 04/27/18 10:00 80 04/27/18 08:00 99 Room Air 04/27/18 08:00 80 04/27/18 08:00 97.7 80 15 101/53 (69) 99 I/O 04/27/18 04/27/18 04/27/18 04/28/18 04/28/18 04/28/18 07:00 15:00 23:00 07:00 15:00 23:00 Intake Total 240 ml Balance 240 ml Intake Oral 240 ml # Bowel Movements 3 Result Diagram: 04/26/18 0449 Marisol Moran MD Apr 28, 2018 07:47
--- NOTE | 2018-04-28 07:50 | HHI.PR ---
Subjective Remarks awake and alert, no acute distress no palpitations or shortness of breath states baseline ambulates with a front wheel walker no complains of pain telemetry in SR will increase activity and monitor- d/w Objective Vitals Vital Signs Date Time Temp Pulse Resp B/P (MAP) Pulse Ox O2 Delivery O2 Flow Rate FiO2 04/28/18 07:23 Room Air 04/28/18 04:00 97.7 80 18 114/68 (83) 96 04/28/18 03:41 80 04/28/18 00:00 98.1 80 18 100/62 (75) 95 04/27/18 23:42 80 04/27/18 20:00 Room Air 04/27/18 20:00 97.4 79 18 129/70 (89) 97 04/27/18 16:00 98.3 80 16 98/55 (69) 98 04/27/18 16:00 80 04/27/18 14:00 80 04/27/18 12:00 80 04/27/18 12:00 98.1 80 18 93/51 (65) 99 04/27/18 10:00 80 04/27/18 08:00 99 Room Air 04/27/18 08:00 80 04/27/18 08:00 97.7 80 15 101/53 (69) 99 I/O 04/27/18 04/27/18 04/27/18 04/28/18 04/28/18 04/28/18 07:00 15:00 23:00 07:00 15:00 23:00 Intake Total 240 ml Balance 240 ml Intake Oral 240 ml # Bowel Movements 3 Result Diagram: 04/26/18 7912 Imaging Last Impressions Chest X-Ray 04/20/182127 Signed Impressions: CONCLUSION: Subsegmental basilar opacity most characteristic of atelectasis. Cardiomegaly w ith pacer leads as above. Objective Remarks awake and alert, no acute distress, slightly hard of hearing anicteric no nuchal rigidity lungs- no rales regular rhtyhm abdomen soft, nontender extremiteis- no edema neuro exam non focal Procedures 04/26 Electrophysiology study, CS cannulation, 3-D mapping, AV node ablation, device reprogramming, ventricular tachycardia, cardioversion. A/P Problem List: (1) Atrial fibrillation, persistent ICD Code: I48.1 - Persistent atrial fibrillation (2) Cardiomyopathy ICD Code: I42.9 - Cardiomyopathy, unspecified Status: Chronic Permanent Comment: Non-ischemic Last Edited By: Baltazar Pichardo MD on Apr 22, 2018 09:00 (3) AICD (automatic cardioverter/defibrillator) present ICD Code: Z95.810 - Presence of automatic (implantable) cardiac defibrillator Status: Chronic (4) S/P AVR ICD Code: Z95.2 - Presence of prosthetic heart valve Status: Chronic Permanent Comment: Last Edited By: Bipin Helton MD on Apr 28, 2018 09:29 (5) CHAO (acute kidney injury) ICD Code: N17.9 - Acute kidney failure, unspecified Assessment and Plan 87 years old female Paroxysmal Atrial fibrillation S/P EPS/AV bry ablation 04/26 - in SR Cardiomyopathy Non-ischemic - not in clinical failure EF 20-25% AICD in place S/P AVR St. Moncho mechanical bileaflet - Continue metoprolol 25 mg po bid- Aldactone 25 mg po daily- Demadex 20 mg po daily - on po KCL - no ANTHONY or ARB with relatively low BP - on Coumadin 3 mg - INR from today pending - ff INR- goal 2.5-3.5. On Heparin - CHAO (acute kidney injury) Likely secondary to dehydration. Much improved. Continue to monitor. Avoid nephrotoxins. PT/OT eval and treat Increase activity- out of bed for all meals CM consult for home health care arrangement Problem Qualifiers (1) Cardiomyopathy: Qualified Codes: I42.0 - Dilated cardiomyopathy Marisol Moran MD Apr 28, 2018 07:50
--- NOTE | 2018-04-28 08:17 | HHI.FF ---
Face to Face Verification Diagnosis: (1) S/P AV bry ablation (2) Atrial fibrillation (3) Cardiomyopathy Physical Therapy Order: Evaluate and Treat, Improve ambulation Occupational Therapy Order: Improve ADL, Fine motor coordination Home Health Nursing Order: Medical education Signs/symptoms of disease process CHF education Nursing assessment with vital signs Home Health Aide Order: To Assist In: Bathing and personal care, hoe runner and meal prep I have seen patient Karis Howell on 04/28/18. My clinical findings support the need for the requested home health care services because: Patient has SOB Deconditioned w/ increased weakness High risk of falls I certify that my clinical findings support that this patient is homebound because: Need for psychosocial assistance Poor cardiac reserve Marisol Moran MD Apr 28, 2018 08:17 Aniceto Roman DO Apr 30, 2018 11:44
[2018-04-28 08:39] LABS: INTERNATIONAL NORMALIZED RATIO 1.4 RATIO
[2018-04-28] MEDS: MULTIVITAMIN-OPHTHALMIC 1 TAB PO SCH (09:00)
[2018-04-28] MEDS: FLUTICASONE PROPIONATE INH SCH ×2 (09:00→21:00)
[2018-04-28] MEDS: DOCUSATE SODIUM 50 MG/SENNA 8.6 MG TAB PO SCH ×2 (09:00→21:00)
--- NOTE | 2018-04-28 09:29 | PD.CARD.PN ---
Subjective Subjective Remarks Denies CP, dyspnea, dizziness, palpitations. Slept well. Objective Medications Item Value Date Time Metoprolol 25 mg 04/27/18 0900 Tartrate Q12HR/PO 04/27/182125 (Lopressor) Warfarin Sodium 3 mg 04/25/18 1600 (Coumadin) DAILY@16/PO 04/27/18 1640 Potassium Chloride 20 meq 04/21/18 0900 (KCl) QID/PO 04/27/182125 Spironolactone 25 mg 04/21/18 0900 (Aldactone) DAILY/PO 04/27/18 0847 Torsemide 20 mg 04/21/18 0900 (Demadex) DAILY/PO 04/27/18 0847 Heparin Sodium 5,000 units 04/21/18 0600 (Porcine) Q8H/SQ 04/28/18 06 (Heparin Inj) Current Medications Medications (Trade) Dose Ordered Sig/Suman Route Start Time Stop Time Status Last Admin (Lopressor Inj) 5 mg Q5M PRN IV PUSH 04/20/18 22:30 04/26/18 11:45 (Lopressor) 50 mg BID PO 04/21/18 09:00 Future Hold (Ocuvite) 1 tab DAILY PO 04/21/18 09:00 04/27/18 08:47 (KCl) 20 meq QID PO 04/21/18 09:00 04/27/18 21:26 (Aldactone) 25 mg DAILY PO 04/21/18 09:00 04/27/18 08:47 (Demadex) 20 mg DAILY PO 04/21/18 09:00 04/27/18 08:47 Patient Own Medication PT OWN MED: Fluticas... BID INH 04/21/18 09:00 (NS Flush) 2 ml UNSCH PRN IV FLUSH 04/21/18 03:00 (NS Flush) 2 ml BID IV FLUSH 04/21/18 09:00 04/27/18 21:27 (Tylenol) 650 mg Q6H PRN PO 04/21/18 03:00 04/21/18 19:01 (Zofran Odt) 4 mg Q6H PRN PO 04/21/18 03:00 (Restoril) 15 mg HS PRN PO 04/21/18 03:00 (Duoneb Neb) 1 ampule Q2HR NEB PRN INH 04/21/18 03:00 (Heparin Inj) 5,000 units Q8H SQ 04/21/18 06:00 04/28/18 06:00 ([facility] [place] Nursing Information) 1 Q361D XX 04/21/18 03:00 04/21/18 03:00 (Chlorhexidine 2% Cloth) Taper DAILY@04 TOP 04/21/18 04:00 04/17/19 03:59 04/25/18 03:15 (Chlorhexidine 2% Cloth) 3 pack UNSCH PRN TOP 04/21/18 03:00 (Rhea-Colace) 1 tab BID PO 04/21/18 09:00 04/24/18 21:22 (Milk Of Magnesia Liq) 30 ml Q12H PRN PO 04/21/18 03:00 (Senokot) 17.2 mg Q12H PRN PO 04/21/18 03:00 (Dulcolax Supp) 10 mg DAILY PRN RECTAL 04/21/18 03:00 (Lactulose Liq) 30 ml DAILY PRN PO 04/21/18 03:00 Potassium Chloride 100 ml @ 50 mls/hr Q2H PRN IV 04/21/18 07:00 Potassium Chloride 100 ml @ 50 mls/hr Q2H PRN IV 04/21/18 07:00 (K-Lyte Cl Eff) 50 meq UNSCH PRN PO 04/21/18 07:00 Potassium Chloride 100 ml @ 25 mls/hr UNSCH PRN IV 04/21/18 07:00 Potassium Chloride 100 ml @ 50 mls/hr Q2H PRN IV 04/21/18 07:00 Magnesium Sulfate 4 gm/Sodium Chloride 100 ml @ 50 mls/hr UNSCH PRN IV 04/21/18 07:00 (Mag-Ox) 800 mg UNSCH PRN PO 04/21/18 07:00 Magnesium Sulfate 2 gm/Sodium Chloride 100 ml @ 50 mls/hr UNSCH PRN IV 04/21/18 07:00 (K-Phos) 2,000 mg Q4H PRN PO 04/21/18 07:00 Sodium Phosphate 30 mmol/Sodium Chloride 250 ml @ 42 mls/hr UNSCH PRN IV 04/21/18 07:00 (K-Phos) 2,000 mg UNSCH PRN PO/TUBE 04/21/18 07:00 Potassium Phosphate 30 mmol/ Sodium Chloride 260 ml @ 42 mls/hr UNSCH PRN IV 04/21/18 07:00 (Pepcid) 20 mg DAILY PO 04/23/18 09:00 04/27/18 08:47 Pharmacy Profile Note 0 ml @ 0 mls/hr UNSCH OTHER 04/25/18 15:00 (Coumadin) 3 mg DAILY@16 PO 04/25/18 16:00 04/27/18 16:40 (Percocet 5-325 Mg) 1 tab Q4H PRN PO 04/26/18 16:15 (Percocet 5-325 Mg) 2 tab Q4H PRN PO 04/26/18 16:15 (Atropine Inj) 0.5 mg UNSCH PRN IV PUSH 04/26/18 16:15 (Zofran Inj) 4 mg Q4H PRN IV PUSH 04/26/18 16:15 (Zofran Odt) 4 mg Q4H PRN PO 04/26/18 16:45 (Lopressor) 25 mg Q12HR PO 04/27/18 09:00 04/27/18 21:26 Vital Signs / I&O Vital Signs Date Time Temp Pulse Resp B/P (MAP) Pulse Ox O2 Delivery O2 Flow Rate FiO2 04/28/18 07:23 Room Air 04/28/18 04:00 97.7 80 18 114/68 (83) 96 04/28/18 03:41 80 04/28/18 00:00 98.1 80 18 100/62 (75) 95 04/27/18 23:42 80 04/27/18 20:00 Room Air 04/27/18 20:00 97.4 79 18 129/70 (89) 97 04/27/18 16:00 98.3 80 16 98/55 (69) 98 04/27/18 16:00 80 04/27/18 14:00 80 04/27/18 12:00 80 04/27/18 12:00 98.1 80 18 93/51 (65) 99 04/27/18 10:00 80 I/O 04/27/18 04/27/18 04/27/18 04/28/18 04/28/18 04/28/18 07:00 15:00 23:00 07:00 15:00 23:00 Intake Total 240 ml Balance 240 ml Intake Oral 240 ml # Bowel Movements 3 Physical Exam GENERAL: Well developed, thin. No acute distress. HEENT: Jugular venous pressure is normal. CHEST: Lungs clear to auscultation anteriorly. CARDIAC: Regular rate and rhythm without S3, S4, or murmur. ABDOMEN: Soft, nontender, no hepatosplenomegaly. Bowel sounds present. EXTREMITIES: No clubbing, cyanosis, or edema. Laboratory Laboratory Tests Test 04/28/18 07:05 Prothrombin Time 14.0 SEC Prothromb Time International Ratio 1.4 RATIO Assessment and Plan Problem List: (1) Paroxysmal atrial fibrillation ICD Codes: I48.0 - Paroxysmal atrial fibrillation Status: Chronic Plan: Stable s/p AV node ablation. INR still subtherapeutic. Rec keep in hospital until INR > 2.0 given her high thromboembolic risk, unless she goes home with SQ Lovenox. Increase warfarin to 5 mg qd for now. Will have Dr. Woodard f/u PRN rest of hospital stay. (2) Cardiomyopathy ICD Codes: I42.9 - Cardiomyopathy, unspecified Status: Chronic Plan: Stable. Compensate. No CHF. EF 20-25% by echo this admission. Recommend continue beta michelle. No ARB with relatively low BP's. No ANTHONY-I with history of allergy to ANTHONY-I's. Permanent Comment: Non-ischemic Last Edited By: Baltazar Pichardo MD on Apr 22, 2018 09:00 (3) S/P AVR ICD Codes: Z95.2 - Presence of prosthetic heart valve Status: Chronic Permanent Comment: Last Edited By: Bipin Helton MD on Apr 28, 2018 09:29 (4) AICD (automatic cardioverter/defibrillator) present ICD Codes: Z95.810 - Presence of automatic (implantable) cardiac defibrillator Status: Chronic Code Status full code Discussed Condition With patient, at length Problem Qualifiers (1) Cardiomyopathy: Qualified Codes: I42.0 - Dilated cardiomyopathy Bipin Helton MD Apr 28, 2018 09:29
[2018-04-28 10:24] LABS: BICARBONATE 26.5 MEQ/L (21.0-32.0); CALCIUM 8.9 MG/DL (8.5-10.1); CREATININE 0.82 MG/DL (0.50-1.00)
[2018-04-28] MEDS: POTASSIUM CHLORIDE 20 MEQ CONTROLLED RELEASE TAB PO SCH ×4 (10:26→21:17)
[2018-04-28] MEDS: METOPROLOL TARTRATE 25 MG TAB PO SCH ×2 (10:26→21:16)
[2018-04-28] MEDS: FAMOTIDINE 20 MG TAB PO SCH (10:26)
[2018-04-28] MEDS: SPIRONOLACTONE 25 MG TAB PO SCH (10:26)
[2018-04-28] MEDS: SODIUM CHLORIDE 0.9% FLUSH 10 ML FLUSH IV FLUSH SCH ×2 (10:27→21:17)
[2018-04-28] MEDS: TORSEMIDE 20 MG TAB PO SCH (10:27)
--- NOTE | 2018-04-28 14:03 | EKG ---
Date Performed: 04/27/2018 Time Performed: 11:34:08 PTAGE: 87 years EKG: ELECTRONIC VENTRICULAR PACEMAKER ABNORMAL RHYTHM ECG PREVIOUS TRACING : 04/26/2018 16.38 Since the previous tracing, no significant change noted DOCTOR: Guillermo Galloway Interpretating Date/Time 04/28/2018 14:02:13
[2018-04-28] MEDS: WARFARIN SOD 5 MG TAB PO SCH (17:19)
[2018-04-29] VITALS (10 sets, daily range): BP systolic 96–111; BP diastolic 54–70; PULSE 76–80; RESP 16–18; TEMP 97.3–97.7; O2SAT 96–100
[2018-04-29] MEDS: CHLORHEXIDINE GLUCONATE 2 % 1 PACK (2 CLOTHS) TOP SCH (03:50)
[2018-04-29] MEDS: HEPARIN SODIUM - SQ 10,000 UNITS/ML VIAL SQ SCH (05:47)
[2018-04-29 06:14] LABS: INTERNATIONAL NORMALIZED RATIO 1.6 RATIO
--- NOTE | 2018-04-29 08:58 | HHI.PR ---
Subjective Remarks telemetry- in SR no complains of chest pain or shortness of breathstates baseline ambulates with a walker good po Objective Vitals Vital Signs Date Time Temp Pulse Resp B/P (MAP) Pulse Ox O2 Delivery O2 Flow Rate FiO2 04/29/18 04:00 97.5 78 18 110/63 (79) 99 04/29/18 00:00 97.6 80 18 111/70 (84) 97 04/28/18 23:40 80 04/28/18 20:00 Room Air 04/28/18 20:00 97.6 80 18 100/55 (70) 99 04/28/18 19:37 79 04/28/18 16:00 80 04/28/18 15:00 97.1 80 20 99/59 (72) 100 04/28/18 12:00 79 04/28/18 11:50 97.5 80 20 107/65 (79) 99 I/O 04/28/18 04/28/18 04/28/18 04/29/18 04/29/18 04/29/18 07:00 15:00 23:00 07:00 15:00 23:00 Intake Total 240 ml Output Total 400 ml Balance -160 ml Intake Oral 240 ml Output Urine Total 400 ml # Voids 2 # Bowel Movements 1 Result Diagram: 04/28/18 0847 Imaging Last Impressions Chest X-Ray 04/20/182127 Signed Impressions: CONCLUSION: Subsegmental basilar opacity most characteristic of atelectasis. Cardiomegaly w ith pacer leads as above. Objective Remarks awake and alert, no acute distress,interactive, oriented x 3 slightly hard of hearing anicteric no nuchal rigidity lungs- no rales regular rhythm abdomen soft, nontender extremities- no edema neuro exam non focal Procedures 04/26 Electrophysiology study, CS cannulation, 3-D mapping, AV node ablation, device reprogramming, ventricular tachycardia, cardioversion. A/P Problem List: (1) Atrial fibrillation, persistent ICD Code: I48.1 - Persistent atrial fibrillation (2) Cardiomyopathy ICD Code: I42.9 - Cardiomyopathy, unspecified Status: Chronic Permanent Comment: Non-ischemic Last Edited By: Baltazar Pichardo MD on Apr 22, 2018 09:00 (3) AICD (automatic cardioverter/defibrillator) present ICD Code: Z95.810 - Presence of automatic (implantable) cardiac defibrillator Status: Chronic (4) S/P AVR ICD Code: Z95.2 - Presence of prosthetic heart valve Status: Chronic Permanent Comment: Last Edited By: Bipin Helton MD on Apr 28, 2018 09:29 (5) CHAO (acute kidney injury) ICD Code: N17.9 - Acute kidney failure, unspecified Assessment and Plan 87 years old female Paroxysmal Atrial fibrillation S/P EPS/AV bry ablation 04/26 - in SR Cardiomyopathy Non-ischemic - not in clinical failure EF 20-25% AICD in place S/P AVR St. Moncho mechanical bileaflet - Continue metoprolol 25 mg po bid- Aldactone 25 mg po daily- Demadex 20 mg po daily - on po KCL - no ANTHONY or ARB with relatively low BP - on Coumadin up to 5 mg daily 04/28 - INR 1.6 today- give extra Coumadin 2.5 today - ff INR- goal 2.5-3.5 - Lovenox while INR subtherapeutic - CHAO (acute kidney injury) Likely secondary to dehydration. Much improved.- good po Continue to monitor. Avoid nephrotoxins. PT/OT daily - baseline ambulates with a walker Increase activity- out of bed for all meals CM consult for home health care arrangement DC if INR- 2.5-3.5 PCP- Dr. Cisse Problem Qualifiers (1) Cardiomyopathy: Qualified Codes: I42.0 - Dilated cardiomyopathy Marisol Moran MD Apr 29, 2018 08:57
[2018-04-29] MEDS: MULTIVITAMIN-OPHTHALMIC 1 TAB PO SCH (09:00)
[2018-04-29] MEDS: FLUTICASONE PROPIONATE INH SCH ×2 (09:00→20:13)
[2018-04-29] MEDS: FAMOTIDINE 20 MG TAB PO SCH (09:53)
[2018-04-29] MEDS: TORSEMIDE 20 MG TAB PO SCH (09:54)
[2018-04-29] MEDS: POTASSIUM CHLORIDE 20 MEQ CONTROLLED RELEASE TAB PO SCH ×4 (09:54→20:14)
[2018-04-29] MEDS: SODIUM CHLORIDE 0.9% FLUSH 10 ML FLUSH IV FLUSH SCH ×2 (09:54→20:15)
[2018-04-29] MEDS: SPIRONOLACTONE 25 MG TAB PO SCH (09:54)
[2018-04-29] MEDS: METOPROLOL TARTRATE 25 MG TAB PO SCH ×2 (09:54→20:14)
[2018-04-29] MEDS: DOCUSATE SODIUM 50 MG/SENNA 8.6 MG TAB PO SCH ×2 (09:58→20:14)
[2018-04-29] MEDS: ENOXAPARIN SODIUM 60 MG/0.6 ML SYRINGE SQ SCH ×2 (10:12→20:14)
[2018-04-29] MEDS ORDERED: WARFARIN SOD 2.5 MG TAB PO ONE (16:00)
[2018-04-29] MEDS: WARFARIN SOD 5 MG TAB PO SCH (17:19)
[2018-04-30] VITALS: BP 100/62; PULSE 80; PULSE 88; RESP 16; TEMP 97.7; O2SAT 96
[2018-04-30 04:00] VITALS: BP 99/69; PULSE 79; RESP 18; TEMP 97.6; O2SAT 97
[2018-04-30] MEDS: CHLORHEXIDINE GLUCONATE 2 % 1 PACK (2 CLOTHS) TOP SCH (04:00)
[2018-04-30 06:52] LABS: INTERNATIONAL NORMALIZED RATIO 2.6 RATIO; PROTHROMBIN TIME - PATIENT 26.1 SEC (9.8-11.6)
[2018-04-30 08:00] VITALS: PULSE 82
[2018-04-30 08:02] VITALS: BP 118/70; PULSE 79; RESP 18; TEMP 97.3; O2SAT 100
[2018-04-30] MEDS: DOCUSATE SODIUM 50 MG/SENNA 8.6 MG TAB PO SCH (09:30)
[2018-04-30] MEDS: TORSEMIDE 20 MG TAB PO SCH (09:30)
[2018-04-30] MEDS: METOPROLOL TARTRATE 25 MG TAB PO SCH (09:30)
[2018-04-30] MEDS: SPIRONOLACTONE 25 MG TAB PO SCH (09:30)
[2018-04-30] MEDS: FAMOTIDINE 20 MG TAB PO SCH (09:30)
[2018-04-30] MEDS: MULTIVITAMIN-OPHTHALMIC 1 TAB PO SCH (09:30)
[2018-04-30] MEDS: ENOXAPARIN SODIUM 60 MG/0.6 ML SYRINGE SQ SCH (09:31)
[2018-04-30] MEDS: POTASSIUM CHLORIDE 20 MEQ CONTROLLED RELEASE TAB PO SCH ×2 (09:32→13:50)
[2018-04-30] MEDS: SODIUM CHLORIDE 0.9% FLUSH 10 ML FLUSH IV FLUSH SCH (09:39)
--- NOTE | 2018-04-30 11:43 | HHI.PR ---
Subjective Remarks Patient's INR is now therapeutic at 2.6 Wants to go home today Can follow-up with Dr. Woodard and with primary Dr. Bain We will discharge to home today with home health care with PT OT and RN Objective Vitals Vital Signs Date Time Temp Pulse Resp B/P (MAP) Pulse Ox O2 Delivery O2 Flow Rate FiO2 04/30/18 08:02 97.3 79 18 118/70 (86) 100 04/30/18 08:00 96 Room Air 2.00 04/30/18 08:00 82 04/30/18 04:00 97.6 79 18 99/69 (79) 97 04/30/18 04:00 79 04/30/18 00:00 Room Air 04/30/18 00:00 80 04/30/18 00:00 97.7 88 16 100/62 (75) 96 04/29/18 20:00 Room Air 04/29/18 20:00 97.7 80 18 109/63 (78) 100 04/29/18 20:00 79 04/29/18 16:02 97.6 76 16 106/58 (74) 98 04/29/18 16:00 80 04/29/18 15:41 79 04/29/18 12:02 97.7 80 17 96/54 (68) 98 04/29/18 12:00 80 I/O 04/29/18 04/29/18 04/29/18 04/30/18 04/30/18 04/30/18 07:00 15:00 23:00 07:00 15:00 23:00 Intake Total 240 ml 480 ml Output Total 400 ml 700 ml Balance -160 ml -220 ml Intake Oral 240 ml 480 ml Output Urine Total 400 ml 700 ml # Voids 2 5 3 # Bowel Movements 1 0 1 Result Diagram: 04/28/18 0847 Other Results Laboratory Tests Test 04/28/18 07:05 04/28/18 08:47 04/29/18 05:42 04/30/18 06:12 Prothrombin Time 14.0 SEC 16.0 SEC 26.1 SEC Prothromb Time International Ratio 1.4 RATIO 1.6 RATIO 2.6 RATIO Blood Urea Nitrogen 19 MG/DL Creatinine 0.82 MG/DL Random Glucose 71 MG/DL Calcium Level 8.9 MG/DL Sodium Level 140 MEQ/L Potassium Level 4.4 MEQ/L Chloride Level 104 MEQ/L Carbon Dioxide Level 26.5 MEQ/L Anion Gap 10 MEQ/L Estimat Glomerular Filtration Rate 66 ML/MIN Imaging Last Impressions Chest X-Ray 04/20/182127 Signed Impressions: CONCLUSION: Subsegmental basilar opacity most characteristic of atelectasis. Cardiomegaly w ith pacer leads as above. Objective Remarks GENERAL: Awake alert and oriented 3 talkative and cooperative-- hard of hearing SKIN: Warm and dry. HEAD: Atraumatic. Normocephalic. EYES: Pupils equal and round. No scleral icterus. No injection or drainage. ENT: No nasal bleeding or discharge. Mucous membranes pink and moist. Tongue is midline NECK: Trachea midline. No JVD. Supple CARDIOVASCULAR: IRRegular rate and rhythm. S1-S2 no S3 or S4 RESPIRATORY: No accessory muscle use. Clear to auscultation. Breath sounds equal bilaterally. GASTROINTESTINAL: Abdomen soft, non-tender, nondistended. Hepatic and splenic margins not palpable. MUSCULOSKELETAL: Extremities without clubbing, cyanosis, or edema. No obvious deformities. NEUROLOGICAL: Awake and alert. No obvious cranial nerve deficits. Motor grossly within normal limits. 4 out of 5 muscle strength in the arms and legs. Normal speech. PSYCHIATRIC: Appropriate mood and affect; insight and judgment normal. Procedures 04/26 Electrophysiology study, CS cannulation, 3-D mapping, AV node ablation, device reprogramming, ventricular tachycardia, cardioversion. Medications and IVs Current Medications Sodium Chloride (NS Flush) 2 ml UNSCH PRN IV FLUSH FLUSH AFTER USING IV ACCESS ; Start 04/20/18 at 21:30; Stop 04/21/18 at 03:09; Status DC Sodium Chloride 500 ml @ 500 mls/hr BOLUS ONCE IV Last administered on at 21:44; Start 04/20/18 at 21:30; Stop 04/20/18 at 22:29; Status DC Acetaminophen (Tylenol) 650 mg ONCE ONCE PO Last administered on 04/20/18at 22: 36; Start 04/20/18 at 22:30; Stop 04/20/18 at 22:31; Status DC Metoprolol Tartrate (Lopressor Inj) 5 mg Q5M PRN IV PUSH RAPID HEART RATE Last administered on 04/26/18at 11:45; Start 04/20/18 at 22:30 Esmolol HCl/ Sodium Chloride 250 ml @ 0 mls/hr TITRATE PRN IV Blood Pressure Management Last administered on 04/21/18at 01:06; Start 04/21/18 at 00:45; Stop 04/21/18 at 03:04; Status DC Digoxin (Lanoxin) 0.125 mg DAILY PO Last administered on 04/24/18at 08:35; Start 04/21/18 at 09:00; Stop 04/26/18 at 16:11; Status DC Dofetilide (Tikosyn) 500 mcg BID PO Last administered on 04/26/18at 09:43; Start 04/21/18 at 09:00; Stop 04/26/18 at 16:11; Status DC Acetaminophen/ Hydrocodone Bitart ([place] 5-325 Mg) 1 tab Q6H PRN PO PAIN; Start 04/21/18 at 03:00; Stop 04/26/18 at 16:43; Status DC Metoprolol Tartrate (Lopressor) 50 mg BID PO ; Start 04/21/18 at 09:00; Status Future Hold Vit C/Vit E/Zinc/ Copper/Lutein (Ocuvite) 1 tab DAILY PO Last administered on at 09:30; Start 04/21/18 at 09:00 Potassium Chloride (KCl) 20 meq QID PO Last administered on 04/30/18at 09:32; Start 04/21/18 at 09:00 Spironolactone (Aldactone) 25 mg DAILY PO Last administered on 04/30/18at 09:30 ; Start 04/21/18 at 09:00 Torsemide (Demadex) 20 mg DAILY PO Last administered on 04/30/18at 09:30; Start 04/21/18 at 09:00 Warfarin Sodium (Coumadin) 4 mg DAILY@1600 PO Last administered on 04/21/18at 16 :10; Start 04/21/18 at 16:00; Stop 04/25/18 at 16:11; Status DC Patient Own Medication PT OWN MED: Fluticas... BID INH ; Start 04/21/18 at 09:00 Esmolol HCl/ Sodium Chloride 250 ml @ 18.6 mls/hr TITRATE PRN IV Blood Pressure Management Last administered on 04/25/18at 05:29; Start 04/21/18 at 03: 00; Stop 04/26/18 at 16:11; Status DC Sodium Chloride 1,000 ml @ 84 mls/hr [id number] IV Last administered on at 03:42; Start 04/21/18 at 02:59; Stop 04/21/18 at 10:56; Status DC Sodium Chloride (NS Flush) 2 ml UNSCH PRN IV FLUSH FLUSH AFTER USING IV ACCESS ; Start 04/21/18 at 03:00 Sodium Chloride (NS Flush) 2 ml BID IV FLUSH Last administered on 04/30/18at 09: 39; Start 04/21/18 at 09:00 Acetaminophen (Tylenol) 650 mg Q6H PRN PO FEVER >101F Last administered on 04/21at 19:01; Start 04/21/18 at 03:00 Famotidine (Pepcid) 20 mg Q12HR PO Last administered on 04/22/18at 21:02; Start 04/21/18 at 09:00; Stop 04/23/18 at 08:43; Status DC Ondansetron HCl (Zofran Odt) 4 mg Q6H PRN PO NAUSEA OR VOMITING; Start at 03:00; Stop 04/30/18 at 09:22; Status DC Temazepam (Restoril) 15 mg HS PRN PO INSOMNIA; Start 04/21/18 at 03:00 Albuterol/ Ipratropium (Duoneb Neb) 1 ampule Q2HR NEB PRN INH WHEEZING; Start 04/21/18 at 03:00 Heparin Sodium (Porcine) (Heparin Inj) 5,000 units Q8H SQ Last administered on 04/29/18at 05:47; Start 04/21/18 at 06:00; Stop 04/29/18 at 09:02; Status DC Miscellaneous Information ([facility] [place] Nursing Information) 1 Q361D XX Last administered on 04/21/18at 03:00; Start 04/21/18 at 03:00 Chlorhexidine Gluconate (Chlorhexidine 2% Cloth) Taper DAILY@04 TOP Last administered on 04/25/18at 03:15; Start 04/21/18 at 04:00; Stop 04/17/19 at 03:59 Chlorhexidine Gluconate (Chlorhexidine 2% Cloth) 3 pack UNSCH PRN TOP HYGIENIC CARE; Start 04/21/18 at 03:00 Senna/Docusate Sodium (Rhea-Colace) 1 tab BID PO Last administered on at 09:30; Start 04/21/18 at 09:00 Magnesium Hydroxide (Milk Of Magnesia Liq) 30 ml Q12H PRN PO Mild constipation ; Start 04/21/18 at 03:00 Sennosides (Senokot) 17.2 mg Q12H PRN PO Moderate constipation; Start 04/21/18 at 03:00 Bisacodyl (Dulcolax Supp) 10 mg DAILY PRN RECTAL SEVERE CONSITIPATION; Start at 03:00 Lactulose (Lactulose Liq) 30 ml DAILY PRN PO SEVERE CONSITIPATION; Start at 03:00 Sodium Chloride 1,000 ml @ 999 mls/hr Q1H1M IV Last administered on 04/21/18at 03:45; Start 04/21/18 at 04:45; Stop 04/21/18 at 05:45; Status DC Albumin Human 500 ml @ 0 mls/hr NOW ONCE IV Last administered on 04/21/18at 05: 28; Start 04/21/18 at 05:15; Stop 04/21/18 at 05:16; Status DC Sodium Chloride 1,000 ml @ 0 mls/hr BOLUS ONCE IV Last administered on at 06:08; Start 04/21/18 at 05:15; Stop 04/21/18 at 05:16; Status DC Potassium Chloride 100 ml @ 50 mls/hr Q2H PRN IV For Potassium 2.8 - 3.2 mEq/L ; Start 04/21/18 at 07:00; Stop 04/28/18 at 13:45; Status DC Potassium Chloride 100 ml @ 50 mls/hr Q2H PRN IV For Potassium 2.8 - 3.2 mEq/L ; Start 04/21/18 at 07:00; Stop 04/28/18 at 13:45; Status DC Potassium Bicarb/ Potassium Chloride (K-Lyte Cl Eff) 50 meq UNSCH PRN PO For Potassium 3.3 - 3.5 mEq/L; Start 04/21/18 at 07:00; Stop 04/28/18 at 13:45; Status DC Potassium Chloride 100 ml @ 25 mls/hr UNSCH PRN IV For Potassium 3.3 - 3.5 mEq /L; Start 04/21/18 at 07:00; Stop 04/28/18 at 13:45; Status DC Potassium Chloride 100 ml @ 50 mls/hr Q2H PRN IV For Potassium 3.3 - 3.5 mEq/L ; Start 04/21/18 at 07:00; Stop 04/28/18 at 13:45; Status DC Magnesium Sulfate 4 gm/Sodium Chloride 100 ml @ 50 mls/hr UNSCH PRN IV For Magnesium 0.9 - 1.1 mg/dL; Start 04/21/18 at 07:00; Stop 04/28/18 at 13:45; Status DC Magnesium Oxide (Mag-Ox) 800 mg UNSCH PRN PO For Magnesium 1.2 - 1.6 mg/dL; Start 04/21/18 at 07:00; Stop 04/28/18 at 13:45; Status DC Magnesium Sulfate 2 gm/Sodium Chloride 100 ml @ 50 mls/hr UNSCH PRN IV For Magnesium 1.2 - 1.6 mg/dL; Start 04/21/18 at 07:00; Stop 04/28/18 at 13:45; Status DC Potassium Phosphate (K-Phos) 2,000 mg Q4H PRN PO For Phosphorus < 2.5 mg/dL; Start 04/21/18 at 07:00; Stop 04/28/18 at 13:45; Status DC Sodium Phosphate 30 mmol/Sodium Chloride 250 ml @ 42 mls/hr UNSCH PRN IV For Phosphorus < 2.5 mg/dL; Start 04/21/18 at 07:00; Stop 04/28/18 at 13:45; Status DC Potassium Phosphate (K-Phos) 2,000 mg UNSCH PRN PO/TUBE SEE LABEL COMMENTS; Start 04/21/18 at 07:00; Stop 04/28/18 at 13:45; Status DC Potassium Phosphate 30 mmol/ Sodium Chloride 260 ml @ 42 mls/hr UNSCH PRN IV SEE LABEL COMMENTS; Start 04/21/18 at 07:00; Stop 04/28/18 at 13:45; Status DC Famotidine (Pepcid) 20 mg DAILY PO Last administered on 04/30/18at 09:30; Start 04/23/18 at 09:00 Pharmacy Profile Note 0 ml @ 0 mls/hr UNSCH OTHER ; Start 04/25/18 at 15:00 Warfarin Sodium (Coumadin) 3 mg DAILY@16 PO Last administered on 04/27/18at 16: 40; Start 04/25/18 at 16:00; Stop 04/28/18 at 09:31; Status DC Isoproterenol HCl 0 ml @ As Directed STK-MED ONCE IV ; Start 04/26/18 at 14:34; Stop 04/26/18 at 14:35; Status DC Fentanyl Citrate (fentaNYL INJ) 100 mcg STK-MED ONCE .ROUTE ; Start 04/26/18 at 14:34; Stop 04/26/18 at 14:35; Status DC Midazolam HCl (Versed Inj) 2 mg STK-MED ONCE .ROUTE ; Start 04/26/18 at 14:34; Stop 04/26/18 at 14:35; Status DC Heparin Sodium (Porcine) (Heparin Inj) 10,000 units STK-MED ONCE .ROUTE ; Start 04/26/18 at 14:34; Stop 04/26/18 at 14:35; Status DC Heparin Sodium/ Sodium Chloride 500 ml @ As Directed STK-MED ONCE .ROUTE Last administered on 04/26/18at 14:54; Start 04/26/18 at 14:54; Stop 04/26/18 at 14:55 ; Status DC Oxycodone/ Acetaminophen (Percocet 5-325 Mg) 1 tab Q4H PRN PO PAIN SCALE 1 TO 4; Start 04/26/18 at 16:15 Oxycodone/ Acetaminophen (Percocet 5-325 Mg) 2 tab Q4H PRN PO PAIN SCALE 5 TO 10; Start 04/26/18 at 16:15 Lorazepam (Ativan Inj) 0.5 mg UNSCH PRN IV PUSH ANXIETY; Start 04/26/18 at 16: 15; Stop 04/27/18 at 16:15; Status DC Atropine Sulfate (Atropine Inj) 0.5 mg UNSCH PRN IV PUSH VAGAL REPONSE; Start 04/26/18 at 16:15 Sodium Chloride 250 ml @ 500 mls/hr ONCE PRN IV VAGAL REPONSE; Start 04/26/18 at 16:15; Stop 04/27/18 at 16:15; Status DC Ondansetron HCl (Zofran Inj) 4 mg Q4H PRN IV PUSH NAUSEA; Start 04/26/18 at 16: 15 Lidocaine HCl (Xylocaine 1% Inj (50 ml)) 10 ml UNSCH PRN INFIL SHEATH REMOVAL; Start 04/26/18 at 16:15; Stop 04/27/18 at 16:15; Status DC Bacitracin (Bacitracin Oint Packet) 0.9 gm ONCE ONCE TOP ; Start 04/26/18 at 16 :15; Stop 04/26/18 at 16:40; Status DC Miscellaneous Information ([facility] Nursing Information) ALL NURSING DEPARTME... UNSCH PRN .XX SEE LABEL COMMENTS; Start 04/26/18 at 16:25; Stop 04/27/18 at 16: 24; Status DC Ondansetron HCl (Zofran Odt) 4 mg Q4H PRN PO NAUSEA; Start 04/26/18 at 16:45 Metoprolol Tartrate (Lopressor) 25 mg Q12HR PO Last administered on 04/30/18at 09:30; Start 04/27/18 at 09:00 Warfarin Sodium (Coumadin) 5 mg DAILY@16 PO Last administered on 04/29/18at 17: 19; Start 04/28/18 at 16:00 Enoxaparin Sodium (Lovenox Inj) 60 mg Q12H SQ Last administered on 04/30/18at 09 :31; Start 04/29/18 at 09:00 Warfarin Sodium (Coumadin) 2.5 mg ONCE ONCE PO Last administered on 04/29/18at 17:19; Start 04/29/18 at 16:00; Stop 04/29/18 at 16:01; Status DC Lidocaine HCl (Xylocaine-Mpf 1% Inj) 10 ml STK-MED ONCE OTHER ; Start 04/26/18 at 12:00; Stop 04/29/18 at 16:15; Status DC Phenylephrine HCl (Neosynephrine/ NS 1000 Mcg/10ml Syr) 1,000 mcg STK-MED ONCE IV ; Start 04/26/18 at 12:00; Stop 04/29/18 at 16:15; Status DC Ondansetron HCl (Zofran Inj) 4 mg STK-MED ONCE IV ; Start 04/26/18 at 12:00; Stop 04/29/18 at 16:15; Status DC Propofol (Diprivan 200 Mg/20 ml Inj) 400 mg STK-MED ONCE IV ; Start 04/26/18 at 12:00; Stop 04/29/18 at 16:15; Status DC A/P Problem List: (1) Atrial fibrillation, persistent ICD Code: I48.1 - Persistent atrial fibrillation (2) Cardiomyopathy ICD Code: I42.9 - Cardiomyopathy, unspecified Status: Chronic Permanent Comment: Non-ischemic Last Edited By: Baltazar Pichardo MD on Apr 22, 2018 09:00 (3) AICD (automatic cardioverter/defibrillator) present ICD Code: Z95.810 - Presence of automatic (implantable) cardiac defibrillator Status: Chronic (4) S/P AVR ICD Code: Z95.2 - Presence of prosthetic heart valve Status: Chronic Permanent Comment: Last Edited By: Bipin Helton MD on Apr 28, 2018 09:29 (5) CHAO (acute kidney injury) ICD Code: N17.9 - Acute kidney failure, unspecified Assessment and Plan 87 years old female Paroxysmal Atrial fibrillation S/P EPS/AV bry ablation 04/26 - in SR Cardiomyopathy Non-ischemic - not in clinical failure EF 20-25% AICD in place S/P AVR St. Moncho mechanical bileaflet - Continue metoprolol 25 mg po bid- Aldactone 25 mg po daily- Demadex 20 mg po daily - on po KCL - no ANTHONY or ARB with relatively low BP - on Coumadin up to 5 mg daily 04/28 - INR 1.6 today- give extra Coumadin 2.5 today up to 2.6 on 04-30 - ff INR- goal 2.5-3.5 - Lovenox while INR subtherapeutic - CHAO (acute kidney injury) Likely secondary to dehydration. Much improved.- good po Continue to monitor. Avoid nephrotoxins. PT/OT daily - baseline ambulates with a walker Increase activity- out of bed for all meals CM consult for home health care arrangement C FOR RN AND PT AND OT DC if INR- 2.5-3.5 PCP- Dr. Cisse DC TO HOME TODAY Discharge Planning DC TO HOME TODAY Problem Qualifiers (1) Cardiomyopathy: Qualified Codes: I42.0 - Dilated cardiomyopathy Aniceto Roman DO Apr 30, 2018 11:43
[2018-04-30] MEDS ORDERED: METO25TA3 PO (11:52)
[2018-04-30] MEDS ORDERED: POTA-163 PO (11:52)
[2018-04-30] MEDS ORDERED: OCUVTAB PO (11:52)
[2018-04-30] MEDS ORDERED: FLUT55AE INH (11:52)
[2018-04-30] MEDS ORDERED: SPIR25TA PO (11:52)
[2018-04-30] MEDS ORDERED: TORS20TA PO (11:52)
[2018-04-30] MEDS ORDERED: Albuterol-Ipratropium Neb INH (11:52)
[2018-04-30] MEDS ORDERED: NORC5TAB PO (11:52)
[2018-04-30] MEDS ORDERED: WARF-20 PO (11:52)
[2018-04-30] MEDS ORDERED: NEBULIZER1 MI1 (11:57)
[2018-04-30] MEDS ORDERED: WALKER WHEELS/F1 MIS (11:57)
[2018-04-30 12:02] VITALS: BP 100/56; PULSE 79; RESP 18; TEMP 97.4; O2SAT 100
--- NOTE | 2018-04-30 12:03 | HHI.DS ---
Discharge Summary Admission Date Apr 21, 2018 at 01:33 Discharge Date: Apr 30, 2018 Admitting Diagnosis Afib with RVR (1) Atrial fibrillation, persistent ICD Code: I48.1 - Persistent atrial fibrillation Diagnosis: Principal (2) Cardiomyopathy ICD Code: I42.9 - Cardiomyopathy, unspecified Diagnosis: Principal Status: Chronic (3) AICD (automatic cardioverter/defibrillator) present ICD Code: Z95.810 - Presence of automatic (implantable) cardiac defibrillator Diagnosis: Principal Status: Chronic (4) S/P AVR ICD Code: Z95.2 - Presence of prosthetic heart valve Diagnosis: Principal Status: Chronic (5) CHAO (acute kidney injury) ICD Code: N17.9 - Acute kidney failure, unspecified Diagnosis: Principal Procedures 04/26 Electrophysiology study, CS cannulation, 3-D mapping, AV node ablation, device reprogramming, ventricular tachycardia, cardioversion. Brief History - From Admission 87-year-old female presents for an evaluation of abnormal vital signs. Daughter -in-law stated that home health nurse was at their house this afternoon and patient's blood pressure was recorded at 98 over 60s. She was advised to call the financial administration officer who told her to come to the emergency department to be evaluated. She also states that patient's heart rate goes up and down as well. Patient has no physical complaints, she denies any chest pain, shortness of breath, abdominal pain, fever, chills, headache. Patient has a history of atrial fibrillation, she reports compliance with her medications. CBC/BMP: 04/28/18 0847 Significant Findings Laboratory Tests Test 04/28/18 07:05 04/28/18 08:47 04/29/18 05:42 04/30/18 06:12 Prothrombin Time 14.0 SEC (9.8-11.6) 16.0 SEC (9.8-11.6) 26.1 SEC (9.8-11.6) Blood Urea Nitrogen 19 MG/DL (7-18) Random Glucose 71 MG/DL (74-106) Estimat Glomerular Filtration Rate 66 ML/MIN (>89) Imaging Last Impressions Chest X-Ray 04/20/182127 Signed Impressions: CONCLUSION: Subsegmental basilar opacity most characteristic of atelectasis. Cardiomegaly w ith pacer leads as above. PE at Discharge GENERAL: Awake alert and oriented 3 talkative and cooperative-- hard of hearing SKIN: Warm and dry. HEAD: Atraumatic. Normocephalic. EYES: Pupils equal and round. No scleral icterus. No injection or drainage. ENT: No nasal bleeding or discharge. Mucous membranes pink and moist. Tongue is midline NECK: Trachea midline. No JVD. Supple CARDIOVASCULAR: IRRegular rate and rhythm. S1-S2 no S3 or S4 RESPIRATORY: No accessory muscle use. Clear to auscultation. Breath sounds equal bilaterally. GASTROINTESTINAL: Abdomen soft, non-tender, nondistended. Hepatic and splenic margins not palpable. MUSCULOSKELETAL: Extremities without clubbing, cyanosis, or edema. No obvious deformities. NEUROLOGICAL: Awake and alert. No obvious cranial nerve deficits. Motor grossly within normal limits. 4 out of 5 muscle strength in the arms and legs. Normal speech. PSYCHIATRIC: Appropriate mood and affect; insight and judgment normal. Hospital Course 87-year-old female presents for an evaluation of abnormal vital signs. Daughter -in-law stated that home health nurse was at their house this afternoon and patient's blood pressure was recorded at 98 over 60s. She was advised to call the financial administration officer who told her to come to the emergency department to be evaluated. She also states that patient's heart rate goes up and down as well. Patient has no physical complaints, she denies any chest pain, shortness of breath, abdominal pain, fever, chills, headache. Patient has a history of atrial fibrillation, she reports compliance with her medications. PATIENT HAD PROCEDURE WITH DR RAMIREZ Patient's INR is now therapeutic at 2.6 Wants to go home today Can follow-up with Dr. Ramirez and with primary Dr. Bain We will discharge to home today with home health care with PT OT and RN Pt Condition on Discharge: Stable Discharge Disposition: Discharge Home Discharge Time: > 30 minutes Discharge Instructions DIET: Follow Instructions for: Heart Healthy Diet, Coumadin (Warfarin) Diet Speech Therapy-Diet Recommends: Regular Activities you can perform: Weight Bearing as Bruce Follow up Referrals: Cardiology - 2 Weeks with Jeffrey Ramirez MD Cardiology, Interventional - 2 Weeks with Devon Shultz DO PCP Follow-up - 2-3 Days with Quentin Bain MD SNF/[facility]/ with [facility] New Medications: Nebulizer (Nebulizer) 1 Mis Mis EA .XX DIRECTED for Shortness of Breath, #1 0 Refills Walker with Front Wheels (Walker with Front Wheels) 1 Mis Mis EA .XX DIRECTED for MOBILITY, #1 0 Refills Metoprolol Tartrate (Metoprolol Tartrate) 25 Mg Tab 25 MG PO Q12HR for Blood Pressure Management, #60 TAB [Albuterol-Ipratropium Neb] () 1 AMPULE NEBU 1 AMPULE INH Q2HR NEB PRN for WHEEZING, #180 AMPULE Continued Medications: Fluticasone Propionate Inh (Armonair Respiclick Inh) 55 Mcg/Actuation Aer.pow.ba 55 MG INH BID for Asthma Management, #1 INH 0 Refills (This prescription has been renewed) Hydrocodone-Acetaminophen (Hubert) 5-325 mg Tab 1-2 TAB PO Q6H PRN for PAIN, #20 TAB 0 Refills (This prescription has been renewed) Lactulose Liq (Lactulose Liq) 10 Gm/15 Ml Soln 30 ML PO Q6H PRN for CONSTIPATION, ML 0 Refills Multiple Vitamins W/ Minerals (Ocuvite) 1 Tab 1 TAB PO DAILY for Nutritional Supplement, #30 TAB 0 Refills (This prescription has been renewed) Potassium Chloride ER (Potassium Chloride ER) 20 Meq Tab 20 MEQ PO QID for Electrolyte Replacement, #120 TAB 0 Refills (This prescription has been renewed) (KLOR-CON) Spironolactone (Spironolactone) 25 Mg Tab 25 MG PO DAILY for Blood Pressure Management, #30 TAB 0 Refills (This prescription has been renewed) Torsemide (Torsemide) 20 Mg Tab 20 MG PO DAILY for Blood Pressure Management, #30 TAB 0 Refills (This prescription has been renewed) Warfarin (Warfarin) 4 Mg Tab 4 MG PO DAILY for Blood Clot Prevention, #30 TAB 0 Refills (This prescription has been renewed) Discontinued Medications: Acetaminophen (Acetaminophen) 325 Mg Capsule Cefuroxime (Ceftin) 250 Mg Tab 500 MG PO BID for 7 Days, #28 TAB Digoxin (Digoxin) 0.125 Mg Tab 0.125 MG PO DAILY for Regulate Heart Beat, #30 TAB 0 Refills Dofetilide (Tikosyn) 500 Mcg Cap 500 MCG PO BID for Regulate Heart Beat, #30 CAP 0 Refills For Creatinine Clearance >60 mL/min Metoprolol Tartrate (Metoprolol Tartrate) 50 Mg Tab 50 MG PO BID, #60 TAB 0 Refills Aniceto Roman DO Apr 30, 2018 12:03
[2018-04-30] MEDS: WARFARIN SOD 5 MG TAB PO SCH (13:50)
== END 2018-04-30 14:54 | disposition home or self-care (01) | DRG 274 ==
LOC: NEPE 21:06 → NEDA 04-21 01:33 → HIMW 04-21 03:20 → N04A 04-27 18:56
PROVIDERS: ADMIT Hospitalist; ATTEND Hospitalist
PROC: 02K83ZZ Map Conduction Mechanism, Percutaneous Approach (ICD-10-PCS; 2018-04-26)
PROC: 4A023FZ Measurement of Cardiac Rhythm, Percutaneous Approach (ICD-10-PCS; 2018-04-26)
PROC: 4A0234Z Measurement of Cardiac Electrical Activity, Percutaneous Approach (ICD-10-PCS; 2018-04-26)
PROC: 5A2204Z Restoration of Cardiac Rhythm, Single (ICD-10-PCS; 2018-04-26)
PROC: 02583ZZ Destruction of Conduction Mechanism, Percutaneous Approach (ICD-10-PCS; principal; 2018-04-26 15:00)
DX: I48.1 Persistent atrial fibrillation (principal); N17.9 Acute kidney failure, unspecified; I47.2 Ventricular tachycardia; I95.9 Hypotension, unspecified; I11.0 Hypertensive heart disease with heart failure; I42.0 Dilated cardiomyopathy; I50.22 Chronic systolic (congestive) heart failure; E86.0 Dehydration; F03.90 Unspecified dementia, unspecified severity, without behavioral disturbance, psychotic disturbance, mood disturbance, and anxiety; R79.1 Abnormal coagulation profile; H91.90 Unspecified hearing loss, unspecified ear; K21.9 Gastro-esophageal reflux disease without esophagitis; Z95.2 Presence of prosthetic heart valve; Z79.01 Long term (current) use of anticoagulants; Z95.810 Presence of automatic (implantable) cardiac defibrillator; Z95.0 Presence of cardiac pacemaker; Z87.891 Personal history of nicotine dependence; Z82.49 Family history of ischemic heart disease and other diseases of the circulatory system; R91.8 Other nonspecific abnormal finding of lung field; R60.9 Edema, unspecified; R94.31 Abnormal electrocardiogram [ECG] [EKG]
CPT/HCPCS: 70450; 71045; 71046; 80048; 80053; 80162; 81001; 82550; 83605; 83690; 83735; 84100; 84484; 85025; 85027; 85610; 85730; 87040; 87641; 92960; 93005; 93306; 93613; 93653; 96361; 96365; 96375; C1730; C1732; C2630; J0696; J1644; J1650; J2250; J2370; J2405; J3010; J7030; J7040; J7050; P9045